=== PATIENT | female | born 1950 | race Caucasian/White ===

== ENCOUNTER 2024-03-31 12:01 | Outpatient (AMB) | payer MEDICARE, SELFPAY ==
--- NOTE | 2024-03-31 12:30 | A.OFFPC_ITS ---
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 Intake Note: New patient visit Allergies atorvastatin Allergy (Unknown, Verified 03/31/24 12:39) Unknown diclofenac Allergy (Unknown, Verified 03/31/24 12:42) Unknown hydromorphone Allergy (Unknown, Verified 03/31/24 12:42) Nausea and Vomiting NSAIDS (Non-Steroidal Anti-Inflamma Allergy (Unknown, Verified 03/31/24 12:42) Diarrhea Tobacco use date assessed: 03/31/24 Fall risk assessment: 1 Fall in past year Last assessed Fall Risk: 03/31/24 Dental Screening Dental Screen Date: 03/31/24 Did you have a dental visit in the last 12 months?: Yes Did you have a dental problem in the last 6 months where you did not have access to dental care?: No Was dental information given to patient?: Patient has dentist HPI HPI Comments History of Present Illness Details This is a 74 year old female with a pmhx of controlled type 2 DM, HLD, HTN, asthma, OAB presenting to [facility] care from [facility]. She used to see Dr. Fang for asthma. She had an inhaler to take as needed. This month she went to urgent care for asthma. Prescribed Wixela. Symptoms calmed down. She would like to remain on maintenance inhaler, but she wants to know if she can take something that is not as strong. No PFT in years. No recollection of CXR. Asthma symptoms include SOB, wheezing, cough. She has allergies. She is on Singu lair. Printed orders for mammogram and bone density to be done at [facility]. History of ataxia-evaluation with Dr. Hastings. Put on vitamin b supplements. She says symptoms improved. HTN treated with Lisinopril. HLD treated with Rosuvastatin. LDL 88 in August 2023 (see scanned report). 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 She is overdue and will schedule her annual. Type 2 DM-last a1c 6.8%. She fractured her foot a few months ago. She is out of the boot. Seeing Dr. Vega. ROS: Constitutional: No unexplained weight loss, fever, chills, fatigue or night sweats. Respiratory: see HPI Cardiovascular: No chest pain, chest pressure or chest discomfort. No palpitations or pedal edema. Gastrointestinal: No anorexia, nausea, vomiting or diarrhea. No abdominal pain or blood in stool. Physical exam: Constitutional: Alert, in no distress. Ear, Nose and Throat: Canals clear. TMs normal. Normal nasal mucosa. No nasal discharge. No oral lesions. Neck: Supple, Full range of motion. No lymphadenopathy. Respiratory: Clear to auscultation. Cardiovascular: S1 S2 regular. No murmurs. Extremities: Warm and well perfused. No clubbing, cyanosis or edema. Psychiatric: Normal mood and affect [facility] Medical History (Updated 03/31/24 @ 13:45 by IGOR Dorsey) Ataxia Perennial allergic rhinitis Fracture of fifth metatarsal bone of right foot Mixed hyperlipidemia Essential hypertension Mild persistent asthma without complication Controlled type 2 diabetes mellitus Osteoarthritis Allergic rhinitis Diabetes HTN (hypertension) Surgical History (Updated 03/31/24 @ 13:45 by IGOR Dorsey) Hx of tubal ligation History of appendectomy H/O shoulder replacement Family History (Updated 03/31/24 @ 12:49 by Rosio Stokes CMA) Mother Stroke Father CKD (chronic kidney disease) Diabetes Sister Arthritis Social History (Updated 03/31/24 @ 12:50 by Rosio Stokes CMA) Housing: House Patient Tobacco Use Status: Never used Tobacco e-Cigarette/Vaping Use: Never Used service: Yes Current occupational status: retired Cognitive needs: No Hearing needs: No Vision needs: No Questionnaire AUDIT C Alcohol Use Questionnaire (AUDIT-C) 1. How often do you have a drink containing alcohol?: Never 3. How often do you have six or more drinks on one occasion?: Never Total Score: 0 Physical exam (Primary Care) Vital Signs: Last Vital Signs Pulse 96 03/31/24 12:36 Resp 16 03/31/24 12:36 BP 138/80 03/31/24 12:36 Pulse Ox 97 03/31/24 12:36 Oxygen Delivery Method Room Air 03/31/24 12:36 BMI result Body Mass Index 34.6 Tobacco/Smoking Status: Tobacco use Status Tobacco use date assessed 03/31/24 03/31/24 12:47 Patient Tobacco Use Status Never used Tobacco 03/31/24 12:50 e-Cigarette/Vaping Use Never Used 03/31/24 12:50 Assessment and Plan Assessment & Plan (1) Controlled type 2 diabetes mellitus: Code(s): E11.9 - Type 2 diabetes mellitus without complications (2) Mild persistent asthma without complication: Code(s): J45.30 - Mild persistent asthma, uncomplicated (3) Essential hypertension: Code(s): I10 - Essential (primary) hypertension (4) Mixed hyperlipidemia: Code(s): E78.2 - Mixed hyperlipidemia (5) Perennial allergic rhinitis: Code(s): J30.89 - Other allergic rhinitis Plan Fasting labs ordered. She has orders for mammo and dexa and will call [facility] to schedule. Update PFT and obtain CXR for asthma. Start Pulmicort. SEs and administration reviewed. Albuterol 2 puffs q4h prn. Continue other medications. MWV in 3 months. Orders: Orders Lipid Panel Today E11.9 - Type 2 diabetes mellitus without complications, J45.30 - Mild persistent asthma, uncomplicated Hemoglobin A1c Today E11.9 - Type 2 diabetes mellitus without complications, J45.30 - Mild persistent asthma, uncomplicated Basic Metabolic Panel Today E11.9 - Type 2 diabetes mellitus without complications, J45.30 - Mild persistent asthma, uncomplicated MM screening mammo BI Today Z12.31 - Encounter for screening mammogram for malignant neoplasm of breast XR DEXA axial skeleton Today Z78.0 - Asymptomatic menopausal state XR chest 2V Today J45.30 - Mild persistent asthma, uncomplicated PFT pulmonary function test Today J45.30 - Mild persistent asthma, uncomplicated Medications: New budesonide 180 mcg/actuation (Pulmicort Flexhaler) Gargle and rinse mouth after each use. 1 inh inhalation Q12H 1 ea 5RF Coding Level of Care Code New Pt Level 4 (49544) Complex EM visit Add On G2211 Diagnoses Controlled type 2 diabetes mellitus E11.9 Mild persistent asthma without complication J45.30 Essential hypertension I10 Mixed hyperlipidemia E78.2 Perennial allergic rhinitis J30.89
[2024-03-31 12:36] VITALS: BP 138/80; PULSE 96; RESP 16; O2SAT 97; BMI 34.6
== END 2024-03-31 13:25 | disposition home or self-care (01) ==
PROVIDERS: PCP Physician Assistant Medical; Visit Provider Physician Assistant Medical
DX: E11.9 Type 2 diabetes mellitus without complications (principal); J45.30 Mild persistent asthma, uncomplicated; I10 Essential (primary) hypertension; E78.2 Mixed hyperlipidemia; J30.89 Other allergic rhinitis
CPT/HCPCS: 99204; G2211

== ENCOUNTER 2024-07-03 10:27 | Outpatient (AMB) | payer MEDICARE, SELFPAY ==
--- NOTE | 2024-07-03 10:34 | A.OFFPC_ITS ---
Vital Signs 07/03/24 10:39 Height 5 ft 5 in Weight 191 lb 8 oz BMI 31.9 BP 126/74 Blood Pressure Location Rt brachial Position Sitting Pulse 88 Pulse Source Pulse Oximeter Pulse Oximetry (%) 99 Oxygen Delivery Method Room Air Intake Visit Reasons: follow up Allergies atorvastatin Allergy (Unknown, Verified 03/31/24 12:39) Unknown diclofenac Allergy (Unknown, Verified 03/31/24 12:42) Unknown hydromorphone Allergy (Unknown, Verified 03/31/24 12:42) Nausea and Vomiting NSAIDS (Non-Steroidal Anti-Inflamma Allergy (Unknown, Verified 03/31/24 12:42) Diarrhea Tobacco use date assessed: 03/31/24 Dental Screening Dental Screen Date: 03/31/24 HPI HPI Comments History of Present Illness Details This is a 74 year old female with a pmhx of controlled type 2 DM, HLD, HTN, asthma, OAB presenting for annual follow up. Asthma-taking Arnuity 100 mcg 1 puff a day. She has not needed to use her rescue inhaler in the past 3 months. No respiratory infections since her last visit. No ER visits or hospitalizations. She would like to decrease Arnuity to 50 mcg. She used to see Dr. Fang for asthma. She had an inhaler to take as needed. She had 1 asthma exacerbation prior to seeing me in March at which time she was placed on Wixela. She did not require systemic steroids. She has a PFT scheduled 07/21/2024, and she will have the chest x-ray completed the same day. She is on Singulair. She received a COVID-19 booster and flu vaccine this season. She has received the RSV at [facility] as well. She will double check to make sure she is up to date pneumonia vaccine at her [facility]. She has an umbilical hernia for years. It doesn't hurt, but it bothers her that it sticks out. She saw a surgeon at [facility] years ago, and she did not like his bedside manner. She declines referral for a 2nd opinion today. Bone density and mammogram were done a [facility]. She received letters that they were normal The records have been requested. History of ataxia-evaluation with Dr. Hastings. Put on vitamin b supplements with symptom improvement. HTN treated with Lisinopril. HLD treated with Rosuvastatin. LDL 88 in August 2023 (see scanned report). 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 She is overdue and will schedule her annual. Type 2 DM-last a1c 6.8%. Overdue for labs. The patient is not sure when she last did a colonoscopy, but it was done at [facility]. Records requested. ROS: Constitutional: No unexplained weight loss, fever, chills, fatigue or night sweats. Eyes: No vision changes, blurry vision, double vision, eye pain, eye redness, eye discharge. ENT: No hearing loss, sneezing, congestion, runny nose or sore throat. Respiratory: No shortness of breath, cough or sputum production. Cardiovascular: No chest pain, chest pressure or chest discomfort. No palp itations or pedal edema. Gastrointestinal: No anorexia, nausea, vomiting or diarrhea. No abdominal pain or blood in stool. Genitourinary: No dysuria, hematuria, urinary frequency. Neurologic: No headache, dizziness, syncope, unilateral weakness, ataxia, numbness or tingling in the extremities. Musculoskeletal: No muscle pain Hematologic/Lymphatics: No bleeding or bruising. No painful lymph nodes. Skin: No rash Endocrine: No cold or heat intolerance. No polyuria or polydipsia. Psychiatric: No depression or anxiety. Physical exam: Constitutional: Alert, in no distress. Head: Normocephalic. Eyes: Pupils are equal, round and reactive to light. Extraocular muscles intact. Ear, Nose and Throat: Canals clear. TMs price and pearly. Clear air-fluid bubbles on the right. Normal nasal mucosa. No nasal discharge. No oral lesions. Neck: Supple, Full range of motion. No lymphadenopathy. No palpable thyroid masses. Respiratory: Clear to auscultation. Cardiovascular: S1 S2 regular. No murmurs. No carotid bruits. Gastrointestinal: Abdomen soft, non-tender, non-distended. Normal bowel sounds. No palpable masses. Moderate sized, reducible umbilical hernia.. Skin: No rashes Extremities: Warm and well perfused. No clubbing, cyanosis or edema. 3+ peripheral pulses bilaterally. Psychiatric: Normal mood and affect [facility] Medical History (Updated 03/31/24 @ 13:45 by IGOR Dorsey) Ataxia Perennial allergic rhinitis Fracture of fifth metatarsal bone of right foot Mixed hyperlipidemia Essential hypertension Mild persistent asthma without complication Controlled type 2 diabetes mellitus Osteoarthritis Allergic rhinitis Diabetes HTN (hypertension) Surgical History (Updated 03/31/24 @ 13:45 by IGOR Dorsey) Hx of tubal ligation History of appendectomy H/O shoulder replacement Family History (Updated 03/31/24 @ 12:49 by Rosio Stokes CMA) Mother Stroke Father CKD (chronic kidney disease) Diabetes Sister Arthritis Social History (Updated 03/31/24 @ 12:50 by Rosio Stokes CMA) Housing: House Patient Tobacco Use Status: Never used Tobacco e-Cigarette/Vaping Use: Never Used service: Yes Current occupational status: retired Cognitive needs: No Hearing needs: No Vision needs: No Questionnaire AUDIT C Alcohol Use Questionnaire (AUDIT-C) 2. How many drinks containing alcohol do you have on a typical day when you are drinking?: 1 or 2 3. How often do you have six or more drinks on one occasion?: Never Total Score: 0 Physical exam (Primary Care) Vital Signs: Last Vital Signs Pulse 88 07/03/24 10:39 BP 126/74 07/03/24 10:39 Pulse Ox 99 07/03/24 10:39 Oxygen Delivery Method Room Air 07/03/24 10:39 BMI result Body Mass Index 31.9 Tobacco/Smoking Status: Tobacco use Status Tobacco use date assessed 03/31/24 07/03/24 10:36 Patient Tobacco Use Status Never used Tobacco 07/03/24 10:36 e-Cigarette/Vaping Use Never Used 07/03/24 10:36 Coding Level of Care Code Est Pt Level 5 (24104) Complex EM visit Add On G2211 Diagnoses Controlled type 2 diabetes mellitus E11.9 Mild persistent asthma without complication J45.30 Essential hypertension I10 Mixed hyperlipidemia E78.2 Perennial allergic rhinitis J30.89 Time Spent (min) 46 Comment Chart review, direct patient care, completing documentation Assessment & Plan Assessment & Plan (1) Controlled type 2 diabetes mellitus: Code(s): E11.9 - Type 2 diabetes mellitus without complications Category: Medical Plan: Discussed pathophysiology of Type II Diabetes Mellitus with the patient in detail.? 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 Discussed lifestyle modification with the patient. Recommended 30 minutes of moderately vigorous exercise 5 days per week to promote weight loss. Eye exam up-to-date. Check hemoglobin A1c. Ordered urine testing for microalbumin. (2) Mild persistent asthma without complication: Code(s): J45.30 - Mild persistent asthma, uncomplicated Category: Medical Plan: She can try step-down in therapy to Arnuity 50 mcg 1 puff once daily. Continue albuterol 2 puffs every 4 hours as needed for coughing, wheezing and shortness of breath. If she requires her rescue inhaler more than once a week she will contact the office. Continue Singulair 10 mg daily. She will have PFT and chest x-ray completed-see HPI. (3) Essential hypertension: Code(s): I10 - Essential (primary) hypertension Category: Medical Plan: Controlled. Continue lisinopril. Recommended low-sodium diet and avoidance of caffeine. (4) Mixed hyperlipidemia: Code(s): E78.2 - Mixed hyperlipidemia Category: Medical Plan: Continue rosuvastatin. Recommended the Mediterranean diet and weight loss. (5) Perennial allergic rhinitis: Code(s): J30.89 - Other allergic rhinitis Category: Medical Plan: Continue Zyrtec and Singulair. Plan Follow up in 6 months or sooner as needed. Orders: Orders Comprehensive Met. Panel Today E11.9 - Type 2 diabetes mellitus without complications Complete Blood Count Auto Diff Today I10 - Essential (primary) hypertension, J30.89 - Other allergic rhinitis Microalbumin, Random (w Creat) Today E78.2 - Mixed hyperlipidemia, I10 - Essential (primary) hypertension TSH reflex Free T4 Today I10 - Essential (primary) hypertension Medications: New fluticasone furoate 50 mcg/actuation (Arnuity Ellipta) 1 inh inhalation DAILY 30 ea 3RF lisinopril 40 mg PO DAILY 90 tabs 3RF Discontinued fluticasone furoate 100 mcg/actuation (Arnuity Ellipta) Discontinued Reason: Doctor's Order 1 inh inhalation DAILY 30 ea 5RF
[2024-07-03 10:39] VITALS: BP 126/74; PULSE 88; O2SAT 99; BMI 31.9
== END 2024-07-03 11:28 | disposition home or self-care (01) ==
PROVIDERS: PCP Physician Assistant Medical; Visit Provider Physician Assistant Medical
DX: E11.9 Type 2 diabetes mellitus without complications (principal); J45.30 Mild persistent asthma, uncomplicated; I10 Essential (primary) hypertension; E78.2 Mixed hyperlipidemia; J30.89 Other allergic rhinitis

== ENCOUNTER → 2024-07-03 10:27 | Outpatient (BNVA) | payer MEDICARE, SELFPAY | PROVIDERS: PCP Physician Assistant Medical; Visit Provider Physician Assistant Medical | DX: E11.9 Type 2 diabetes mellitus without complications (principal); J45.30 Mild persistent asthma, uncomplicated; I10 Essential (primary) hypertension; E78.2 Mixed hyperlipidemia; J30.89 Other allergic rhinitis; Z79.899 Other long term (current) drug therapy | CPT/HCPCS: 99212 ==

== ENCOUNTER 2024-07-13 12:46 | Outpatient (REF) | payer MEDICARE, SELFPAY ==
[2024-07-13 14:25] LABS: MANUAL DIFF FLAG NO
[2024-07-13 14:27] LABS: Basophils Absolute Auto 0.1 X10*3/uL (0.0-0.2); Basophils Percent Auto 0.6 % (0-2); Eosinophils Percent Auto 12.4 % (0-4); Hematocrit 40.1 % (37.0-47.0); Hemoglobin 13.1 g/dl (12.0-16.0); Imm Gran Abs Auto 0.05 X10*3/uL (0.00-0.03); Imm Gran Pct Auto 0.6 % (0.0-0.4); Lymphocytes Absolute Auto 2.9 X10*3/uL (1.2-4.9); Lymphocytes Percent Auto 34.8 % (20-40); Mean Corpuscular HGB Conc 32.7 g/dl (31.0-35.0); Mean Corpuscular Hemoglobin 30.8 pg (27.0-33.0); Mean Corpuscular Volume 94.1 fL (80.0-98.0); Mean Platelet Volume 11.1 fL (9.4-12.3); Monocytes Absolute Auto 0.5 X10*3/uL (0.1-1.2); Monocytes Percent Auto 5.4 % (2-11); Neutrophils Absolute Auto 3.9 x10*3/uL (2.0-8.3); Neutrophils Percent Auto 46.2 % (45-73); Platelet Count 213 X10*3/uL (160-400); Red Blood Count 4.26 X10*6/uL (4.20-5.50); Red Cell Distribution Width 13.2 % (11.0-16.0); White Blood Count 8.3 X10*3/uL (4.8-10.8)
[2024-07-13 14:44] LABS: Alanine Aminotransferase 48 U/L (0-31); Albumin Level 4.1 g/dL (3.5-5.0); Alkaline Phosphatase 112 U/L (39-117); Anion Gap 13 (12-20); Aspartate Amino Transferase 61 U/L (5-31); Bilirubin Total 0.4 mg/dL (0.0-1.0); Blood Urea Nitrogen 17 mg/dL (9-16); Calcium 11.2 mg/dL (8.4-10.2); Carbon Dioxide 26 mmol/L (22-29); Chloride 102 mmol/L (96-108); Cholesterol 171 mg/dL (<200); Estimated Glomerular Filt Rate 52; Glucose Random 306 mg/dL (60-115); HDL Cholesterol 34 mg/dL (>40); LDL Cholesterol Calculated 85 mg/dL (<100); Potassium 4.1 mmol/L (3.3-5.1); Sodium 137 mmol/L (135-145); Total Protein 7.6 g/dL (6.5-8.0); Triglycerides 264 mg/dL (<150)
[2024-07-13 14:59] LABS: Creatinine Urine 216.91 mg/dL; Microalbum/Creatinine Ratio Ur 28.5 ug/mg cr (<30)
[2024-07-13 15:00] LABS: TSH reflex Free T4 1.03 uIU/mL (0.32-4.0)
[2024-07-13 15:16] LABS: Hemoglobin A1C 482.2248 umol/L; Total Hemoglobin (HGBA1C) 3376.9582 umol/L
[2024-07-13 15:22] LABS: Hemoglobin A1c % > 14.0 % (<6.0)
== END 2024-07-13 12:47 | disposition home or self-care (01) ==
LOC: HO.WFDLDS 12:46
PROVIDERS: Visit Provider Physician Assistant Medical
DX: I10 Essential (primary) hypertension (principal); J30.89 Other allergic rhinitis; E11.9 Type 2 diabetes mellitus without complications; E78.2 Mixed hyperlipidemia; J45.30 Mild persistent asthma, uncomplicated
CPT/HCPCS: 36415; 80053; 80061; 82043; 82570; 83036; 84443; 85025

== ENCOUNTER 2024-07-21 08:43 | Outpatient (AMB) | payer MEDICARE, SELFPAY ==
--- NOTE | 2024-07-21 07:41 | A.OFFVIS_ITS ---
Vital Signs 07/21/24 08:48 Height 5 ft 5 in Weight 189 lb 9.561 oz BMI 31.5 BP 118/72 Blood Pressure Location Rt brachial Position Sitting Pulse 72 Pulse Source Pulse Oximeter Intake Visit Reasons: type 2 dm/LVM Intake Note: NEW Patient presents today to establish treatment for Type 2 Diabetes Mellitus: Last Diabetic eye exam was on: DUE Last Podiatry exam was on: Does not see a Adobe Architect Most recent HbA1c: >14.0%, 07/13/2024 Random Glucose- 250 mg/dL, Today Engineering Program Manager Required: No Accompanied by: Self / Same As Patient Allergies atorvastatin Allergy (Unknown, Verified 07/21/24 08:52) Unknown diclofenac Allergy (Unknown, Verified 07/21/24 08:52) Unknown hydromorphone Allergy (Unknown, Verified 07/21/24 08:52) Nausea and Vomiting NSAIDS (Non-Steroidal Anti-Inflamma Allergy (Unknown, Verified 07/21/24 08:52) Diarrhea HPI Comments Details: 74 YO female who is seen in consultation for T2DM at the request of PCP. She had broken her foot in January and was moving less. Was seen in March for URI and started on inhaler which she believes caused diarrhea and increased nasal congestion. Because she has been she has been drinking a great deal juice which he has cut back on over the last few weeks. Diarrhea is improving. Initially diagnosed with T2DM diagnosed at age 70 pre diabetic for many years Was initially started on treatment with diet and exercise Current regimen: metformin ER 500 mg bid Was prescribed 07/03/24 but she did not due to having diarrhea and no way to check her sugars. Glucometer and supplies and YEOXIN VMall Cherri 3 were all sent to her pharmacy. Reports feeling low sugars: none Most recent A1C >14.0 up from 6.8% Family history of T2DM in father, brother Has eyes checked yearly, last eye exam June 2024, [denies] retinopathy. Denies neuropathy, last foot exam today in the office does not see podiatry. Has nephropathy, on ANGELA. 07/12/24 microalbumin 62.0 eGFR 52 Has HLD, on statin. Last LDL 85 as measured on 07/12/2024. [Denies] CAD. very rare CP when she lies on her right side due to previous surgery, this is reproducable when she pushed on chest and upper arm. Some mild nexk pain Diet: no particular diet no excess sweets Weight: weight down 25 pounds Ate less secondary to decrease appetite, mucous and had diarrhea which is improving No prior diabetes education. [facility] screen Fibrosis-4 (Fib-4) Index for liver fibrosis (calculated on lab work done:07/12/24 ) 3.06 points Advanced fibrosis Metavir stage F3 to F4 Approximate Fibrosis stage Elin 2-3 *Use with caution in patients <35 or >65 years old, as the score has been shown to be less reliable in these patients. Prior Imaging none Action Plan: Patient with elevated liver enzymes and fib 4 index shows liver fibrosis although this tool maybe less reliable in patients over 65 years old. PCP alerted to +Fib 4 screen for liver fibrosis [facility] Medical History (Updated 07/21/24 @ 14:39 by IGOR Dorsey) Elevated LFTs Uncontrolled type 2 diabetes mellitus with hyperglycemia Ataxia Perennial allergic rhinitis Fracture of fifth metatarsal bone of right foot Mixed hyperlipidemia Essential hypertension Mild persistent asthma without complication Osteoarthritis Allergic rhinitis Diabetes HTN (hypertension) Surgical History Hx of tubal ligation History of appendectomy H/O shoulder replacement Family History Mother Stroke Father CKD (chronic kidney disease) Diabetes Sister Arthritis Social History Housing: House Patient Tobacco Use Status: Never used Tobacco e-Cigarette/Vaping Use: Never Used service: Yes Current occupational status: retired Cognitive needs: No Hearing needs: No Vision needs: No Physical Exam Vital Signs: Last Vital Signs Pulse 72 07/21/24 08:48 BP 118/72 07/21/24 08:48 BMI result Body Mass Index 31.5 Absence of Cushingoid features. Absence of acromegalic features. Neck exam reveals nl size thyroid about 15 gms. No thyroid nodules palpable. No carotid bruits present. Lungs CTA. Heart S1 S2, Reg R/R. No M/R/ G. Skin exam reveals absence of vitiligo or acanthosis nigricans. Abdominal exam reveals Soft NT/ND with NA BS. No organomegaly present. Const Other: Absence of Cushingoid features. Absence of acromegalic features. Neck exam reveals nl size thyroid about 15 gms. No thyroid nodules palpable. No carotid bruits present. Lungs CTA. Heart S1 S2, Reg R/R. No M/R G. Skin exam reveals absence of vitiligo or acanthosis nigricans. No edema Visual exam of foot performed. No ulcerations or open lesions. No inter digit maceration or fissuring. + onychomycosis,nailbeds yellow, thickened but not elongated, no callouses. Sensation diminshed to monofilament exam. Vibratory sensation is diminshed with 128 Hz tuning fork. Neck Other: . Extrem Other: Visual exam of foot performed. No ulcerations or open lesions. No onchomycosis, no callouses.Pulses 2 + distally Sensation intact to monofilament exam. Vibratory sensation sensed is intact with 128 Hz tuning fork Results Reviewed Results Reviewed: Laboratory Last Values Glucose (Clinic) 250 mg/dL (60-115) H 07/21/24 08:51 Assessment & Plan Assessment & Plan (1) Uncontrolled type 2 diabetes mellitus with hyperglycemia: Code(s): E11.65 - Type 2 diabetes mellitus with hyperglycemia Category: Medical Plan: Type 2 diabetic with poor control and A1c greater than 14%07/13/24. She is afraid of needles in adamant about not wanting to go on insulin. She has elevated liver function tests with fib 4 screen positive for fibrosis and we will hold off on considering GLP 1 receptor agonist until she sees GI. She has been following a better diet and I have called her pharmacy to confirm they have the prescription for test strips, lancets and glucometer. I spoke directly with the pharmacist and they have all 3 of these but her waiting for colds on the prescription which I have sent. Awaiting response on Pintley 3 to see if her insurance will cover. Orders: Referrals Diabetes Education Referral E11.65 - Type 2 diabetes mellitus with hyperglycemia Medications: Changed From blood sugar diagnostic As directed to check glucose up to 3 times daily 100 ea 5RF To blood sugar diagnostic (FreeStyle Lite Strips) As directed to check glucose up to 3 times daily for uncontrolled diabetes type 2 11.9 100 ea 5RF From lancets Use to monitor blood glucose 3 times daily. 100 ea 5RF E11.65 - Type 2 diabetes mellitus with hyperglycemia To lancets (FreeStyle Lancets) Use to monitor blood glucose 3 times daily. uncontrolled diabetes type 2 11.9 100 ea 5RF E11.9 E11.65 - Type 2 diabetes mellitus with hyperglycemia From blood-glucose meter,continuous Use daily to monitor blood glucose levels continuously. 1 ea 0RF To blood-glucose meter,continuous (FreeStyle Cherri 3 [place]) Use daily to monitor blood glucose levels continuously. 1 ea 0RF 11.9 From blood-glucose meter 3 times a day to check blood glucose 1 ea 0RF E11.9 - Type 2 diabetes mellitus without complications To blood-glucose meter (FreeStyle Lite Meter kit) 3 times a day to check blood glucose for uncontolled diabetes type 2 11.9 1 ea 0RF E11.9 - Type 2 diabetes mellitus without complications From blood-glucose sensor apply new sensor every 14 days 2 ea 11RF E11.65 - Type 2 diabetes mellitus with hyperglycemia To blood-glucose sensor (FreeStyle Cherri 3 Sensor device) apply new sensor every 14 days 2 ea 11RF E11.9 E11.65 - Type 2 diabetes mellitus with hyperglycemia Discontinued fluticasone furoate 50 mcg/actuation Discontinued Reason: Doctor's Order 1 inh inhalation DAILY 30 ea 3RF Coding Level of Care Code New Pt Level 4 (36224) Complex EM visit Add On G2211 Diagnoses Uncontrolled type 2 diabetes mellitus with hyperglycemia E11.65 Time Spent (min) 40 Comment time spent hpi, pe, notes plan
[2024-07-21 08:48] VITALS: BP 118/72; PULSE 72; BMI 31.5
[2024-07-21 09:00] LABS: Glucose, Whole Blood 250 mg/dL (60-115)
== END 2024-07-21 09:36 | disposition home or self-care (01) ==
LOC: HO.ENCR 08:43
PROVIDERS: PCP Physician Assistant Medical; Visit Provider Nurse Practitioner Adult Health
DX: E11.65 Type 2 diabetes mellitus with hyperglycemia (principal)
CPT/HCPCS: 99204; G2211

== ENCOUNTER 2024-07-21 12:35 | Outpatient (REF) | payer MEDICARE, SELFPAY ==
--- NOTE | 2024-07-21 13:01 | PFT_ITS ---
Flows: FEV1: 108 % of predicted at 2.32 L FVC: 101 % of predicted at 2.82 L FEV1/FVC: 82 % Bronchodilator response: Present in small to medium airways only Volumes: Total lung capacity: 92 % of predicted at 4.67 L Residual volume: 82 % of predicted at 1.74 L Slow vital capacity: 101 % of predicted at 2.93 L Expiratory reserve volume: 30 % of predicted at 0.22 L Diffusion capacity: Borderline mildly decreased. Impression: No obstructive or restrictive ventilatory defects. Bronchodilator response present in small to medium airways only. Decreased expiratory reserve volume suggests extrathoracic restriction likely secondary to abdominal obesity. MTDD
== END 2024-07-21 12:36 | disposition home or self-care (01) ==
LOC: HO.RESP 12:35
PROVIDERS: PCP Physician Assistant Medical; Visit Provider Physician Assistant Medical
DX: J45.30 Mild persistent asthma, uncomplicated (principal); E11.65 Type 2 diabetes mellitus with hyperglycemia
CPT/HCPCS: 82947; 94010; 94640; 94727; 94729; 99202

== ENCOUNTER → 2024-07-21 13:01 | Outpatient (BNV) | payer MEDICARE, SELFPAY | PROVIDERS: PCP Physician Assistant Medical; Visit Provider Internal Medicine Pulmonary Disease | DX: J45.30 Mild persistent asthma, uncomplicated (principal) | CPT/HCPCS: 94060; 94727; 94729 ==

== ENCOUNTER 2024-07-31 13:26 | Outpatient (AMB) | payer MEDICARE, SELFPAY ==
--- NOTE | 2024-07-31 13:30 | MHC.AMDMED ---
Intake Intake Visit Reasons: [id number] Allergies atorvastatin Allergy (Unknown, Verified 07/21/24 08:52) Unknown diclofenac Allergy (Unknown, Verified 07/21/24 08:52) Unknown hydromorphone Allergy (Unknown, Verified 07/21/24 08:52) Nausea and Vomiting NSAIDS (Non-Steroidal Anti-Inflamma Allergy (Unknown, Verified 07/21/24 08:52) Diarrhea HPI Comprehensive Diabetes Asmnt Most Recent Diabetes Results: Microalb/Creat Ratio 28.5 ug/mg cr (<30) 07/13/24 Cholesterol 171 mg/dL (<200) 07/13/24 HDL Cholesterol 34 mg/dL (>40) L 07/13/24 Triglycerides 264 mg/dL (<150) H 07/13/24 Creatinine 1.03 mg/dL (0.5-1.4) 07/13/24 Blood Urea Nitrogen 17 mg/dL (9-16) H 07/13/24 Sodium 137 mmol/L (135-145) 07/13/24 Potassium 4.1 mmol/L (3.3-5.1) 07/13/24 Chloride 102 mmol/L (96-108) 07/13/24 Carbon Dioxide 26 mmol/L (22-29) 07/13/24 Calcium 11.2 mg/dL (8.4-10.2) H 07/13/24 AST 61 U/L (5-31) H 07/13/24 ALT 48 U/L (0-31) H 07/13/24 Total Protein 7.6 g/dL (6.5-8.0) 07/13/24 Albumin 4.1 g/dL (3.5-5.0) 07/13/24 [facility] Medical History (Updated 07/21/24 @ 14:39 by IGOR Dorsey) Elevated LFTs Uncontrolled type 2 diabetes mellitus with hyperglycemia Ataxia Perennial allergic rhinitis Fracture of fifth metatarsal bone of right foot Mixed hyperlipidemia Essential hypertension Mild persistent asthma without complication Osteoarthritis Allergic rhinitis Diabetes HTN (hypertension) Surgical History Hx of tubal ligation History of appendectomy H/O shoulder replacement Family History Mother Stroke Father CKD (chronic kidney disease) Diabetes Sister Arthritis Social History Housing: House Patient Tobacco Use Status: Never used Tobacco e-Cigarette/Vaping Use: Never Used service: Yes Current occupational status: retired Cognitive needs: No Hearing needs: No Vision needs: No Assessment & Plan Assessment & Plan (1) Uncontrolled type 2 diabetes mellitus with hyperglycemia: Code(s): E11.65 - Type 2 diabetes mellitus with hyperglycemia Plan: Diabetes self-management education and support participation record Assessment/scale: 1= needs instructed? 2= needs review? 3= comprehend keep point? 4= demonstrates understanding/ competent? NC= Not Covered Topics Learning Objective: Initial visit Initial or post srvc Initial or post srvc Initial or post srvc Initial or post srvc Initial or post srvc Post srvc Comments Pre Edu-assessment/plan Outcome or reassess Outcome or reassess Outcome or reassess Outcome or reassess Outcome or reassess Outcome or reassess Diabetes pathophysiology 1 Healthy eating 2 Being active 2 Taking medication 1 Monitoring glucose 1 Acute complication 1 Chronic complicated 2 Lifestyle and healthy coping 1 Diabetes distress in support 1 ?Diabetes pathophysiology: ?Defined diabetes med identify own type of diabetes; list 3 options for treating diabetes Healthy eating: ?Described effect of type, amount and ?timing of food on blood glucose; list 3 methods for planning meal Being active: ?State effect of exercise on blood glucose level Taking medication: ?State effect of diabetes medications on diabetes; name diabetes medications taking, action and side effects Monitoring glucose: ?Identify recommended blood glucose targets and personal target Acute complication: ?List symptoms and treatment of hyper and hypoglycemia, DKA, sick day guidelines and guidelines for severe weather or situations of crisis and diabetes supply manage Chronic complication: ?To find the relationship of blood glucose levels to long-term complications of diabetes in screening and preventative measures Lifestyle and healthy coping: ?Described lifestyle and healthy coping strategies to rule out diabetes self-management Diabetes to stress and support: ?Recognize Diabetes to stress and be able to identified support options Learning objectives: The patient was provided with verbal and written education on the following topics as outlined below. The patient met all learning objectives and was able to verbalize understanding and provide teach back of education topics discussed . The patient was provided with the opportunity to ask questions and all questions were answered. Patient Assessment Assess patient education level/literacy/barriers, patient can identify carbs that she is currently eating from carb list Patient questions/concerns, patient's last A1c on 07/13/2024 14%. Patient stated she believes because she was drinking large quantities of fruit juice that has driven her A1c up. Since end of June she is reduce the amount of fruit juice, and started on metformin ER 500 mg b.i.d. She is currently awaiting glucometer supplies from [facility] What is Diabetes? Pathophysiology How the body produces and uses insulin Identify type of DM Risk factors Signs of Diabetes Brief overview of Diabetes Management Monitoring blood sugar Following a meal plan Regular exercise Maintaining a healthy weight Taking medication as needed Members of the care team (PCP, RN, MA, RD, CDE, cash controller) Blood glucose monitoring When/how often to test Target blood sugar ranges Suggested to patient when she get glucometer she test glucose once a day at very times of the day. Either before meals, or 2 hours post meal Introduction to Nutrition Importance of healthy diet in managing DM Diet is personalized to individual preference Review patient?s regular diet/food preferences Who prepares meals/does food shopping/ Dining out?/ Barriers? How diet effects glucose Eating 3 balanced meals a day with small, healthy snacks between meals Review food groups Carbohydrates: What is a carbohydrate/Which food/food groups are considered carbohydrates Effect of carbohydrates on blood glucose Portion sizes Reading food labels Basic carb counting (if applicable per nursing assessment) Plate method Meal planning Recommendations: Follow plate method, consistent carbs and read nutritional labels. Smart Goal:Identify the current foods that she is eating that contain carbohydrate Educational Materials: The patient was provided with the following written educational materials: Planning Healthy Meals Handout Patient Response to instructions: Comprehension of Instructions: Fair Readiness to make changes: Contemplation How confident they feel about making changes: Positive Portions of this note were created using voice recognition software, please excuse any words or phrases that may have been misinterpreted. Patient Instructions: Include regular daily activity. ADA recommends 30 minutes of exercise 5 days a week. Weight loss talk to PCP or Wealth Management Manager before starting new plan. Test blood sugar as directed; Fasting and 2hpp largest meal. Watch trends in results. Utilize results and to assess how food, physical activity and medications affect blood sugar results. Bring glucometer or CGM to next visit. Be knowledgeable about diabetes medication, its action, side effects, efficacy, toxicity, prescribed dosage, appropriate timing and frequency of administration, effect of missed and delayed doses and instructions for storage, travel and safety. Problem solving techniques to monitor hypo/hyperglycemia episodes and treatments. Reduce risk reduction behaviors, smoking cessation, regular eye, foot and dental examinations. Coding Level of Care Code Est Pt Level 1 (70707) Diagnoses Uncontrolled type 2 diabetes mellitus with hyperglycemia E11.65
== END 2024-07-31 14:54 | disposition home or self-care (01) ==
PROVIDERS: PCP Physician Assistant Medical; Visit Provider Registered Nurse Diabetes Educator
DX: E11.65 Type 2 diabetes mellitus with hyperglycemia (principal)

== ENCOUNTER → 2024-07-31 13:26 | Outpatient (BNVA) | payer MEDICARE, SELFPAY | PROVIDERS: PCP Physician Assistant Medical; Visit Provider Registered Nurse Diabetes Educator | DX: E11.65 Type 2 diabetes mellitus with hyperglycemia (principal) | CPT/HCPCS: 99211 ==

== ENCOUNTER 2024-08-08 09:43 | Outpatient (REF) | payer MEDICARE, SELFPAY | END 2024-08-08 09:44 | disposition home or self-care (01) | LOC: HO.US 09:43 | PROVIDERS: PCP Physician Assistant Medical; Visit Provider Physician Assistant Medical | DX: R79.89 Other specified abnormal findings of blood chemistry (principal); E11.65 Type 2 diabetes mellitus with hyperglycemia | CPT/HCPCS: 76705; 76981 ==

== ENCOUNTER → 2024-08-08 09:45 | Outpatient (BNV) | payer MEDICARE, SELFPAY | PROVIDERS: PCP Physician Assistant Medical; Visit Provider Radiology Diagnostic Radiology | DX: K76.0 Fatty (change of) liver, not elsewhere classified (principal) | CPT/HCPCS: 76705 ==

== ENCOUNTER 2024-08-15 10:16 | Outpatient (AMB) | payer MEDICARE, SELFPAY ==
--- NOTE | 2024-08-15 08:21 | A.OFFVIS_ITS ---
Vital Signs 08/15/24 10:32 Height 5 ft 5 in Weight 191 lb 12.835 oz BMI 31.9 BP 120/74 Blood Pressure Location Rt brachial Position Sitting Pulse 85 Pulse Source Pulse Oximeter Intake Visit Reasons: DM/LVM Intake Note: Patient presents here today for a follow-up on Type 2 Diabetes Mellitus: Last Diabetic eye exam was on: DUE Last Podiatry exam was on: Does not see a Referral Rn Most recent HbA1c: >14.0%, 07/13/2024 Random Glucose- 205 mg/dL, Today Motor Electrician Required: No Accompanied by: Self / Same As Patient Allergies atorvastatin Allergy (Unknown, Verified 08/15/24 10:32) Unknown diclofenac Allergy (Unknown, Verified 08/15/24 10:32) Unknown hydromorphone Allergy (Unknown, Verified 08/15/24 10:32) Nausea and Vomiting NSAIDS (Non-Steroidal Anti-Inflamma Allergy (Unknown, Verified 08/15/24 10:32) Diarrhea HPI Comments Details: 74 YO female who is seen in f/u for T2DM. She was seen as a consult on 07/21/2024. She had broken her foot in January and was moving less which she believed triggered the rise in glucose. 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 She was seen at urgent care last week and her 2 hour postprandial blood sugar was 171. Today in the office she is 205 and reports she had just eaten breakfast prior to coming to the clinic. Her most recent A1c at the end of June was over 14% which was pre metformin. Initially diagnosed with T2DM diagnosed at age 70 pre diabetic for many years Was initially started on treatment with diet and exercise Current regimen: metformin ER 500 mg bid Reports feeling low sugars: none Most recent A1C >14.0 up from 6.8% Family history of T2DM in father, brother Has eyes checked yearly, last eye exam June 2024, [denies] retinopathy. Denies neuropathy, last foot exam today in the office does not see podiatry. Has nephropathy, on ANGELA. 07/12/24 microalbumin 62.0 eGFR 52 Has HLD, on statin. Last LDL 85 as measured on 07/12/2024. [Denies] CAD. very rare CP when she lies on her right side due to previous surgery, this is reproducable when she pushed on chest and upper arm. Some mild nexk pain Diet: no particular diet no excess sweets Weight: weight down 25 pounds Ate less secondary to decrease appetite, mucous and had diarrhea which is improving No prior diabetes education. [facility] screen Fibrosis-4 (Fib-4) Index for liver fibrosis (calculated on lab work done:07/12/24 ) 3.06 points Advanced fibrosis Metavir stage F3 to F4 Approximate Fibrosis stage Elin 2-3 *Use with caution in patients <35 or >65 years old, as the score has been shown to be less reliable in these patients. Prior Imaging none Action Plan: Patient with elevated liver enzymes and fib 4 index shows liver fibrosis although this tool maybe less reliable in patients over 65 years old. PCP alerted to +Fib 4 screen for liver fibrosis [facility] Medical History (Updated 07/21/24 @ 14:39 by IGOR Dorsey) Elevated LFTs Uncontrolled type 2 diabetes mellitus with hyperglycemia Ataxia Perennial allergic rhinitis Fracture of fifth metatarsal bone of right foot Mixed hyperlipidemia Essential hypertension Mild persistent asthma without complication Osteoarthritis Allergic rhinitis Diabetes HTN (hypertension) Surgical History Hx of tubal ligation History of appendectomy H/O shoulder replacement Family History Mother Stroke Father CKD (chronic kidney disease) Diabetes Sister Arthritis Social History Housing: House Patient Tobacco Use Status: Never used Tobacco e-Cigarette/Vaping Use: Never Used service: Yes Current occupational status: retired Cognitive needs: No Hearing needs: No Vision needs: No Physical Exam Vital Signs: Last Vital Signs Pulse 85 08/15/24 10:32 BP 120/74 08/15/24 10:32 BMI result Body Mass Index 31.9 Const General: cooperative, healthy appearing and comfortable Nutritional Appearance: overweight Orientation/consciousness: oriented to person, oriented to place and oriented to time Limitations: no limitations Resp Effort & Inspection: normal respiratory effort Cardio Jugular venous distension: no JVD Rate: regular rate Heart sounds: S1 normal heart sound present and S2 normal heart sound present Neuro General: oriented to person, oriented to place and oriented to time Extrem Other: no edema Assessment & Plan Assessment & Plan (1) Uncontrolled type 2 diabetes mellitus with hyperglycemia: Code(s): E11.65 - Type 2 diabetes mellitus with hyperglycemia Category: Medical Plan: 74-year-old with poorly controlled type 2 diabetes on metformin twice daily. Her most recent A1C was over 14% end of June. Insurance just approved glucometer with testing once daily and she was instructed on how to test by the medical intern. She will tests once daily with target glucose readings less than 130 in the morning and less than 180 2 hours postprandial. If she starts to run higher than this she will contact her office otherwise she will have an A1c done outpatient along with a repeat calcium/albumin as her level was 11.2. I recommended that she perhaps consider getting her blood work outside of the system as this may be a more accurate reflection of her calcium but she would like to repeat once at [facility] due to convenience. I will see her back at the end of September she will continue to follow up balanced diet and stay as active as she is able to Orders: Orders Calcium 5 Weeks E83.52 - Hypercalcemia Hemoglobin A1c 5 Weeks E83.52 - Hypercalcemia Albumin Level 5 Weeks E83.52 - Hypercalcemia Patient Instructions: The patient was counseled to achieve a target A1C of 7% (154 avg). Fasting blood sugars should be 90-130 in the morning and less than 180 two hours after meals. Reviewed the relationship between poor diabetic control and the development of complications. The patient was counseled to always carry a source of sugar and on the rule of 15's: Take 3 glucose tablets and repeat again in 15 minutes if blood sugar is not in normal range. Continue to repeat every 15 minutes until blood sugar is normal. Check your feet daily looking for any signs of infection, ulceration and seek medical attention if this occurs. Break in shoes gradually and do not wear open-toed shoes or walk barefooted. Coding Level of Care Code Est Pt Level 4 (45372) Complex EM visit Add On G2211 Diagnoses Uncontrolled type 2 diabetes mellitus with hyperglycemia E11.65 Time Spent (min) 30 Comment Time spent reviewing labs/provider notes, face to face, chart doc
[2024-08-15 10:32] VITALS: BP 120/74; PULSE 85; BMI 31.9
[2024-08-15 10:47] LABS: Glucose, Whole Blood 205 mg/dL (60-115)
== END 2024-08-15 11:01 | disposition home or self-care (01) ==
PROVIDERS: PCP Physician Assistant Medical; Visit Provider Nurse Practitioner Adult Health
DX: E11.65 Type 2 diabetes mellitus with hyperglycemia (principal)
CPT/HCPCS: 99214; G2211

== ENCOUNTER → 2024-08-15 10:16 | Outpatient (BNVA) | payer MEDICARE, SELFPAY | PROVIDERS: PCP Physician Assistant Medical; Visit Provider Nurse Practitioner Adult Health | DX: E11.65 Type 2 diabetes mellitus with hyperglycemia (principal); E83.52 Hypercalcemia | CPT/HCPCS: 82947; 99212 ==

== ENCOUNTER 2024-08-31 14:15 | Outpatient (AMB) | payer MEDICARE, SELFPAY ==
--- NOTE | 2024-08-31 14:17 | A.OFFPC_ITS ---
Vital Signs 08/31/24 14:22 Height 5 ft 5 in Weight 190 lb BMI 31.6 BP 148/78 H Blood Pressure Location Rt brachial Position Sitting Respiration 14 Pulse 86 Pulse Source Pulse Oximeter Pulse Oximetry (%) 98 Oxygen Delivery Method Room Air Intake Visit Reasons: 30 minutes for new diabetes/abnormal labs. Intake Note: follow up on diabetes and abnormal labs Cruise Agent Required: No Allergies atorvastatin Allergy (Unknown, Verified 08/31/24 14:18) Unknown diclofenac Allergy (Unknown, Verified 08/31/24 14:18) Unknown hydromorphone Allergy (Unknown, Verified 08/31/24 14:18) Nausea and Vomiting NSAIDS (Non-Steroidal Anti-Inflamma Allergy (Unknown, Verified 08/31/24 14:18) Diarrhea Tobacco use date assessed: 03/31/24 Fall risk assessment: 1 Fall in past year Last assessed Fall Risk: 08/31/24 Dental Screening Dental Screen Date: 03/31/24 HPI HPI Comments History of Present Illness Details This is a 74 year old female with a pmhx of controlled type 2 DM, HLD, HTN, asthma, OAB presenting for follow up. Type 2 diabetes-she was referred to endocrinology urgently after her A1c was over 14% on July 13. She had been having difficulty with saliva/postnasal drip secondary to using a maintenance inhaler for asthma that she since discontinued. It had caused significant nausea so she was drinking a lot of juice and having carbohydrates. She has since improved her diet, and she is taking metformin extended release 500 mg twice a day. Her liver enzymes were mildly elevated, and she is scheduled for abdominal ultrasound with elastography. Her calcium level was also elevated, and she is going to repeat this at the lab in September. She checks her blood sugar once a day. Sometimes she does this fasting and other x2 hours after eating. 100% of her glucose readings are within target range from 08/16/24 through 08/31/24. Reports eye exam is up-to-date. Asthma-she has not needed to use her rescue inhaler. She stopped her maintenance inhaler. She is taking Singulair 10 mg at bedtime. Patient says she is up-to-date with flu vaccine, COVID 19 booster, RSV and pneumonia vaccine. She received them at her pharmacy. History of ataxia-evaluation with Dr. Hastings. Put on vitamin b supplements with symptom improvement. HTN treated with Lisinopril. Her blood pressure is elevated today. She says usually it is very good. At a visit earlier this month it was 120/74. HLD treated with Rosuvastatin. ROS: Constitutional: No unexplained weight loss, fever, chills, fatigue or night sweats. Eyes: No vision changes, blurry vision, double vision Respiratory: No shortness of breath, cough or sputum production. Cardiovascular: No chest pain, chest pressure or chest discomfort. No palpitations or pedal edema. Gastrointestinal: No anorexia, nausea, vomiting or diarrhea. No abdominal pain o r blood in stool. Neurologic: No headache, dizziness, syncope, unilateral weakness, ataxia, numbness or tingling in the extremities. Endocrine: No cold or heat intolerance. No polyuria or polydipsia. Psychiatric: No depression or anxiety. Physical exam: Constitutional: Alert, in no distress Neck: Supple, Full range of motion. No lymphadenopathy. No palpable thyroid masses. Respiratory: Clear to auscultation. Cardiovascular: S1 S2 regular. No murmurs. Extremities: Warm and well perfused. No clubbing, cyanosis or edema. 3+ peripheral pulses bilaterally. Psychiatric: Normal mood and affect [facility] Medical History (Updated 07/21/24 @ 14:39 by IGOR Dorsey) Elevated LFTs Uncontrolled type 2 diabetes mellitus with hyperglycemia Ataxia Perennial allergic rhinitis Fracture of fifth metatarsal bone of right foot Mixed hyperlipidemia Essential hypertension Mild persistent asthma without complication Osteoarthritis Allergic rhinitis Diabetes HTN (hypertension) Surgical History Hx of tubal ligation History of appendectomy H/O shoulder replacement Family History Mother Stroke Father CKD (chronic kidney disease) Diabetes Sister Arthritis Social History Housing: House Patient Tobacco Use Status: Never used Tobacco e-Cigarette/Vaping Use: Never Used service: Yes Current occupational status: retired Cognitive needs: No Hearing needs: No Vision needs: No Questionnaire PHQ-9 Over the last 2 weeks, how often have you been bothered by any of the following problems? 1. Little interest or pleasure in doing things: not at all 2. Feeling down, depressed, or hopeless: not at all 3. Trouble falling or staying asleep, or sleeping too much: not at all 4. Feeling tired or having little energy: not at all 5. Poor appetite or overeating: not at all 6. Feeling bad about yourself - or that you are a failure or have let yourself or your family down: not at all 7. Trouble concentrating on things, such as reading the newspaper or watching television: not at all 8. Moving or speaking so slowly that other people could have noticed. Or the opposite - being so fidgety or restless that you have been moving around a lot more than usual: not at all 9. Thoughts that you would be better off or of hurting yourself in some way: not at all Total score: 0 33384 - PHQ-9 Billing: Yes Source: Developed by Drs. Jones Moy, Jessica Jasmine, Dustin Che and colleagues, with an educational vane from [employer]. Thrive Questionnaire Date Thrive assessed: 08/31/24 I am a: Patient What is your living situation today?: I have a steady place to live Within the past 12 months, did the food you bought not last and you didn't have the money to get more?: Never true Within the past 12 months, did you worry whether your food would run out before you got money to buy more?: Never true Do you have trouble paying for medicines?: No Do you have trouble getting transportation to medical appointments?: No Do you have trouble paying your heating and electricity bill?: No Do you have trouble taking care of your child, family member or friend?: No Do you have trouble with day-to-day activities such as bathing, preparing meals, shopping, managing finances, etc.?: No Are you currently unemployed and looking for a job?: No Are you interested in more education?: I choose not to answer this question Please select the resources that you would like help with: None Currently or been in a relationship where the following occur: No concerns reported THRIVE Score: 0 AUDIT C Alcohol Use Questionnaire (AUDIT-C) 1. How often do you have a drink containing alcohol?: Monthly or less Total Score: 1 ROEL-7 AMB Questionnaire ROEL-7 Date ROEL - 7 assessed: 08/31/24 Feeling nervous, anxious, or on edge: 0 = Not at all Not being able to stop or control worryin = Not at all Worrying too much about different things: 0 = Not at all Trouble relaxin = Not at all Being so restless that it is hard to sit still: 0 = Not at all Becoming easily annoyed or irritable: 0 = Not at all Feeling afraid as if something awful might happen: 0 = Not at all Total ROEL-7 score (0-4 normal; 5-9 mild; 10-14 moderate; 15-21 severe): 0 Source: Developed by Drs. Jones Moy, Jessica Jasmine, Dustin Che and colleagues, with an educational vane from [employer]. ROEL-7 Assessment Billing ROEL-7 Assessment Tool: ROEL-7 Assessment 85740 Physical exam (Primary Care) Tobacco/Smoking Status: Tobacco use Status Tobacco use date assessed 03/31/24 08/31/24 14:20 Patient Tobacco Use Status Never used Tobacco 08/31/24 14:20 e-Cigarette/Vaping Use Never Used 08/31/24 14:20 PHQ-9: PHQ-9 Score PHQ-9: Total score 0 08/31/24 14:20 Thrive Assessment: Date of Thrive Assessment Date Thrive assessed 08/31/24 08/31/24 14:20 Currently or been in a relationship where the following occur: No concerns reported Coding Level of Care Code Est Pt Level 4 (00948) Complex EM visit Add On G2211 Diagnoses Uncontrolled type 2 diabetes mellitus with hyperglycemia E11.65 Elevated LFTs R79.89 Mixed hyperlipidemia E78.2 Essential hypertension I10 Mild persistent asthma without complication J45.30 Additional Codes ROEL-7 Assessment Billing - ROEL-7 Assessment Tool: ROEL-7 Assessment 94201 ([id number]) PHQ-9 - 23592 - PHQ-9 Billing: Yes ([id number]) Assessment & Plan Assessment & Plan (1) Uncontrolled type 2 diabetes mellitus with hyperglycemia: Code(s): E11.65 - Type 2 diabetes mellitus with hyperglycemia Category: Medical Plan: Lifestyle modifications reviewed with the patient. She is followed by endocrinology. Continue metformin extended release 500 mg twice a day. She is having her A1c checked again in September. She is compliant with glucose monitoring. (2) Elevated LFTs: Code(s): R79.89 - Other specified abnormal findings of blood chemistry Category: Medical Plan: Patient will have LFTs rechecked in September. (3) Mixed hyperlipidemia: Code(s): E78.2 - Mixed hyperlipidemia Category: Medical Plan: Recommended Mediterranean diet. Avoid red meat and full fat dairy products. Continue rosuvastatin. (4) Essential hypertension: Code(s): I10 - Essential (primary) hypertension Category: Medical Plan: Suboptimal reading today. She will send blood pressure readings over the patient portal in a week or 2. Continue lisinopril. Recommended avoidance of sodium rich foods and caffeine. (5) Mild persistent asthma without complication: Code(s): J45.30 - Mild persistent asthma, uncomplicated Category: Medical Plan: Stable. Continue albuterol as needed and Singulair. Plan Follow up in December 2024 as planned. Orders: Orders Aspartate Amino Transferase Today R79.89 - Other specified abnormal findings of blood chemistry Alanine Aminotransferase Today R79.89 - Other specified abnormal findings of blood chemistry
[2024-08-31 14:22] VITALS: BP 148/78; PULSE 86; RESP 14; O2SAT 98; BMI 31.6
== END 2024-08-31 14:48 | disposition home or self-care (01) ==
PROVIDERS: PCP Physician Assistant Medical; Visit Provider Physician Assistant Medical
DX: E11.65 Type 2 diabetes mellitus with hyperglycemia (principal); R79.89 Other specified abnormal findings of blood chemistry; E78.2 Mixed hyperlipidemia; I10 Essential (primary) hypertension; J45.30 Mild persistent asthma, uncomplicated

== ENCOUNTER → 2024-08-31 14:15 | Outpatient (BNVA) | payer MEDICARE, SELFPAY | PROVIDERS: PCP Physician Assistant Medical; Visit Provider Physician Assistant Medical | DX: E11.65 Type 2 diabetes mellitus with hyperglycemia (principal); R79.89 Other specified abnormal findings of blood chemistry; J45.30 Mild persistent asthma, uncomplicated; I10 Essential (primary) hypertension; E78.5 Hyperlipidemia, unspecified; Z79.84 Long term (current) use of oral hypoglycemic drugs | CPT/HCPCS: 96127; 99212 ==

== ENCOUNTER 2024-09-19 10:58 | Outpatient (REF) | payer MEDICARE, SELFPAY ==
[2024-09-19 14:33] LABS: Estimated Average Glucose 186 mg/dL; Hemoglobin A1C 198.7455 umol/L; Hemoglobin A1c % 8.1 % (<6.0); Total Hemoglobin (HGBA1C) 3074.6145 umol/L
[2024-09-19 14:35] LABS: Alanine Aminotransferase 36 U/L (0-31); Albumin Level 4.5 g/dL (3.5-5.0); Aspartate Amino Transferase 49 U/L (5-31); Calcium 10.8 mg/dL (8.4-10.2)
== END 2024-09-19 10:59 | disposition home or self-care (01) ==
LOC: HO.WFDLDS 10:58
PROVIDERS: Referring Provider Nurse Practitioner Adult Health; Visit Provider Physician Assistant Medical
DX: R79.89 Other specified abnormal findings of blood chemistry (principal); E83.52 Hypercalcemia
CPT/HCPCS: 36415; 82040; 82310; 83036; 84450; 84460

== ENCOUNTER 2024-10-11 08:18 | Outpatient (AMB) | payer MEDICARE, SELFPAY ==
[2024-10-11 08:34] VITALS: BP 166/90; PULSE 94; BMI 31.4
--- NOTE | 2024-10-11 08:34 | MHC.OFFVIS ---
Vital Signs 10/11/24 08:34 Height 5 ft 5 in Weight 188 lb 11.451 oz BMI 31.4 BP 166/90 H Blood Pressure Location Rt brachial Position Sitting Pulse 94 Pulse Source Pulse Oximeter Intake Visit Reasons: DM Intake Note: Patient present today for Type 2 Diabetes Mellitus Last Diabetic eye exam: 06/2024 Last Podiatry Visit: Doens't have one Random Glucose: Patient refused mg/dl HgA1C: 8.1% 09/19/24 Patient Flow Coordinator Required: No Accompanied by: Self / Same As Patient Allergies atorvastatin Allergy (Unknown, Verified 10/11/24 08:43) Unknown diclofenac Allergy (Unknown, Verified 10/11/24 08:43) Unknown hydromorphone Allergy (Unknown, Verified 10/11/24 08:43) Nausea and Vomiting NSAIDS (Non-Steroidal Anti-Inflamma Allergy (Unknown, Verified 10/11/24 08:43) Diarrhea HPI Comments Details: 74 YO female who is seen in f/u for T2DM. She was seen as a consult on 07/21/2024 with f/u 08/15/24. She had broken her foot in January and was moving less which she believed triggered the rise in glucose. 205 and reports she had just eaten breakfast prior to coming to the clinic. Her most recent A1c 10/11/2024 8.1% which reflects approximately 7 weeks of increased metformin dosing. Previous A1c prior to metformin was over 14%. Initially diagnosed with T2DM diagnosed at age 70 pre diabetic for many years Was initially started on treatment with diet and exercise Current regimen: metformin ER 500 mg bid Reports feeling low sugars: none Glucometer readings checks once daily. Morning readings are either mid 80s to mid 120s. Every other day she tests later in the day and most readings are less than 114 with a 1 reading at 01:44 Family history of T2DM in father, brother Has eyes checked yearly, last eye exam June 2024, Denies retinopathy. Denies neuropathy, last foot exam today in the office does not see podiatry. No tingling, cramping, pain or cramping in the lower extremities. Has nephropathy, on ANGELA. 07/12/24 microalbumin 62.0 eGFR 52 Has HLD, on statin. Last LDL 85 as measured on 07/12/2024. [Denies] CAD.Prior h/o very rare CP when she lies on her right side due to previous surgery, this is reproducable when she pushed on chest and upper arm. Some mild neck pain Diet: Following a much more balanced diet. Breakfast: Muffin with no flower made with a oatmeal, apple sauce or banana. Lunch: salad with protein Supper: Balanced meal Weight: stable since visit in January No prior diabetes education. [facility] screen Fibrosis-4 (Fib-4) Index for liver fibrosis (calculated on lab work done:07/12/24 ) 3.06 points Advanced fibrosis Metavir stage F3 to F4 Approximate Fibrosis stage Elin 2-3 *Use with caution in patients <35 or >65 years old, as the score has been shown to be less reliable in these patients. Prior Imaging [place] [id number] Ultrasound Report Signed Patient: Eloisa Rivero MR#: [id number] : 1950 Acct:[id number] Age/Sex: 74 / F ADM Date: 08/08/24 Loc: HO.US Attending Dr: Reshma COSTA Ordering Physician: Reshma Vinson Date of Service: 08/08/24 Procedure(s): US abdomen vieira w elastography Accession Number(s): [id number] cc: Reshma Vinson~ EXAMINATION: US ABDOMEN LIMITED WITH LIVER ELASTOGRAPHY CLINICAL INFORMATION: Elevated LFTs. COMPARISON: None available. TECHNIQUE: Real-time imaging of the abdominal viscera. Noninvasive ultrasound liver fibrosis assessment is performed using Siemens shear wave elastography (pSWE) with a 5 MHz transducer. Multiple elastography samples are obtained. Exam submitted for review 10/05/2024 8:34 AM BUYER. FINDINGS: PANCREAS: The visualized pancreatic head and body are normal in appearance. The remainder of the pancreas is obscured from visualization by the overlying bowel gas. LIVER: The liver demonstrates normal size. There is diffusely increased and coarsened parenchymal echogenicity without suspicious focal lesion seen. There is mild lobulation of the surface contour. No intrahepatic biliary dilatation. The right lobe measures 11.5 cm in length. The left lobe measures 11.9 cm in length. There is normal hepatopedal portal flow. Shear wave elastography provides a median stiffness of 1.44 m/s (reference: normal median stiffness is 0.81 - 1.22 m/s). The IQR/median stiffness to assess sampling precision is 0.28 (reference: optimal IQR/median stiffness is under 0.3). GALLBLADDER: The gallbladder is physiologically distended without evidence of stones, sludge, polyps, wall thickening or pericholecystic fluid. COMMON BILE DUCT: Normal in caliber measuring 0.5 cm in diameter. RIGHT KIDNEY: No hydronephrosis. No renal calculi or focal parenchymal lesions. The kidney measures 11.8 cm in maximum dimension. FREE FLUID: None seen. US/US abdomen vieira w elastography IMPRESSION: 1. Diffusely increased hepatic echogenicity, likely combination of steatosis and underlying hepatocellular disease. Subtle microlobulation of the hepatic contour. No suspicious lesions seen. 2. Elastography: Liver elastography measurements are consistent with a minimal risk for clinically significant liver fibrosis (METAVIR Stage F0-F1). Action Plan: Patient with elevated liver enzymes and fib 4 index shows liver fibrosis although this tool maybe less reliable in patients over 65 years old. PCP alerted to +Fib 4 screen for liver fibrosis and liver elastography was ordered by pcp and referral placed to GI medicine. [facility] Medical History (Updated 10/06/24 @ 09:23 by IGOR Dorsey) Hepatic steatosis Serum calcium elevated Elevated LFTs Uncontrolled type 2 diabetes mellitus with hyperglycemia Ataxia Perennial allergic rhinitis Fracture of fifth metatarsal bone of right foot Mixed hyperlipidemia Essential hypertension Mild persistent asthma without complication Osteoarthritis Allergic rhinitis Diabetes HTN (hypertension) Surgical History Hx of tubal ligation History of appendectomy H/O shoulder replacement Family History Mother Stroke Father CKD (chronic kidney disease) Diabetes Sister Arthritis Social History Housing: House Patient Tobacco Use Status: Never used Tobacco e-Cigarette/Vaping Use: Never Used service: Yes Current occupational status: retired Cognitive needs: No Hearing needs: No Vision needs: No Physical Exam Const Other: Absence of Cushingoid features. Absence of acromegalic features. Neck exam reveals nl size thyroid about 15 gms. No thyroid nodules palpable. No carotid bruits present. Lungs CTA. Heart S1 S2, Reg R/R. No M/R G. Skin exam reveals absence of vitiligo or acanthosis nigricans. No edema Visual exam of foot performed. No ulcerations or open lesions. No inter digit maceration or fissuring. No onychomycosis, no callouses. Sensation intact to monofilament exam. Vibratory sensation is normal with 128 Hz tuning fork. Positive pulses. Good cap refill Assessment & Plan Assessment & Plan (1) Uncontrolled type 2 diabetes mellitus with hyperglycemia: Code(s): E11.65 - Type 2 diabetes mellitus with hyperglycemia Category: Medical Plan: 74-year-old type 2 diabetic with improving A1c of 8.1%. Her numbers over the past month reflect excellent control. She is interested in getting off medication and I advised her she could reduce metformin to 1 tablet daily but to closely follow her sugar. If she is not meeting her targets she should restart the 2nd tablet. She should continue to check her glucose readings alternating test times with a target of less than 130 in the morning less than [address]53 hours after meals. The patient was counseled to achieve a target A1C of 7% (154 avg). Fasting blood sugars should be 90-130 in the morning and less than 160-180 two hours after meals. Reviewed the relationship between poor diabetic control and the development of complications. The patient had an opportunity to ask questions regarding treatment plan. The patient expressed understanding and agreement with the above treatment plan. The patient is aware they should contact our office by phone for worsening glucose readings or for any low blood sugars which may warrant a change in diabetes medication. Compliance is encouraged with medications and any followup testing/consults which may have been ordered. She has referral for GI medicine. (2) Serum calcium elevated: Code(s): E83.52 - Hypercalcemia Category: Medical Plan: She has no prior history of elevated calcium. She has had 2 elevated readings at [facility]. She was given the lab orders by her PCP in instructed to take them to a [facility] as we have found that often times the calcium is elevated at [facility] and repeat when repeated is in normal range. She will have her blood work done sometime over the next month Coding Level of Care Code Est Pt Level 4 (28327) Complex EM visit Add On G2211 Diagnoses Uncontrolled type 2 diabetes mellitus with hyperglycemia E11.65 Serum calcium elevated E83.52 Time Spent (min) 30 Comment Time spent reviewing labs/provider notes, face to face, chart doc
== END 2024-10-11 09:10 | disposition home or self-care (01) ==
PROVIDERS: PCP Physician Assistant Medical; Visit Provider Nurse Practitioner Adult Health
DX: E11.65 Type 2 diabetes mellitus with hyperglycemia (principal); E83.52 Hypercalcemia
CPT/HCPCS: 99214; G2211

== ENCOUNTER → 2024-10-11 08:18 | Outpatient (BNVA) | payer MEDICARE, SELFPAY | PROVIDERS: PCP Physician Assistant Medical; Visit Provider Nurse Practitioner Adult Health | DX: E11.65 Type 2 diabetes mellitus with hyperglycemia (principal); E83.52 Hypercalcemia | CPT/HCPCS: 99212 ==

== ENCOUNTER 2024-11-10 10:28 | Outpatient (REF) | payer MEDICARE, SELFPAY ==
--- OUTSIDE RECORDS SUMMARY | 2024-11-10 11:58 | XMS_ITS | Data Portability ---
Author Organization [place] - [facility] Address [address] [place] [address] Assessment No assessment recorded. Plan of Treatment Reminders Order Date Submit Date Provider Last Modified By Organization Details Last Modified Time Details Appointments None recorded. Lab None recorded. Referral None recorded. Procedures None recorded. Surgeries None recorded. Imaging None recorded. Medication Orders Advair Diskus 250 mcg-50 mcg/dose powder for inhalation 2023 024 JAQUELINE [facility]armacy #[id number], [address] [place], [address], 4 13:28:23 prednisone 50 mg tablet 2023 024 [email or web address] [facility]armacy #[id number], [address] [place], [address], 4 17:02:25 Patient TargetsNo targets recorded. Patient InstructionsNo instructions recorded. Reason for Referral None Reported. Problems Name Problem SNOMED Code Status Onset Date Resolution Date Notes Provider Name and Address Organization Details Recorded Time Hypertensive disorder 61050648 Active Vidhyaanna kirkland, [place] - [facility] 4 13:07:32 Asthma 765939055 Active Vidhya Suresh null, [place] - [facility] 4 13:07:59 Cough 87379785 Active 2023 Rodriguez Matthews, [facility] [place], [address] , [place] - [facility] 4 13:27:38 Problem Notes None recorded. Procedures Surgical History Date Name Laterality Status Provider Name and Address Organization Details Recorded Time total shoulder replacement completed Vidhya Prince PA - [facility] 03/01/2024 13:09:35 appendectomy completed Vidhya Prince PA - [facility] 03/01/2024 13:09:53 Imaging Results None recorded. Procedure Notes None recorded. Medical Equipment None Reported. Allergies Allergen ID Allergen Name Allergen Category Reaction Reaction Severity Criticality Documentation Date Start Date Code Code System Note Provider Name and Address Organization Details Recorded Time 762673 diclofena c Not available dizziness Not available Not available 03/01/2024 3355 RxNorm Vidhya Prince isael PA - [facility] 4 13:05:44 Medications Name Sig Start Date Stop Date Status Note LastModified by Organization Details LastModified Time amoxicillin 500 mg capsule TAKE 1 CAPSULE BY MOUTH THREE TIMES A DAY 03/01 completed Not Available Not Available Not Available amoxicillin 500 mg tablet TAKE 1 TABLET BY MOUTH THREE TIMES A DAY FOR 7 DAYS 03/01 completed Not Available Not Available Not Available prednisone 50 mg tablet Take 1 tablet every day by oral route. 2023 active Not Available Not Available Not Avai lable montelukast 10 mg tablet TAKE 1 TABLET BY MOUTH EVERYDAY AT BEDTIME active Not Available Not Available No t Available albuterol sulfate HFA 90 mcg/actuati on aerosol inhaler INHALE 2 PUFFS INTO THE LUNGS EVERY 4 HOURS NEEDED FOR COUGH OR WHEEZING. active Not Available Not Available No t Available lisinopril 40 mg tablet TAKE 1 TABLET BY MOUTH EVERY DAY active Not Available Not Available No t Available rosuvastati n 5 mg tablet TAKE 1 TABLET BY MOUTH EVERY DAY active Not Available Not Available No t Available Fish Oil active Not Available Not Avai lable Not Available Vitamin D3 active Not Available Not Av ailable Not Available Zyrtec active Not Available Not Availa ble Not Available Multi Vitamin active Not Available Not Available Not Available Wixela Inhub 250 mcg-50 mcg/dose powder for inhalation INHALE 1 DOSE BY MOUTH TWICE DAILY. RINSE MOUTH AFTER USE active Not Available Not Available No t Available Vitals Date Recorded Body height Body mass index (BMI) Body weight Body temperature Oxygen saturation Oxygen saturation in Arterial blood by Pulse oximetry Respiratory rate Heart rate Pain severity - 0-10 verbal numeric rating [Score] - Reported Systolic blood pressure Diastolic blood pressure Provider Name and Address Organization Details Last Updated DateTime 4 165.1 cm 34.9 kg/m2 10880.4 g 97 [degF] 95 % 95 % 20 /min 81 /min 0 182 mm[Hg] 85 mm[Hg] Vidhya COSTA - [facility] 13:05:03 Social History Question Answer Notes LastModified by Organizat ion Details LastModified Time Tobacco Smoking Status Never Smoker Vidhya kirkland PA - [facility] 03/01/2024 13:08:57 What Is Your Level Of Alcohol Consumption? Occasional Information not available 03/01/2024 How Many Times Per Week Do You Consume Alcohol? Less Than 1 Time Per Week Information not available 03/01/2024 What Was The Date Of Your Most Recent Tobacco Screening? 03/01/2024 Information not available 03/01/2024 What Is Your Relationship Status? Information not available 03/01/2024 Do You Use Any Illicit Or Recreational Drugs? No Information not available 03/01/2024 Have You Recently Traveled Abroad? No Information not available 03/01/2024 Do You Or Have You Ever Used Any Other Forms Of Tobacco Or Nicotine? No Information not available 03/01/2024 Sex: Unknown Functional Status None recorded. Mental Status None recorded. Family History Relationship Description Onset Age of this Age Resolved Age Notes LastModified by Organization Details LastModified Time Father No current problems or disability Not available 03/01 13:07:41 Mother No current problems or disability Not available 03/01 13:07:41 Medical History No medical history recorded. Gynecological History Statement/Question Response Is there any chance of ? No Obstetrics History GPAL:G 0 P 0 0 0 0 Immunizations Vaccine Type Date Status Note Provider Nam e and Address Organization Details Recorded Time Influenza, adjuvanted, trivalent, PF 9 completed Vidhya kirkland PA - [facility] 03/01/2024 13:05:13 zoster recombinant 4 completed Vidhya kirkland PA - [facility] 03/01/2024 13:05:13 zoster recombinant 3 completed Vidhya Suresh null, PA - [facility] 03/01/2024 13:05:13 Influenza, high-dose, quadrivalent, PF 2 completed Vidhya Suresh null, PA - [facility] 03/01/2024 13:05:13 MMR 2 completed Vidhya Suresh null, PA - [facility] 03/01/2024 13:05:13 Influenza, adjuvanted, quadrivalent, PF 1 completed Vidhya Suresh null, PA - [facility] 03/01/2024 13:05:13 Influenza, adjuvanted, quadrivalent, PF 0 completed Vidhya Suresh null, PA - [facility] 03/01/2024 13:05:13 Influenza, adjuvanted, quadrivalent, PF 3 completed Vidhya Suresh null, PA - [facility] 03/01/2024 13:05:13 COVID-19, mRNA, LNP-S, PF, 100 mcg/0.5mL dose or 50 mcg/0.25mL dose 1 completed Vidhya Suresh null, PA - [facility] 03/01/2024 13:05:13 COVID-19, mRNA, LNP-S, PF, 100 mcg/0.5mL dose or 50 mcg/0.25mL dose 1 completed Vidhya Suresh null, PA - [facility] 03/01/2024 13:05:13 COVID-19, mRNA, LNP-S, PF, 100 mcg/0.5mL dose or 50 mcg/0.25mL dose 1 completed Vidhya Suresh null, PA - [facility] 03/01/2024 13:05:13 COVID-19, mRNA, LNP-S, PF, 30 mcg/0.3 mL dose 3 completed Vidhya Suresh null, PA - [facility] 03/01/2024 13:05:13 COVID-19, mRNA, LNP-S, bivalent, PF, 50 mcg/0.5 mL or 25mcg/0.25 mL dose 2 completed Vidhya Suresh null, PA - [facility] 03/01/2024 13:05:13 RSV, recombinant, protein subunit RSVpreF, adjuvant reconstituted, 0.5 mL, PF 3 completed Vidhya Suresh null, PA - [facility] 03/01/2024 13:05:13 COVID-19, mRNA, LNP-S, PF, zurdo-sucrose, 30 mcg/0.3 mL 4 completed Vidhya Suresh null, PA - [facility] 03/01/2024 13:05:14 COVID-19, mRNA, LNP-S, PF, zurdo-sucrose, 30 mcg/0.3 mL 3 completed Vidhya Suresh null, PA - [facility] 03/01/2024 13:05:14 pneumococcal polysaccharide PPV23 5 completed Vidhya Suresh null, PA - [facility] 03/01/2024 13:05:14 pneumococcal polysaccharide PPV23 6 completed Vidhya Suresh null, PA - [facility] 03/01/2024 13:05:14 Tdap 2 completed Vidhya Suresh null, PA - [facility] 03/01/2024 13:05:14 Pneumococcal conjugate PCV 13 6 completed Vidhya Suresh null, PA - [facility] 03/01/2024 13:05:14 Influenza, high-dose, trivalent, PF 8 completed Vidhya Suresh null, PA - [facility] 03/01/2024 13:05:14 Td (adult), 2 Lf tetanus toxoid, preservative free, adsorbed 2 completed Vidhya Suresh null, PA - [facility] 03/01/2024 13:05:14 Past Encounters Encounter ID Performer Location Encounter Start Date Encounter Closed Date Diagnosis/Indication Diagnosis SNOMED-CT Code Diagnosis ICD10 Code Diagnosis Note [id number] [address] [address] 08/12/2018 11:38:37 08/12/2018 12:24:36 [id number] Rodriguez Matthews [place] [address] [address] 03/01/2024 12:54:51 03/01/2024 13:30:24 Cough 41583017 R05.9 See pcp in 3-4 days. Go to ER if anything worsens. Otc tylenol as needed for pain. Symptomati c treatment. All of patients questions have been answered. Patient has understand ing and agreement of all of this. Health Concerns Section Related Observation LastModified by Organization Detai ls LastModified Time None Recorded Concern Status LastModified by Organization Details LastModified Time None Recorded Advance Directives Directive None Recorded Payers Encounter Date Sequence Insurance Name Policy Number Policy Segundo Covered Member ID Segundo Member ID Guarantor Name 08/12/2018 1 MEDICARE [place]: [facility] Eloisa Rivero [id number] 6 Eloisa Winchester 08/12/2018 2 [facility] [id number] Eloisa E [id number] Eloisa Ranulfo Rivero 03/01/2024 1 MEDICARE B-[place]: [facility] [employer] Eloisa Rivero [id number] 6 Eloisa Ranulfo Rivero 03/01/2024 2 [facility] [id number] Eloisanatacha Rivero [id number] Eloisa Rivero Notes Date Note Type Note Provider Name and Address Organization Details Recorded Time 03/01/2024 text/html Patient has had a cough for over a week+ hx of asthma. using albuterol puffer a few times a week. no sob. + wheeze. no vomitting or blood with cough. no fevers. no sick contact. + hx of seasonal allergies Rodriguez Matthews DO [address] [place], [address], [place] - [facility] 03/01/2024 17:02:40 OBGyn Episode No OBEpisode recorded.
[2024-11-10 16:23] LABS: Calcium 11.1 mg/dL (8.4-10.2)
[2024-11-13 08:47] LABS: HBS Num1 0.32 mIU/mL (0-7.99); HBc Num1 0.09 S/CO (0.00-0.79); HBsAGNum1 0.44 S/CO (0.00-0.99); Hepatitis B Core Antibody Nonreactive (Nonreactive); Hepatitis B Surface Antigen Negative (Negative); ~HepC Num1 0.12 S/CO (0.00-0.79); ~Hepatitis A Antibody IgM Nonreactive (Nonreactive); ~Hepatitis B Surface Antibody NONREACTIVE (Nonreactive); ~Hepatitis C Antibody Nonreactive (Nonreactive)
[2024-11-13 08:51] LABS: Hepatitis A Antibody IgM 0.15 Index (0-0.79); ~Hepatitis A Antibody IgM Nonreactive (Nonreactive)
== END 2024-11-10 10:29 | disposition home or self-care (01) ==
LOC: HO.WFDLDS 10:28
PROVIDERS: Visit Provider Physician Assistant Medical
DX: E34.9 Endocrine disorder, unspecified (principal); E83.52 Hypercalcemia; R79.89 Other specified abnormal findings of blood chemistry; K76.0 Fatty (change of) liver, not elsewhere classified
CPT/HCPCS: 36415; 82310; 83970; 86704; 86706; 86709; 86803; 87340

== ENCOUNTER 2024-12-18 10:50 | Outpatient (REF) | payer MEDICARE, SELFPAY ==
--- OUTSIDE RECORDS SUMMARY | 2024-12-18 12:55 | XMS_ITS | Data Portability ---
Author Organization [place] - [facility] Address [address] [place] [address] Assessment No assessment recorded. Plan of Treatment Reminders Order Date Submit Date Provider Last Modified By Organization Details Last Modified Time Details Appointments None recorded. Lab None recorded. Referral None recorded. Procedures None recorded. Surgeries None recorded. Imaging None recorded. Medication Orders Advair Diskus 250 mcg-50 mcg/dose powder for inhalation 2023 024 JAQUELINE [facility]armacy #[id number], [address] [place], [address], 4 13:28:23 prednisone 50 mg tablet 2023 024 [email or web address] [facility]arm[facility] #[id number], [address] [place], [address], 4 17:02:25 Patient TargetsNo targets recorded. Patient InstructionsNo instructions recorded. Reason for Referral None Reported. Problems Name Problem SNOMED Code Status Onset Date Resolution Date Notes Provider Name and Address Organization Details Recorded Time Hypertensive disorder 52075512 Active Vidhyaanna ikrkland, PA - [facility] 4 13:07:32 Asthma 139885471 Active Vidhya Suresh null, [place] - [facility] 4 13:07:59 Cough 67301752 Active 2023 Rodriguez Matthews, [facility] [place], [address] , [place] - [facility] 4 13:27:38 [...] Name and Address Organization Details Recorded Time 168545 diclofena c Not available dizziness Not available [...] Updated DateTime 4 165.1 cm 34.9 kg/m2 32554.4 g 97 [degF] 95 % 95 % [...] adjuvant reconstituted, 0.5 mL, PF 3 completed Vidhay Suresh null, PA - [facility] 03/01/2024 [...] SNOMED-CT Code Diagnosis ICD10 Code Diagnosis Note [id number] [address] [address] 08/12/2018 11:38:37 08/12/2018 12:24:36 [id number] Rodriguez Matthews [place] [address] [address] 03/01/2024 12:54:51 03/01/2024 13:30:24 Cough 24842795 R05.9 See pcp in 3-4 days. Go [...] Member ID Guarantor Name 08/12/2018 1 MEDICARE B-[place]: [facility] Eloisa Rivero [id number] Eloisa Winchester 08/12/2018 2 [facility] [id number] Eloisa E [id number] Eloisa Ranulfo Rivero 03/01/2024 1 MEDICARE B-[place]: [facility] [employer] SERVICES Eloisa Rivero [id number] 6 Eloisa Ranulfo Rivero 03/01/2024 2 [facility] [id number] Elosianatacha Rivero [id number] Eloisa Rivero Notes Date Note Type [...] Matthews DO [address] [place], [address], [place] - [facility] 03/01/2024 17:02:40 OBGyn Episode No OBEpisode recorded.
[2024-12-18 13:57] LABS: MANUAL DIFF FLAG NO
[2024-12-18 14:10] LABS: Basophils Percent Auto 0.6 % (0-2); Eosinophils Absolute Auto 0.5 X10*3/uL (0.0-0.4); Eosinophils Percent Auto 7.2 % (0-4); Hematocrit 36.8 % (37.0-47.0); Hemoglobin 12.2 g/dl (12.0-16.0); Imm Gran Abs Auto 0.02 X10*3/uL (0.00-0.03); Imm Gran Pct Auto 0.3 % (0.0-0.4); Lymphocytes Absolute Auto 2.5 X10*3/uL (1.2-4.9); Lymphocytes Percent Auto 38.6 % (20-40); Mean Corpuscular HGB Conc 33.2 g/dl (31.0-35.0); Mean Corpuscular Hemoglobin 31.1 pg (27.0-33.0); Mean Corpuscular Volume 93.9 fL (80.0-98.0); Mean Platelet Volume 10.1 fL (9.4-12.3); Monocytes Absolute Auto 0.5 X10*3/uL (0.1-1.2); Neutrophils Absolute Auto 2.9 x10*3/uL (2.0-8.3); Neutrophils Percent Auto 45.3 % (45-73); Platelet Count 270 X10*3/uL (160-400); Red Blood Count 3.92 X10*6/uL (4.20-5.50); Red Cell Distribution Width 13.2 % (11.0-16.0); White Blood Count 6.4 X10*3/uL (4.8-10.8)
[2024-12-18 14:18] LABS: Alanine Aminotransferase 31 U/L (0-31); Aspartate Amino Transferase 41 U/L (5-31)
[2024-12-18 14:20] LABS: Estimated Average Glucose 128 mg/dL; Hemoglobin A1C 140.9174 umol/L; Hemoglobin A1c % 6.1 % (<6.0); Total Hemoglobin (HGBA1C) 3231.8896 umol/L
[2024-12-22 19:19] LABS: VITAMIN D (1,25 OH) D3 46 pg/mL; Vit D (1,25-Dihydroxy) Total 46 pg/mL (18-72); Vitamin D (1,25 OH) D2 <8 pg/mL
== END 2024-12-18 10:51 | disposition home or self-care (01) ==
LOC: HO.WFDLDS 10:50
PROVIDERS: Visit Provider Physician Assistant Medical
DX: E34.9 Endocrine disorder, unspecified (principal); E83.52 Hypercalcemia; E11.9 Type 2 diabetes mellitus without complications; R79.89 Other specified abnormal findings of blood chemistry; K76.0 Fatty (change of) liver, not elsewhere classified
CPT/HCPCS: 36415; 82652; 83036; 84450; 84460; 85025

== ENCOUNTER 2025-01-08 10:23 | Outpatient (AMB) | payer MEDICARE, SELFPAY ==
--- NOTE | 2025-01-08 10:32 | A.OFFPC_ITS ---
Vital Signs 01/08/25 10:40 01/08/25 13:34 Height 5 ft 5 in Weight 184 lb 2 oz BMI 30.6 BP 130/88 128/82 Blood Pressure Location Lt brachial Position Sitting Respiration 14 Pulse 82 Pulse Source Pulse Oximeter Temp 98.4 F Temp Source Temporal Artery Scan Pulse Oximetry (%) 97 Oxygen Delivery Method Room Air Intake Visit Reasons: med review 30 minutes Intake Note: Eloisa presents in the office today for a medication review. Allergies diclofenac Allergy (Unknown, Verified 01/08/25 10:36) Unknown hydromorphone Allergy (Unknown, Verified 01/08/25 10:36) Nausea and Vomiting NSAIDS (Non-Steroidal Anti-Inflamma Allergy (Unknown, Verified 01/08/25 10:36) Diarrhea Tobacco use date assessed: 01/08/25 Fall risk assessment: No Falls in past year Last assessed Fall Risk: 01/08/25 Dental Screening Dental Screen Date: 01/08/25 Did you have a dental visit in the last 12 months?: No Did you have a dental problem in the last 6 months where you did not have access to dental care?: No Was dental information given to patient?: Patient declined HPI HPI Comments History of Present Illness Details This is a 74 year old female with a pmhx of controlled type 2 DM, HLD, HTN, asthma, OAB presenting for follow up. Type 2 diabetes-followed by endocrinology. Hemoglobin A1c 6.1%. She is checking blood sugars. She reports eye exam is up-to-date. She has hypercalcemia with mid range PTH, and she will see endocrinology on January 11 for this. Vitamin-D is normal. She would like a referral to general surgery for her umbilical hernia. No redness, pain, vomiting. Asthma-she has not needed to use her rescue inhaler. She is taking Singulair 10 mg at bedtime. Patient says she is up-to-date with flu vaccine, COVID 19 booster, RSV and pneumonia vaccine. She received them at her pharmacy. Elevated LFTs-negative hepatitis a, B and C. She had an ultrasound on 08/08/2024 which demonstrated hepatic steatosis and possible underlying hepatocellular disease with subtle micro lobulation of the hepatic contour. She has a an appointment with Gastroenterology on 01/17/2025. She denies abdominal pain, na usea, vomiting, diarrhea, unexplained weight loss or jaundice. History of ataxia-evaluation with Dr. Hastings. Put on vitamin b supplements. HTN treated with Lisinopril. HLD treated with Rosuvastatin. ROS: Constitutional: No unexplained weight loss, fever, chills, fatigue or night sweats. Eyes: No vision changes, blurry vision, double vision Respiratory: No shortness of breath, cough or sputum production. Cardiovascular: No chest pain, chest pressure or chest discomfort. No palpitations or pedal edema. Gastrointestinal: No anorexia, nausea, vomiting or diarrhea. No abdominal pain or blood in stool. Neurologic: No headache, dizziness, syncope, unilateral weakness, ataxia, numbness or tingling in the extremities. Endocrine: No cold or heat intolerance. No polyuria or polydipsia. Psychiatric: No depression or anxiety. Physical exam: Constitutional: Alert, in no distress Neck: Supple, Full range of motion. No lymphadenopathy. No palpable thyroid masses. Respiratory: Clear to auscultation. Cardiovascular: S1 S2 regular. No murmurs. Extremities: Warm and well perfused. No clubbing, cyanosis or edema. Abdomen: Moderately sized nontender umbilical hernia. No erythema. Psychiatric: Normal mood and affect [facility] Medical History (Updated 01/08/25 @ 13:32 by IGOR Dorsey) Controlled type 2 diabetes mellitus Umbilical hernia Hepatic steatosis Serum calcium elevated Elevated LFTs Uncontrolled type 2 diabetes mellitus with hyperglycemia Ataxia Perennial allergic rhinitis Fracture of fifth metatarsal bone of right foot Mixed hyperlipidemia Essential hypertension Mild persistent asthma without complication Osteoarthritis Allergic rhinitis Diabetes HTN (hypertension) Surgical History Hx of tubal ligation History of appendectomy H/O shoulder replacement Family History Mother Stroke Father CKD (chronic kidney disease) Diabetes Sister Arthritis Social History (Updated 01/08/25 @ 10:38 by Shanice Jones MA) Housing: House Alcohol intake: never Patient Tobacco Use Status: Never used Tobacco e-Cigarette/Vaping Use: Never Used service: Yes Current occupational status: retired Cognitive needs: No Hearing needs: No Vision needs: No Questionnaire PHQ-9 Over the last 2 weeks, how often have you been bothered by any of the following problems? 1. Little interest or pleasure in doing things: not at all 2. Feeling down, depressed, or hopeless: not at all 3. Trouble falling or staying asleep, or sleeping too much: not at all 4. Feeling tired or having little energy: not at all 5. Poor appetite or overeating: not at all 6. Feeling bad about yourself - or that you are a failure or have let yourself or your family down: not at all 7. Trouble concentrating on things, such as reading the newspaper or watching television: not at all 8. Moving or speaking so slowly that other people could have noticed. Or the opposite - being so fidgety or restless that you have been moving around a lot more than usual: not at all 9. Thoughts that you would be better off or of hurting yourself in some way: not at all Total score: 0 Depression Screening Interpretation: Negative Depression Screening Done: Yes 66599 - PHQ-9 Billing: Patient declined-do not bill Source: Developed by Drs. Jones Moy, Jessica Jasmine, Dustin Che and colleagues, with an educational vane from [employer]. Thrive Questionnaire Date Thrive assessed: 01/08/25 I am a: Patient What is your living situation today?: I have a steady place to live Within the past 12 months, did the food you bought not last and you didn't have the money to get more?: Never true Within the past 12 months, did you worry whether your food would run out before you got money to buy more?: Never true Do you have trouble paying for medicines?: No Do you have trouble getting transportation to medical appointments?: No Do you have trouble paying your heating and electricity bill?: No Do you have trouble taking care of your child, family member or friend?: No Do you have trouble with day-to-day activities such as bathing, preparing meals, shopping, managing finances, etc.?: No Are you currently unemployed and looking for a job?: No Are you interested in more education?: No Please select the resources that you would like help with: None Currently or been in a relationship where the following occur: No concerns reported THRIVE Score: 0 AUDIT C Alcohol Use Questionnaire (AUDIT-C) 1. How often do you have a drink containing alcohol?: Monthly or less 2. How many drinks containing alcohol do you have on a typical day when you are drinking?: 1 or 2 3. How often do you have six or more drinks on one occasion?: Never Total Score: 1 ROEL-7 AMB Questionnaire ROEL-7 Date ROEL - 7 assessed: 01/08/25 Feeling nervous, anxious, or on edge: 0 = Not at all Not being able to stop or control worryin = Not at all Worrying too much about different things: 0 = Not at all Trouble relaxin = Not at all Being so restless that it is hard to sit still: 0 = Not at all Becoming easily annoyed or irritable: 0 = Not at all Feeling afraid as if something awful might happen: 0 = Not at all Total ROEL-7 score (0-4 normal; 5-9 mild; 10-14 moderate; 15-21 severe): 0 Source: Developed by Drs. Jones Moy, Jessica Jasmine, Dustin Che and colleagues, with an educational vane from [employer]. ROEL-7 Assessment Billing ROEL-7 Assessment Tool: ROEL-7 Assessment 82236 ACT Questionnaire In the past 4 weeks, how much of the time did your asthma keep you from getting as much done at work, school or at home?: None of the time During the past 4 weeks, how often have you had shortness of breath?: Not at all During the past 4 weeks, how often did your asthma symptoms wake you up at night or earlier than usual in the morning?: Not at all During the past 4 weeks, how often have you had to use your rescue inhaler or nebulizer medication?: Not at all How would you rate your asthma control during the past 4 weeks?: Completely controlled ACT Interpretation: Negative Score: 25 Physical exam (Primary Care) Vital Signs: Last Vital Signs Temp 98.4 F 01/08/25 10:40 Pulse 82 01/08/25 10:40 Resp 14 01/08/25 10:40 BP 130/88 01/08/25 10:40 Pulse Ox 97 01/08/25 10:40 Oxygen Delivery Method Room Air 01/08/25 10:40 BMI result Body Mass Index 30.6 Tobacco/Smoking Status: Tobacco use Status Tobacco use date assessed 01/08/25 01/08/25 10:39 Patient Tobacco Use Status Never used Tobacco 01/08/25 10:38 e-Cigarette/Vaping Use Never Used 01/08/25 10:38 PHQ-9: PHQ-9 Score PHQ-9: Total score 0 01/08/25 11:14 Depression Screening Interpretation: Negative Thrive Assessment: Date of Thrive Assessment Date Thrive assessed 01/08/25 01/08/25 10:43 Currently or been in a relationship where the following occur: No concerns reported Coding Level of Care Code Est Pt Level 4 (90755) Complex EM visit Add On G2211 Diagnoses Mixed hyperlipidemia E78.2 Essential hypertension I10 Mild persistent asthma without complication J45.30 Hepatic steatosis K76.0 Serum calcium elevated E83.52 Controlled type 2 diabetes mellitus E11.9 Umbilical hernia K42.9 Additional Codes Asthma Control Questionnaire - ACT Interpretation: Negative ([id number]) ROEL-7 Assessment Billing - ROEL-7 Assessment Tool: ROEL-7 Assessment 21401 ([id number]) Assessment & Plan Assessment & Plan (1) Mixed hyperlipidemia: Code(s): E78.2 - Mixed hyperlipidemia Category: Medical Plan: Recommended Mediterranean diet. Avoid red meat and full fat dairy products. Continue rosuvastatin. (2) Essential hypertension: Code(s): I10 - Essential (primary) hypertension Category: Medical Plan: Continue lisinopril. Recommended avoidance of sodium rich foods and caffeine. (3) Mild persistent asthma without complication: Code(s): J45.30 - Mild persistent asthma, uncomplicated Category: Medical Plan: Stable. Continue albuterol as needed and Singulair. (4) Hepatic steatosis: Code(s): K76.0 - Fatty (change of) liver, not elsewhere classified Category: Medical Plan: Patient is going to review ultrasound results with Gastroenterology at the upcoming appointment. LFTs trended down. Recommended avoidance of alcohol. (5) Serum calcium elevated: Code(s): E83.52 - Hypercalcemia Category: Medical Plan: She has an upcoming appointment with endocrinology. Remain off calcium and vitamin-D supplement. (6) Controlled type 2 diabetes mellitus: Code(s): E11.9 - Type 2 diabetes mellitus without complications Category: Medical Plan: Continue current regimen. She has follow up with endocrinology in March. Lifestyle modifications reviewed. (7) Umbilical hernia: Code(s): K42.9 - Umbilical hernia without obstruction or gangrene Category: Medical Plan: She wishes to discuss elective repair. Refer to general surgery. Plan Follow up in 6 months. Orders: Orders Hemoglobin A1c 03/19/25 E11.9 - Type 2 diabetes mellitus without complications Vitamin B12 03/19/25 Z91.89 - Other specified personal risk factors, not else where classified Referrals General Surgery Referral K42.9 - Umbilical hernia without obstruction or gangrene
[2025-01-08 10:40] VITALS: BP 130/88; PULSE 82; RESP 14; TEMP 36.9; O2SAT 97; BMI 30.6
--- OUTSIDE RECORDS SUMMARY | 2025-01-08 12:10 | XMS_ITS | Data Portability ---
Author Organization [place] - [facility] Address [address] [place] [address] Assessment No assessment recorded. Plan of Treatment Reminders Order Date Submit Date Provider Last Modified By Organization Details Last Modified Time Details Appointments None recorded. Lab None recorded. Referral None recorded. Procedures None recorded. Surgeries None recorded. Imaging None recorded. Medication Orders Advair Diskus 250 mcg-50 mcg/dose powder for inhalation [address] [facility][id number], [address] [place], [address], 4 13:28:23 prednisone 50 mg tablet [email or web address] [facility][id number], [address] [place], [address], 4 17:02:25 Patient TargetsNo targets recorded. Patient InstructionsNo instructions recorded. Reason for Referral None Reported. Problems Name Problem SNOMED Code Status Onset Date Resolution Date Notes Provider Name and Address Organization Details Recorded Time Hypertensive disorder 68836686 Active Vidhyaanna kirkland, [place] - [facility] 4 13:07:32 Asthma 775061012 Active Vidhya Suresh null, [place] - [facility] 4 13:07:59 Cough 66692553 Active 2023 Rodriguez Matthews, [facility] [place], [address] , [place] - [facility] 4 13:27:38 [...] Name and Address Organization Details Recorded Time 214104 diclofena c Not available dizziness Not available [...] Updated DateTime 4 165.1 cm 34.9 kg/m2 30458.4 g 97 [degF] 95 % 95 % [...] SNOMED-CT Code Diagnosis ICD10 Code Diagnosis Note [id number] [address] [address] 08/12/2018 11:38:37 08/12/2018 12:24:36 [id number] Rodriguez Matthews DO [address] [address] 03/01/2024 12:54:51 03/01/2024 13:30:24 Cough [id number] R05.9 See pcp in 3-4 days. Go [...] Member ID Guarantor Name 08/12/2018 1 MEDICARE B-PR: [facility] Eloisa Rivero [id number] Eloisa [place] 08/12/2018 2 [facility] (MEDICARE SUPPLEMENT) [id number] Eloisa E [id number] Eloisa Ranulfo Rivero 03/01/2024 1 MEDICARE B-PR: [facility] Eloisa Rivero [id number] 6 Eloisa Ranulfo Rivero 03/01/2024 2 [facility] (MEDICARE SUPPLEMENT) [id number] Eloisanatacha Rivero [id number] 13 Eloisa Rivero Notes Date Note Type [...] Matthews DO [address] [place], [address], [place] - [facility] 03/01/2024 17:02:40 OBGyn Episode No OBEpisode recorded.
[2025-01-08 13:34] VITALS: BP 128/82
== END 2025-01-08 11:19 | disposition home or self-care (01) ==
LOC: HO.HMCFM 10:24
PROVIDERS: PCP Physician Assistant Medical; Visit Provider Physician Assistant Medical
DX: E11.9 Type 2 diabetes mellitus without complications (principal); E78.2 Mixed hyperlipidemia; I10 Essential (primary) hypertension; J45.30 Mild persistent asthma, uncomplicated; K76.0 Fatty (change of) liver, not elsewhere classified; E83.52 Hypercalcemia; K42.9 Umbilical hernia without obstruction or gangrene

== ENCOUNTER → 2025-01-08 10:23 | Outpatient (BNVA) | payer MEDICARE, SELFPAY | PROVIDERS: PCP Physician Assistant Medical; Visit Provider Physician Assistant Medical | DX: E11.9 Type 2 diabetes mellitus without complications (principal); E78.5 Hyperlipidemia, unspecified; E78.2 Mixed hyperlipidemia; E83.52 Hypercalcemia; I10 Essential (primary) hypertension; J45.30 Mild persistent asthma, uncomplicated; K76.0 Fatty (change of) liver, not elsewhere classified; K42.9 Umbilical hernia without obstruction or gangrene; Z91.89 Other specified personal risk factors, not elsewhere classified | CPT/HCPCS: 96127; 96160; 99212 ==

== ENCOUNTER 2025-01-11 07:49 | Outpatient (AMB) | payer MEDICARE, SELFPAY ==
[2025-01-11 07:50] VITALS: BP 150/68; PULSE 73; O2SAT 97; BMI 31.4
--- NOTE | 2025-01-11 07:50 | A.OFFVIS_ITS ---
Vital Signs 3 01/11/25 07:50 Height 5 ft 5 in Weight 188 lb 14.978 oz BMI 31.4 BP 150/68 H Blood Pressure Location Lt brachial Position Sitting Pulse 73 Pulse Source Pulse Oximeter Pulse Oximetry (%) 97 Oxygen Delivery Method Room Air Intake Visit Reasons: Hypercalcemia Intake Note: New patient present today for Hypercalcemia office visit. 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 cetirizine (Zyrtec) 10 mg PO DAILY PRN lancets (FreeStyle Lancets) Use to monitor blood glucose one time daily lisinopril 40 mg PO DAILY metformin ER 500 mg PO BID montelukast (Singulair) 10 mg PO BEDTIME multivitamin 1 tab PO DAILY omega-3 fatty acids 1,250 mg PO DAILY rosuvastatin 5 mg PO DAILY vitamin B complex-folic acid 50 mcg tabs PO Is last menstrual period known: Yes HPI Comments Details: 74-year-old female here today for initial evaluation of hypercalcemia. Otherwise medical history HTN, DM type 2, HLD . Chart reviewed on and shows calcium level has been ranging between 10.8-11.2, with most recent levels from October 2024 with a calcium of 11.1, albumin of 4.5, corrected calcium would be 10.6. PTH from 11/10/2024 non suppressed at 57. No vitamin-D level. Kidney function from June 2024 with EGFR of 52, creatinine 1.03. CKD stage 3 likley from HTN. 1,25 dihydroxy vitamin-D level from December 2024 normal. Bone density 05/26/2024: Normal bone density with T-score 2.2 at the spine, 0.4 at the total hip, 0.5 at the femoral neck and-0 point with a 1/3 forearm. No constipation, no abd pain, no muscle pains, has joint pain due to arthritis, denies memory issues or brain fog, no polyuria Fracture: 5th metatarsal, February 03, tripped on two steps, no other fractures. Kidney stones : in her 50s, passed a kidney stone, none recently. Milk: a mug daily, cheese most days, yogurt 4-5 times a day No family history of kidney problems or kidney stones supplements: b12, fish oil, multivitamin with calcium for over a year now switched multivitamin to something without calcium, was taking D3 with calcium for about 1-2 years, doesnt remember the dose now stopped Aug 2024. 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 Physical exam General: sitting comfortably in no acute distress HEENT: normocephalic/atraumatic, Neck: supple Cardiac: normal heart sounds Pulm: normal breath sounds B/L, no added breath sounds Abd: not distended, no tenderness Extremities: no edema, no signs of myxedema Neuro: AAO x3, Speech: normal, no facial droop, moving all 4 extremities Laboratory Tests 07/13/24 09/19/24 11/10/24 12:48 10:59 10:33 Creatinine 1.03 Estimated GFR 52 Calcium 11.2 H 10.8 H 11.1 H Albumin 4.1 4.5 1,25 Dihydroxy Vit D 1,25 Dihydroxy Vit D2 1,25 Dihydroxy Vit D3 PTH Intact 57.0 12/18/24 10:52 Creatinine Estimated GFR Calcium Albumin 1,25 Dihydroxy Vit D 46 1,25 Dihydroxy Vit D2 <8 1,25 Dihydroxy Vit D3 46 PTH Intact [facility] Medical History (Updated 01/08/25 @ 13:32 by IGOR Dorsey) Controlled type 2 diabetes mellitus Umbilical hernia Hepatic steatosis Serum calcium elevated Elevated LFTs Uncontrolled type 2 diabetes mellitus with hyperglycemia Ataxia Perennial allergic rhinitis Fracture of fifth metatarsal bone of right foot Mixed hyperlipidemia Essential hypertension Mild persistent asthma without complication Osteoarthritis Allergic rhinitis Diabetes HTN (hypertension) Surgical History Hx of tubal ligation History of appendectomy H/O shoulder replacement Family History Mother Stroke Father CKD (chronic kidney disease) Diabetes Sister Arthritis Social History Housing: House Alcohol intake: never Patient Tobacco Use Status: Never used Tobacco e-Cigarette/Vaping Use: Never Used service: Yes Current occupational status: retired Cognitive needs: No Hearing needs: No Vision needs: No Physical Exam Vital Signs: Last Vital Signs Pulse 73 01/11/25 07:50 BP 150/68 H 01/11/25 07:50 Pulse Ox 97 01/11/25 07:50 Oxygen Delivery Method Room Air 01/11/25 07:50 BMI result Body Mass Index 31.4 Assessment & Plan Assessment & Plan (1) Serum calcium elevated: Code(s): E83.52 - Hypercalcemia Category: Medical Plan: 74-year-old female coming in today for initial evaluation of hypercalcemia. Chart reviewed on and shows calcium level has been ranging between 10.8-11.2, with most recent levels from October 2024 with a calcium of 11.1, albumin of 4.5, corrected calcium would be 10.6. PTH from 11/10/2024 non suppressed at 57. No vitamin-D level. Kidney function from June 2024 with EGFR of 52, creatinine 1.03. CKD stage 3 likley from HTN. 1,25 dihydroxy vitamin-D level from December 2024 normal. Given PTH is inappropriately normal, most likely differential is primary hyperparathyroidism, or fHH. Though given age of presentation, unlikely FHH. We will be checking a 24 hour urine calcium level for further clarification. Given PTH is not suppressed, unlikely to be non PTH mediated hypercalcemia, usually in patients with hypercalcemia of malignancy, PTH is suppressed and calcium levels are much higher. She is also relatively healthy, has lost 35 lb with diet measures to control her diabetes but otherwise doing well. We will check serum immunofixation and electrophoresis studies to rule out MGUS/multiple myeloma. Again though in those cases PTH is usually suppressed. Granulomatous diseases which involve elevated 125 dihydroxy vitamin-D level, given her 125 dihydroxy vitamin-D level is normal, this is also not a differential. No long periods of immobilization. Does not seem like she was taking a lot of vitamin-D in excess or calcium supplementation. She was on some amount of supplementation which she stopped in August 2024. We will check vitamin-D levels. TSH is normal from June 2024. Normal alkaline phosphatase. Given that this is most likely due to primary hyperparathyroidism, we will also plan to evaluate for surgical criteria. She has greater than 50 years old. She has a history of kidney stones in the past when she was in her 50s, no recent episodes. No recent kidney imaging in the system. We will obtain kidney ultrasound. Bone density was normal from May 2024. The kidney function is likely low in the setting of long-term hypertension. We will check 24 hour urine calcium levels. Her calcium levels have been on the higher side at 11.1-11.2, which could make her surgical candidate. However I have asked her to maintain good hydration as well to keep those down. Plan: -ordered blood work and 24 hour urine levels -ordered ultrasound of the kidneys -follow up in 5 weeks to discuss results Plan I spent 45 minutes in reviewing the record, seeing the patient and documenting in the medical record. Orders: Orders 2 Phosphorus Today E83.52 - Hypercalcemia Protein Electrophoresis, Serum Today E83.52 - Hypercalcemia Creatinine, 24 Hr Group Today E83.52 - Hypercalcemia Immunofixation Pnl, Serum Today E83.52 - Hypercalcemia Sodium, 24Hr Urine Group Today E83.52 - Hypercalcemia Albumin Level Today E83.52 - Hypercalcemia Calcium Today E83.52 - Hypercalcemia Calcium, Ionized Today E83.52 - Hypercalcemia Vitamin D 25-OH Total Today E83.52 - Hypercalcemia Parathyroid Hormone Intact Today E83.52 - Hypercalcemia Calcium, 24 Hr Ur Today E83.52 - Hypercalcemia Magnesium Today E83.52 - Hypercalcemia Creatinine Today E83.52 - Hypercalcemia US renal BI Today E83.52 - Hypercalcemia Patient Instructions: Do 24 hr urine collection and same day as you had in the urine, give blood 24 hr urine collection instructions You have been asked to collect your urine for 24 hours to assess for calcium excretion. You must choose a 24 hour period of time when you will be home. The morning of the first day, DISCARD the FIRST morning void and then note the time. You will collect every single void from then on for 24 hours. For example, if you wake up at 6am and urinate, flush down that void. You will then collect every drop of urine all day and all night through 6am the following day. You will urinate one last time at 6am for the collection. The jug of urine must be kept in the refrigerator until you bring it to the lab. Do ultrasound of her kidneys, someone we will call you to schedule this -follow up in 5 weeks to discuss results Coding Level of Care Code New Pt Level 4 (90682) Diagnoses Serum calcium elevated E83.52 Time Spent (min) 45
--- OUTSIDE RECORDS SUMMARY | 2025-01-11 07:53 | XMS_ITS | Clinical Summary ---
Author Organization [facility] Address [address] [place] [address] Care Team Providers Care Tube Carrier Name Role Phone Community, Pcp Primary Care Provider Unavailabl e Allergies Active Allergy Reactions Severity Noted Date Comments Atorvastatin 07/06/2019 Diclofenac Sodium 07/06/2019 Hydromorphone Nausea and Vomiting 07/27/2019 dizzy Hydromorphone Hcl 09/23/2022 Nsaids Diarrhea,Gastritis 04/25/2019 Other (No Interaction Warnings) Runny Nose/Rhinitis 04/25/2019 Animal dander house dust Seasonal Allergies SOB, Wheezing,Runny Nose/Rhinitis 04/25/2019 Medications Medication Sig Dispensed Refills Start Date End Date Status B Complex Vitamins (B COMPLEX 50 OR) Take by mouth daily. 0 Active cetirizine (ZYRTEC) 10 MG tablet Take 10 mg by mouth daily. 0 Active Cholecalciferol (D-3-5 OR) Take by mouth. 0 Active Multiple Vitamins-Minerals (Multivitamin Adult, Minerals,) Tab Take 1 tablet by mouth daily. 0 Active [place]-3 Fatty Acids (Fish Oil) 1200 MG Cap Take 1 capsule by mouth daily. 0 Active Turmeric 500 MG Cap Take by mouth. 0 A ctive montelukast (SINGULAIR) 10 MG tablet TAKE 1 TABLET BY MOUTH EVERYDAY AT BEDTIME 90 Tablet 1 10/28/2023 Active ALBUTEROL SULFATE 108 (90 Base) MCG/ACT Aero Soln Inhale 2 Puffs into the lungs every 4 hours as needed for Cough or Wheezing. 18 g 1 01/07/2024 Active lisinopril (PRINIVIL,ZESTRIL) 40 MG tablet Take 1 Tablet by mouth daily. 90 Tablet 1 03/17/2024 Active rosuvastatin (CRESTOR) 5 MG tablet TAKE 1 TABLET BY MOUTH EVERY DAY 90 Tablet 0 06/07/2024 Active Active Problems Problem Noted Date H/O shoulder replacement 07/06/2019 Overview: 05/2018 Right Cerebellar ataxia 07/06/2019 Overview: Dr Hastings- yearly, EMG 2006 Nrml, MRI 2006 Non specific findings Asthma 04/25/2019 Hypertension 04/25/2019 Hypertriglyceridemia 04/25/2019 Diabetes mellitus type 2, uncomplicated 04/25/2019 Allergic rhinitis 04/25/2019 Osteoarthritis 04/25/2019 Overview: Cervical Spine, Hands/thumbs/right shoulder/knees Hypercalcemia 04/25/2019 Overview: She notes she was told this a long time ago, unclear details Severe obesity with body mas s index (BMI) of 36.0 to 36.9 with serious comorbidity 04/25/2019 Encounters Date Type Specialty Care Team Description 11/13/2024 Refill Urgent Care Nakia Byrne PA-C E-prescribe Rx Request from Last 3 Months Immunizations Name Administration Dates Next Due COVID-19 (Moderna) 08/22/2021,12/07/2020, 021 COVID-19 (Moderna) PT Reported 08/22/2021,2020,11/09/2020 COVID-19 (Pfizer) 08/02/2023,08/02/2023,08/02/20 23 Covid-19 Bivalent (Moderna) 06/29/2022 Flu Vaccine 3 Yrs> Im 08/21/2023 Influenza (> 6 Months) 06/25/2019 Influenza Flu (PT Reported) 08/21/2023 Influenza vaccine high dose age 65 and over 06/26/2022,06/13/2021,06/26/2020,06/25 MMR (Bwsmrio-Vfndx-Iszttts) 08/17/2022 Pneumoccoccal(Adult) Polysac charide PPSV23 06/15/2016,12/31/2014 Pneumococcal Conjugate PCV-13 06/15/2016 RSV 08/02/2023 Shingrix (Patient reported) 08/21/2023, TD (STATE SUPPLIED FOR ADULT S AND CHILDREN) 08/17/2022 Td, Adsorbed, Preservative F ree, Adult Use, Lf Unspecified 08/17/2022 Tdap 08/17/2022 Zostavax 08/21/2023 Family History Medical History Relation Name Comments snow mobile accident 2000, paralyzed Brother food allergies Daughter 1 CKD on HD Father diabetes, hear t issues , [place]? Stroke Mother Arthritis Sister Relation Name Status Comments Brother Daughter 1 Alive Daughter 2 Alive Daughter 3 Alive Father Mother Sister Son Alive Social History Tobacco Use Types Packs/Day Years Used Date Smoking Tobacco: Never Smokeless Tobacco: Never Tobacco Cessation:Counseling Given: Not Answered Alcohol Use Standard Drinks/Week Comments Yes 0 (1 standard drink = 0.6 oz pur e alcohol) rare Sex Assigned at Date Recorded Female 02/20/2021 7:31 AM E DT Job Start Date Occupation Industry Not on file Not on file Not on file Last Filed Vital Signs Vital Sign Reading Time Taken Comments Blood Pressure 162/89 01/03/2024 9:07 AM EDT Pulse 88 01/03/2024 9:07 AM EDT Temperature 36.9 ??C (98.5 ??F) 03/05/2023 11:20 AM E DT Respiratory Rate 14 01/03/2024 9:07 AM EDT Oxygen Saturation - - Inhaled Oxygen Concentration - - Weight 98.4 kg (217 lb) 01/03/2024 9:07 AM EDT Height 165.1 cm (5' 5 ) 09/08/2023 10:50 AM EST Body Mass Index 36.11 09/08/2023 10:50 AM EST Plan of Treatment Health Maintenance Due Date Last Done Comments DIABETES: ANNUAL FOOT EXAM 01/27/1968 COLON CANCER SCREENING 01/27/2000 BONE DENSITY SCREENING 2015 MAMMOGRAM 05/30/2020 05/30/2019 (Exte rnal Completion) DEPRESSION SCREEN 09/23/2023 09/23/2022, 05/26/2021 FALL RISK ASSESSMENT 09/23/2023 09/23/2022, 09/04/2022, 08/01/2020, Additional history exists SHINGLES VACCINE (3 of 3) 10/16/20232022, 08/21/2023, 08/21/2023 DIABETES: BLOOD SUGAR CONTROL TEST (HGBA1C) 12/02/2023 09/02/2023, 03/02/2023, 08/31/2022, Additional history exists DIABETES: ANNUAL URINE PROTEIN TEST (MICROALBUMIN) 03/02/2024 03/02/2023, 10/09/2021, 01/20/2021, Additional history exists DIABETES: ANNUAL EYE EXAM 04/13/20242022, 10/09/2020, 10/07/2020 (External Completion), Additional history exists Covid-19 Vaccine ( season) 2024 08/02/2023, 08/02/2023, 08/02/2023, Additional history exists DIABETES/HEART DISEASE: ANNUAL CHOLESTEROL (LDL) 09/02/2024 09/02/2023, 03/02/2023, 02/26/2022, Additional history exists BMI CHECK/ADVISE 09/13/2024 03/05/2023 (Com pleted), 11/01/2020, 08/01/2020, Additional history exists INFLUENZA (Season Ended) 2025 023, 08/21/2023, 06/26/2022, Additional history exists DTAP/TDAP/TD (2 - Td or Tdap) 08/17/2032 08/17/2022, 08/17/2022, 08/17/2022 PNEUMOCOCCAL VACCINE Completed 06/15/2016, 06/15/2016, 12/31/2014 HEPATITIS C SCREENING Addressed 09/08/2023 (Past Eligible Age) Overridden with the intention of not completing the topic Care Teams Tube Carrier Relationship Specialty Start Date End Date Community, Pcp PCP - General Internal Medicine 06/07/24
--- OUTSIDE RECORDS SUMMARY | 2025-01-11 07:53 | XMS_ITS | Encounter Summary ---
Author Organization [employer] [facility] Address [address] [place] [address] Care Team Providers Care Marble Polisher Name Role Phone Connie Barros MD Primary Care Provider [phone] [facility], Pcp Primary Care Provider Unavailabl e Reason for Visit * Reason Onset Date Comments immunizations 08/17/2022 mmr Encounter Details Date Type Department Care Team Description 08/17/2022 Telephone Adult Medicine - [place] [address] [place] [address] Connie Barros MD [address], [place] [id number] immunizations (mmr) Social History Tobacco Use Types Packs/Day Years Used Date Smoking Tobacco: Never Smokeless Tobacco: Never Alcohol Use Standard Drinks/Week Comments Yes 0 (1 standard drink = 0.6 oz pur e alcohol) rare Sex Assigned at Date Recorded Female 02/20/2021 7:31 AM E DT Job Start Date Occupation Industry Not on file Not on file Not on file COVID-19 Exposure Response Date Recorded In the last 10 days, have yo u been in contact with someone who was confirmed or suspected to have Coronavirus/COVID-19? No / Unsure 08/17/2022 2:13 PM EST documented as of this encounter Miscellaneous Notes * Telephone Encounter - Danielle Slaughter L.P.N. - 08/17/2022 11:52 AM EST Pt scheduled today for MMR and TD * Telephone Encounter - Connie Barros MD - 08/17/2022 11:20 AM EST will have her come in and get the Td and an MMR booster as I do not have any information. however to get full immunization it takes 2 weeks so she should definitely be cautious when she goes to visit. Orders placed for Td and MMR booster * Telephone Encounter - Danielle Slaughter L.P.N. - 08/17/2022 10:54 AM EST Symptoms patient is presenting: pt is calling and states she is leaving to see her family in [place] 08/18/2022. States she had received a call this morning stating her granddaughter may possible havemumps/strep/ or mono. Pt would like information as in : if she is caught up on her MMR shots? If a booster could benefit her ?,if booster can help , could pt have this ordered and administered prior to her leaving 08/18 noon time PLEASE comment on this question? Assuming pt has immunity already or maybe not? * Telephone Encounter - Rochelle Servin - 08/17/2022 10:19 AM EST Symptoms patient is presenting: pt is calling and states she is leaving to see her family in [place] 08/18/2022. States she had received a call this morning stating her granddaughter may possible havemumps/strep/ or mono. Pt would like information as in : if she is caught up on her MMR shots? If a booster could benefit her ?,if booster can help , could pt have this ordered and administered prior to her leaving 08/18 noon time For ALL patients calling to schedule any appointment (routine, sick visit, follow up, consult, etc.) in the outpatient setting please ask the following questions: ?? Do you have fever of higher than 101, sore throat with difficulty swallowing or severe shortnessof breath? NO If YES to any of these above symptoms, send a message to triage and do not book. Red dot. If no, an audio or video visit should be booked. ?? Have you had close contact with someone with Coronavirus in the last 14 days? NO ?? Have you traveled abroad? NO ?? Have you traveled recently to another state outside of [place], [place], [place], [place], [place], [place], [place]? NO o If yes, did you quarantine for 14 days or have a negative covid test? NO If yes to any of the above, patient is not to be scheduled in office until after 14 day quarantine or negative covid test. If pain or injury related was it due to an accident at work or from a motor vehicle accident? NO If yes, gather 3rd libertarian insurance information Date of accident/Injury: How long has patient had these symptoms?: PCP: Demetra Barros [place] / [place] / Product Type: [place]ARE [id number] documented in this encounter Plan of Treatment Not on file documented as of this encounter Visit Diagnoses Diagnosis Need for prophylactic vaccination with tetanus-diphtheria (Td) Need for prophylactic vaccination with hmwsrxv-pqxxk-asedtaq (MMR) vaccine documented in this encounter Care Teams Marble Polisher Relationship Specialty Start Date End Date Connie Barros MD [address] [place] [address] PCP - General Internal Medicine 11/28/20 06/06/24 [facility], [facility] [address] [place] [address] PCP - General Internal Medicine 06/07/24 documented as of this encounter
--- OUTSIDE RECORDS SUMMARY | 2025-01-11 07:53 | XMS_ITS | Data Portability ---
Author Organization [place] - [id number] Address [address] [place] [address] Assessment No assessment recorded. Plan of Treatment Reminders Order Date Submit Date Provider Last Modified By Organization Details Last Modified Time Details Appointments None recorded. Lab None recorded. Referral None recorded. Procedures None recorded. Surgeries None recorded. Imaging None recorded. Medication Orders Advair Diskus 250 mcg-50 mcg/dose powder for inhalation 2023 024 JAQUELINE [id number], [address] [place], [address], 4 13:28:23 prednisone 50 mg tablet 2023 024 [email or web address] [id number], [address] [place], [address], 4 17:02:25 Patient TargetsNo targets recorded. Patient InstructionsNo instructions recorded. Reason for Referral None Reported. Problems Name Problem SNOMED Code Status Onset Date Resolution Date Notes Provider Name and Address Organization Details Recorded Time Hypertensive disorder 29818360 Active Vidhyaanna [place]irkland, [place] - [facility] 4 13:07:32 Asthma 154780367 Active Vidhya Suresh null, [place] - [facility] 4 13:07:59 Cough 44161332 Active 2023 Rodriguez Matthews, [facility] [place], [address] , [place] - [facility] 4 13:27:38 [...] Name and Address Organization Details Recorded Time 731398 diclofena c Not available dizziness Not available [...] Updated DateTime 4 165.1 cm 34.9 kg/m2 24145.4 g 97 [degF] 95 % 95 % [...] SNOMED-CT Code Diagnosis ICD10 Code Diagnosis Note [id number] [address] [address] 08/12/2018 11:38:37 08/12/2018 12:24:36 [id number] [place] [id number] [address] 03/01/2024 12:54:51 03/01/2024 13:30:24 Cough 64832047 R05.9 See pcp in 3-4 days. Go [...] Member ID Guarantor Name 08/12/2018 1 MEDICARE B-MD: [facility] [employer] Eloisa Rivero [id number] Eloisa Ranulfo 08/12/2018 2 [facility]ARE [place]PPLEMENT) [id number] Eloisanatacha Rivero [id number] Eloisa Riveor 03/01/2024 1 MEDICARE B-MD: [employer] Eloisa Rivero [id number] Eloisa Winchester Bard 03/01/2024 2 [facility]PPLEMENT) [id number] Eloisanatacha Rivero [id number] Eloisa Rivero Notes Date Note Type [...] Matthews DO [address] [place], [address], [place] - [facility] 03/01/2024 17:02:40 OBGyn Episode No OBEpisode recorded.
--- OUTSIDE RECORDS SUMMARY | 2025-01-11 07:53 | XMS_ITS | Clinical Summary ---
Author Organization [facility] Address [address] [place] [address] Phone Care Team Providers Care Paper Maker Name Role Phone Reshma Vinson Primary Care Provider [phone] Allergies Active Allergy Reactions Criticality Noted Date Comments Atorvastatin 07/06/2019 Diclofenac Sodium 07/06/2019 Hydromorphone Nausea And Vomiting 07/27/2019 dizzy Hydromorphone Hcl 09/23/2022 Nsaids (Non-Steroidal Anti-Inflammatory Drug) Diarrhea,GI intolerance 04/25/2019 Other Wheezing,Runny nose 04/25/2019 Seasonal Allergies Animal dander ??house dust Medications rosuvastatin (CRESTOR) 5 mg tablet TAKE 1 TABLET BY MOUTH EVERY DAY 06/07/20 24 Active lisinopril (PRINIVIL,ZESTRIL) 40 mg tablet Take 1 Tablet by mouth daily. 03/17/20 24 Active albuterol HFA (PROAIR HFA ; PROVENTIL HFA ; VENTOLIN HFA) 90 mcg/actuation inhaler Inhale 2 Puffs into the lungs every 4 hours as needed for Cough or Wheezing. 01/07/20 24 Active montelukast (SINGULAIR) 10 mg tablet TAKE 1 TABLET BY MOUTH EVERYDAY AT BEDTIME 10/28/19 24 Active turmeric root extract 500 mg capsule Take by mouth. Activ e multivit-min/iron/ folic acid/K (ADULTS MULTIVITAMIN ORAL) Multiple Vitamins-Minerals (Multivitamin Adult, Minerals,) Tab Take 1 tablet by mouth daily. Active omega-3 (FISH OIL) 360-1,200 mg capsule Take 1 capsule by mouth daily. Active cholecalciferol, vitamin D3, (D3-50 CHOLECALCIFEROL ORAL) Cholecalciferol (D-3-5 OR) Take by mouth. Active vitamin B complex (B COMPLEX ORAL) Take by mouth daily. Active cetirizine (ZyrTEC) 10 mg tablet Take 10 mg by mouth daily. Active Active Problems Problem Noted Date Diagnosed Date Cerebellar ataxia ([facility] V24, [facility] V28) Overview (09/22/2024): Dr Hastings- yearly, EMG 2006 Nrml, MRI 2006 Non specific findings Allergic rhinitis 04/25/2019 Asthma 04/25/2019 Diabetes mellitus type 2, un complicated ([facility] V24, [facility] V28) 04/25/2019 Hypercalcemia 04/25/2019 Overview (09/22/2024): She notes she was told this a long time ago, unclear details Hypertension 04/25/2019 Hypertriglyceridemia 04/25/2019 Osteoarthritis 04/25/2019 Overview (09/22/2024): Cervical Spine, Hands/thumbs/right shoulder/knees Immunizations Name Administration Dates Next Due Influenza trivalent, 0.5mL ( Fluad) 65yo and older 06/26/2022,06/13/2021,06/26/2020,06/25 Influenza trivalent, with pr eservative (Fluzone; Afluria) 6mo and older 08/21/2023 Influenza, Unspecified 08/21/2023 MMR, measles mumps and rubel la Live (Priorix; M-M-R II) 12mo and older 08/17/2022 Moderna Covid-19 Bivalent, O riginal + Ba.1 (Non-US Tradename Spikevax Bivalent) 06/29/2022 Pneumococcal conjugate 13 va lent (Prevnar 13, PCV13) 2mo and older 06/15/2016 Pneumococcal polysaccharide 23 valent (Pneumovax 23) 2yo and older 06/15/2016,12/31/2014 Respiratory syncytial virus (RSV), unspecified 08/02/2023 Td Tetanus diptheria (Tdvax) 7yo and older 08/17/2022 Tdap Tetanus diptheria acell ular pertussis (Boostrix; Adacel) 7yo and older 08/17/2022 Zoster recombinant (Shingrix ) 19yo and older 08/21/2023 Surgical History Surgery Date Site/Laterality Comments BUNIONECTOMY Left PROCEDURE: BUNION SURGERY, SIMPLE REMOVAL TUBAL LIGATION PROCEDURE: HISTORICAL TUBAL LIGATION OTHER SURGICAL HISTORY PROCEDURE: CA TX ECTOPIC ABDOMINAL/VAGINAL APPR; COMMENT: removal of tube/ovary APPENDECTOMY PROCEDURE: HISTORICAL APPENDECTOMY OTHER SURGICAL HISTORY 06/08/2018 Right PROCEDURE: CA ARTHROPLASTY GLENOHUMERAL JOINT TOTAL SHOULDER; COMMENT: Dr Armen HART Medical History Medical History Date Comments H/O shoulder replacement 07/06/2019 DX:H/O shoulder replacement; COMMENT: 05/2018 Right Diabetes mellitus type 2, uncomplicated ([facility] V24, [facility] V28) 04/25/2019 DX:Diabetes mellitus type 2, uncomplicated (HCC) Allergic rhinitis 04/25/2019 DX:Allergic rh initis Cerebellar ataxia ([facility] V 24, [facility] V28) 07/06/2019 DX:Cerebellar ataxia ([facility]); COMMENT: Dr Hastings- yearly, EMG 2006 Nrml, MRI 2006 Non specific findings Osteoarthritis 04/25/2019 DX:Osteoarthriti s; COMMENT: Cervical Spine, Hands/thumbs/right shoulder/knees Asthma 04/25/2019 DX:Asthma Hypercalcemia 04/25/2019 DX:Hypercalcemia ; COMMENT: She notes she was told this a long time ago, unclear details Hyperlipidemia 04/25/2019 DX:Hyperlipidemi a Hypertension 04/25/2019 DX:Hypertension Obesity due to excess calori es with serious comorbidity 04/25/2019 DX:Obesity due to excess ancelmo ories with serious comorbidity Family History Medical History Relation Name Comments Other: snow mobile accident 2000, paralyzed Brother Other: food allergies Daughter 1 Other: CKD on HD Father diabetes, heart issues , [place]? Stroke Mother Arthritis Sister Relation Name Status Comments Brother Daughter 1 Alive Daughter 2 Alive Daughter 3 Alive Father Mother Sister Son Alive Social History Tobacco Use Types Packs/Day Years Used Date Smoking Tobacco: Never Smokeless Tobacco: Never Alcohol Use Standard Drinks/Week Comments Yes 0 (1 standard drink = 0.6 oz pur e alcohol) Comments Unknown Sex and Gender Information Value Date Recorded Sex Assigned at Not on file Legal Sex Female 10:39 AM EST Gender Identity Not on file Sexual Orientation Not on file Obstetrics History Last Filed Vital Signs Vital Sign Reading Time Taken Comments Blood Pressure 162/89 01/03/2024 9:07 AM EDT Pulse 88 01/03/2024 9:07 AM EDT Temperature - - Respiratory Rate - - Oxygen Saturation - - Inhaled Oxygen Concentration - - Weight 98.4 kg (217 lb) 01/03/2024 9:07 AM EDT Height 165.1 cm (5' 5 ) 09/08/2023 10:50 AM EST Body Mass Index 36.11 09/08/2023 10:50 AM EST Plan of Treatment Upcoming Encounters Date Type Department Care Team (Late st Contact Info) Description 01/23/2025 3:15 PM EDT Consult General Surgery - [place] [address] [facility] [address] [place] [address] Rosa Ricardo MD [address] [facility] [address] [place] [address] Health Maintenance Due Date Last Done Comments Breast Cancer Screening 1950 Diabetes: Annual Foot Exam 01/27/1960 Diabetes: Annual Retina Eye Exam 01/27/1960 Hepatitis A Vaccines (1 of 2 - Risk 2-dose series) 1969 Hepatitis B Vaccines (1 of 3 - Risk 3-dose series) 2010 RSV Immunization Adult Patients (1 - Risk 60-74 years 1-dose series) 2010 08/02/2023 Colorectal Cancer Screening: Colonoscopy 08/22/2022 Depression Screening 08/22/2022 Falls Risk Assessment 08/22/2022 Medicare Annual Wellness Visit 08/22/2022 Osteoporosis Screening (Bone Density Screening) 08/22/2022 Social Influencers of Health Screening 08/22/2022 Zoster Vaccines (2 of 2) 10/16/2023 08/21/2023 Diabetes: Annual Urine Albumin-Creatinine Ratio (uACR) 03/02/2024 03/02/2023 Diabetes: Blood Sugar Control Test (HGBA1C) 03/03/2024 09/02/2023 COVID-19 Vaccine ( season) 2024 08/02/2023, 06/29/2022, 08/22/2021, Additional history exists Diabetes: Annual GFR (Glomerular Filtration Rate) 09/02/2024 09/02/2023 Hypertension/CHF/CAD Annual BMP Blood Test 09/02/2024 09/02/2023 Cholesterol Screening (Lipid Panel) 09/02/2028 09/02/2023 DTaP,Tdap,and Td Vaccines (3 - Td or Tdap) 08/17/2032 08/17/2022, 08/17/2022 Pneumococcal Vaccine: 50+ Years Completed 06/15/2016, 06/15/2016, 12/31/2014 MMR Vaccines Aged Out 08/17/2022 No longer eligi ble based on patient's age to complete this topic RSV Immunization Patients Under 20 months Aged Out 08/02/2023 No longer eligible based on patient's age to complete this topic Hepatitis C Screening Completed 09/08/2023 Influenza Vaccine Completed 06/06/2024, , 08/21/2023, Additional history exists HIB Vaccines Aged Out No longer eligi ble based on patient's age to complete this topic HPV Vaccines Aged Out No longer eligi ble based on patient's age to complete this topic IPV Vaccines Aged Out No longer eligi ble based on patient's age to complete this topic Meningococcal ACWY Vaccine Aged Out N o longer eligible based on patient's age to complete this topic Meningococcal B Vaccine Aged Out No l onger eligible based on patient's age to complete this topic Varicella Vaccines Aged Out No longer eligible based on patient's age to complete this topic Procedures Procedure Name Priority Date/Time Associated Diagnosis Comments HEPATITIS C SCREENING Routine 09/08/2023 ANNUAL BMP BLOOD TEST Routine 09/02/2023 HEMOGLOBIN A1C Routine 09/02/2023 LIPID PANEL Routine 09/02/2023 URINE ALBUMIN CREATININE RATIO Routine 03/02/2023 from Last 3 Months or Most Recently Relevant to Health Maintenance Results * Hepatitis C Screening (09/08/2023) Hepatitis C Screening abstracted Result [facility] Provider HEALTH MAINTENANCE Final Result * Annual BMP Blood Test (09/02/2023) Pathologist [facility] Annual BMP Blood Test abstracted Result [facility] Provider HEALTH MAINTENANCE Final Result * (ABNORMAL) Hemoglobin A1c (09/02/2023) [facility] Hemoglobin A1C 6.8(A) <=6.5 % Blood Venous blood specimen / Unknown Result [facility] Provider LAB BLOOD ORDERABLES Eneida l Result * (ABNORMAL) Lipid panel (09/02/2023) [facility] LDL/HDL Ratio 5(A) 0 - 4 Triglycerides 375(A) 0 - 150 mg/dL Cholesterol 206(A) 0 - 200 mg/dL HDL 43 >=40 mg/dL LDL Cholesterol 88 0 - 100 mg/dL Blood Venous blood specimen / Unknown Result [facility] Provider LAB BLOOD ORDERABLES Eneida l Result * Urine Albumin Creatinine Ratio (03/02/2023) [facility] Urine Albumin Creatinine Ratio abstracted Result [facility] Provider HEALTH MAINTENANCE Final Result from Last 3 Months or Most Recently Relevant to Health Maintenance Insurance MEDICARE [facility] Care Teams Paper Maker Relationship Specialty Start Date End Date Reshma Vinson PA [address] [place] [id number] PCP - General Physician Early Childhood 01/09/25
--- OUTSIDE RECORDS SUMMARY | 2025-01-11 07:53 | XMS_ITS | Encounter Summary ---
Author Organization [facility] Address [address] [place] [address] Care Team Providers Care Dietitian Teaching Name Role Phone Connie Barros MD Primary Care Provider [phone] Community, Pcp Primary Care Provider Unavailabl e Encounter Details Date Type Department Care Team Description 02/25/2024 Pt. Non Urgent Medic al Question Adult Medicine - [place] [address] [place] [address] Connie Barros MD [address] [place] [address] Social History Tobacco Use Types Packs/Day Years Used Date Smoking Tobacco: Never Smokeless Tobacco: Never Alcohol Use Standard Drinks/Week Comments Yes 0 (1 standard drink = 0.6 oz pur e alcohol) rare Sex Assigned at Date Recorded Female 02/20/2021 7:31 AM E DT Job Start Date Occupation Industry Not on file Not on file Not on file documented as of this encounter Miscellaneous Notes * Telephone Encounter - Demetra Menon M.A. - 02/28/2024 9:27 AM EDTFrom: Eloisa Rivero To: Bhakti Barros Sent: 02/25/2024 9:50 PM EDT Subject: March appointment Do or do I not have an appointment on March 09 as per the appoint card I received at my last visit? documented in this encounter Plan of Treatment Not on file documented as of this encounter Visit Diagnoses Not on filedocumented in this encounter Care Teams Dietitian Teaching Relationship Specialty Start Date End Date Connie Barros MD [address] [place] [address] PCP - General Internal Medicine 11/28/20 06/06/24 [facility], Steven [address] [place] [address] PCP - General Internal Medicine 06/07/24 documented as of this encounter
--- OUTSIDE RECORDS SUMMARY | 2025-01-11 07:53 | XMS_ITS | Encounter Summary ---
Author Organization [facility] Address [address] [place] [address] Care Team Providers Care Automobile Salesman Name Role Phone Connie Barros MD Primary Care Provider [phone] [facility], Pcp Primary Care Provider Unavailabl e Encounter Details Date Type Department Care Team Description 11/01/2023 Pt. Non Urgent Medic al Question Adult Medicine - [place] [address] [place] [address] Connie Barros MD [address] [place] [address] Social History Tobacco Use Types Packs/Day Years [...] Telephone Encounter - Demetra Menon M.A. - 11/02/2023 9:54 AM ESTFrom: Eloisa Rivero To: Bhakti Barros Sent: 11/01/2023 10:37 PM EST Subject: prescription renewal Why is my refill for MON being approved by Dr. Nina Ceballos and not Dr. Raine Travis? There is noteven a listing of a Dr. Nina Ceballos! Just who IS this person and why was the prescription authorized by this and not the one who has written the prescription for me? documented in this encounter Plan of Treatment Not on file documented as of this encounter Visit Diagnoses Not on filedocumented in this encounter Care Teams Automobile Salesman Relationship Specialty Start Date End Date Connie Barros MD [address] [place] [address] PCP - General Internal Medicine 11/28/20 06/06/24 [facility], Pcp [address] [place] [address] PCP - General Internal Medicine 06/07/24 documented as of this encounter
--- OUTSIDE RECORDS SUMMARY | 2025-01-11 07:53 | XMS_ITS | Encounter Summary ---
Author Organization [facility] Address [address] [place] [address] Care Team Providers Care Log Deck Tender Name Role Phone Connie Barros MD Primary Care Provider [phone] [facility], Pcp Primary Care Provider Unavailabl e Encounter Details Date Type Department Care Team Description 12/08/2020 Orders Only Medicine/Pediatrics - [address] [address] Benito Diaz MD Type 2 diabetes mellitus without complication, without long-term current use of insulin (HCC) (Primary Dx) Social History Tobacco Use Types Packs/Day Years Used Date Smoking Tobacco: Never Smokeless Tobacco: Never Alcohol Use Standard Drinks/Week Comments Yes 0 (1 standard drink = 0.6 oz pur e alcohol) rare Sex Assigned at Date Recorded Female 02/20/2021 7:31 AM E DT Job Start Date Occupation Industry Not on file Not on file Not on file documented as of this encounter Plan of Treatment Not on file documented as of this encounter Results * (ABNORMAL) COMPREHENSIVE METABOLIC PANEL (01/20/2021 10:21 AM EDT) GLUCOSE 127(H) 70 - 100 mg/dL 01/20/2021 1:39 PM EDT [facility] Comment:Reference range appl icable to fasting specimens only Blood Urea Nitrogen 18 5 - 25 mg/dL 01/20/2021 1:39 PM EDT [facility] CREAT 0.77 0.5 - 1.1 mg/dL 01/20/2021 1:39 PM EDT [facility] GLOMERULAR FILTRATION RATE > 60 01/20/2021 1:39 PM EDT [facility] Comment: If patient is -[place], multiply result by 1.21 Chronic Kidney Disease: < 60 ml/min/1.73 square meters Kidney Failure: < 15 ml/min/1.73 square meters NA 137 135 - 145 mEq/L 01/20/2021 1:39 PM EDT [facility] K 4.4 3.5 - 5.5 mmol/L 01/20/2021 1:39 PM EDT [facility] CL 107 96 - 110 mmol/L 01/20/2021 1:39 PM EDT [facility] CARBON DIOXIDE (CO2) 24 21 - 32 mmol/L 01/20/2021 1:39 PM EDT [facility] ANION GAP 6 3 - 11 01/20/2021 1:39 PM EDT [facility] CALCIUM 9.6 8.5 - 10.5 mg/dL 01/20/2021 1:39 PM EDT [facility] Albumin 4.1 3.2 - 5.0 G/dL 01/20/2021 1:39 PM EDT [facility] BILIRUBIN TOTAL 0.3 0.0 - 1.4 mg/dL 01/20/2021 1:39 PM EDT [facility] SGOT 28 10 - 42 U/L 01/20/2021 1:39 PM EDT [facility] SGPT 39 10 - 60 U/L 01/20/2021 1:39 PM EDT [facility] TOTAL PROTEIN (TP) 7.6 6.0 - 8.0 G/dL 01/20/2021 1:44 PM EDT [facility] ALK PHOS 111 42 - 121 U/L 01/20/2021 1:44 PM EDT [facility] 01/20/2021 10:2 1 AM EDT 01/20/2021 10:22 AM EDT Benito Diaz MD LAB [facility] * (ABNORMAL) MICROALBUMIN/CREATININE, URINE (01/20/2021 10:21 AM EDT) CREATININE, RANDOM URINE 57 mg/dL 01/20/2021 1:55 PM EDT [facility] MICROALBUMIN, RANDOM 35.6(H) 0.0 - 29.0 mg/L 01/20/2021 2:09 PM EDT [facility] MICROALB/CRE RATIO RANDOM 62.4(H) 0.0 - 30.0 mg/G 01/20/2021 2:09 PM EDT [facility] 01/20/2021 10:2 1 AM EDT 01/20/2021 10:22 AM EDT Benito Diaz MD LAB [facility] * (ABNORMAL) HEMOGLOBIN A1C (01/20/2021 10:21 AM EDT) GLYCATED HEMOGLOBIN A1C 7.0(H) <6.5 % 01/20/2021 1:36 PM EDT [facility] ESTIMATED AVERAGE GLUCOSE 154 mg/dL 01/20/2021 1:36 PM EDT [facility] 01/20/2021 10:2 1 AM EDT 01/20/2021 10:22 AM EDT Benito Diaz MD LAB [facility] documented in this encounter Visit Diagnoses Diagnosis Type 2 diabetes mellitus without complication, without long-term current use of insulin (HCC)- Primary documented in this encounter Care Teams Log Deck Tender Relationship Specialty Start Date End Date Connie Barros MD [address] [place] [address] PCP - General Internal Medicine 11/28/20 06/06/24 [facility] [address] [place] [address] PCP - General Internal Medicine 06/07/24 documented as of this encounter
--- OUTSIDE RECORDS SUMMARY | 2025-01-11 07:53 | XMS_ITS | Encounter Summary ---
Author Organization [facility] Address [address] [place] [address] Care Team Providers Care Animal Science Professor Name Role Phone Connie Barros MD Primary Care Provider [phone] [facility], [facility], Pcp Primary Care Provider Unavailabl e Reason for Visit * Reason Comments E-prescribe Rx Request Encounter Details Date Type Department Care Team Description 04/30/2024 Refill Adult Medicine - [address] [address] Eligio Ceballos PA-C [address] [place] [address] E-prescribe Rx Request Social History Tobacco Use Types Packs/Day Years [...] encounter Miscellaneous Notes * Telephone Encounter - Stephanie Cotton - 06/07/2024 3:32 PM EDT Outside PCP. Please refuse * Telephone Encounter - Demetra Menon M.A. - 06/07/2024 2:37 PM EDT Pt canceled appt 07/04/24 appt * Telephone Encounter - Irina Singh - 05/16/2024 11:21 AM EDT Lvm to schedule * Telephone Encounter - Demetra Menon M.A. - 05/02/2024 12:33 PM EDT Next appointment needs to be scheduled to further process refill request for review * Telephone Encounter - Irina Singh - 05/01/2024 4:58 PM EDT Refills Last office visit: 09/08/23 Last pcp: same Next office visit: lvm appt due 03/09/23 documented in this encounter Plan of Treatment Not on file documented as of this encounter Visit Diagnoses Not on filedocumented in this encounter Care Teams Animal Science Professor Relationship Specialty Start Date End Date Connie Barros MD [address] [place] [address] PCP - General Internal Medicine 11/28/20 06/06/24 [facility], [facility], [facility] [address] [place] [address] PCP - General Internal Medicine 06/07/24 documented as of this encounter
--- OUTSIDE RECORDS SUMMARY | 2025-01-11 07:53 | XMS_ITS | Encounter Summary ---
Author Organization [facility] Address [address] [place] [address] Care Team Providers Care Ward Attendant Name Role Phone Connie Barros MD Primary Care Provider [phone] [facility], Pcp Primary Care Provider Unavailabl e Reason for Visit * Reason Comments E-prescribe Rx Request Encounter Details Date Type Department Care Team Description 12/03/2020 Refill Adult Medicine - [address] [address] Rhiannon Bolivar MD E-prescribe Rx Request Social History Tobacco Use [...] encounter Miscellaneous Notes * Telephone Encounter - Irina Singh - 12/03/2020 10:35 AM EDT Patient would like script to be: E-PRESCRIBED/FAXED TO PHARMACY WHEN WAS THE PATIENT'S LAST APPOINTMENT IN ADULT MEDICINE? 11/01/2020 WHEN WAS THE LAST TIME THE PATIENT SAW THEIR PCP? 08/01/20 Does patient have an upcoming appointment? Yes 02/06/2021 (THE MEDICATION REQUESTED IS ON THE MED LIST ABOVE) All of the medications requested were on the CURRENT MEDS list Did you check the Pharmacy information above?: YES Patient wants: 30 -day supply Is this a mail order prescription request ? NO If the refill is from a FAXED refill request what is the RX # listed on the fax? N/A Patients current insurance carrier is: [place] / [place] / Product Type: MEDICARE [id number] documented in this encounter Plan of Treatment Not on file documented as of this encounter Visit Diagnoses Not on filedocumented in this encounter Care Teams Ward Attendant Relationship Specialty Start Date End Date Connie Barros, [address] [place] [address] PCP - General Internal Medicine 11/28/20 06/06/24 [facility], Pcp [address] [place] [address] PCP - General Internal Medicine 06/07/24 documented as of this encounter
== END 2025-01-11 08:38 | disposition home or self-care (01) ==
LOC: HO.ENCR 07:50
PROVIDERS: PCP Physician Assistant Medical; Visit Provider Student in an Organized Health Care Education/Training Program
DX: E83.52 Hypercalcemia (principal)
CPT/HCPCS: 99204

== ENCOUNTER → 2025-01-11 07:49 | Outpatient (BNVA) | payer MEDICARE, SELFPAY | PROVIDERS: PCP Physician Assistant Medical; Visit Provider Student in an Organized Health Care Education/Training Program | DX: E83.52 Hypercalcemia (principal); E11.9 Type 2 diabetes mellitus without complications; E78.5 Hyperlipidemia, unspecified | CPT/HCPCS: 99202 ==

== ENCOUNTER 2025-01-17 11:42 | Outpatient (REF) | payer MEDICARE, SELFPAY ==
[2025-01-17 12:49] LABS: Creatinine, mg/dL 54.37
[2025-01-17 12:52] LABS: Albumin Level 4.6 g/dL (3.5-5.0); Calcium 10.9 mg/dL (8.4-10.2); Estimated Glomerular Filt Rate > 60; Magnesium 1.9 mg/dL (1.6-2.6); Phosphorus 2.5 mg/dL (2.7-4.5)
[2025-01-17 12:53] LABS: Parathyroid Hormone Intact 62.5 pg/mL (8.7-77.1)
[2025-01-17 13:07] LABS: Vitamin D 25-OH Total 63.1 ng/mL (>30)
--- OUTSIDE RECORDS SUMMARY | 2025-01-17 13:07 | XMS_ITS | Clinical Summary ---
Author Organization [address] [facility] Address [address] [place] [address] Phone Care Team Providers Care Broadcast Program Director Name Role Phone Reshma Vinson Primary Care Provider [phone] Allergies Active Allergy Reactions Criticality Noted Date [...] Problem Noted Date Diagnosed Date Cerebellar ataxia ([facility] V24, [facility] V28) Overview (09/22/2024): Dr Hastings- yearly, EMG 2006 Nrml, MRI 2006 Non specific findings Allergic rhinitis 04/25/2019 Asthma 04/25/2019 Diabetes mellitus type 2, un complicated ([facility] V24, [facility] V28) 04/25/2019 Hypercalcemia 04/25/2019 Overview (09/22/2024): She [...] HISTORICAL TUBAL LIGATION OTHER SURGICAL HISTORY PROCEDURE: PA TX ECTOPIC ABDOMINAL/VAGINAL APPR; COMMENT: removal of tube/ovary APPENDECTOMY PROCEDURE: HISTORICAL APPENDECTOMY OTHER SURGICAL HISTORY 06/08/2018 Right PROCEDURE: PA ARTHROPLASTY GLENOHUMERAL JOINT TOTAL SHOULDER; COMMENT: Dr Armen HART Medical History Medical History Date Comments H/O shoulder replacement 07/06/2019 DX:H/O shoulder replacement; COMMENT: 05/2018 Right Diabetes mellitus type 2, uncomplicated ([facility] V24, [facility] V28) 04/25/2019 DX:Diabetes mellitus type 2, uncomplicated (HCC) Allergic rhinitis 04/25/2019 DX:Allergic rh initis Cerebellar ataxia ([facility] V 24, [facility] V28) 07/06/2019 DX:Cerebellar ataxia ([facility]); COMMENT: Dr Hastings- yearly, EMG 2006 Nrml, [...] on HD Father diabetes, heart issues , [place]? Stroke Mother Arthritis Sister Relation Name Status [...] 3:15 PM EDT Consult General Surgery - [place] [address] [facility] [address] [place] [address] Rosa Ricardo MD [address] [facility] [address] [place] [address] Health Maintenance Due Date Last Done Comments [...] Screening (09/08/2023) Hepatitis C Screening abstracted Result [facility] Provider HEALTH MAINTENANCE Final Result * Annual BMP Blood Test (09/02/2023) Pathologist [facility] Annual BMP Blood Test abstracted Result [facility] Provider HEALTH MAINTENANCE Final Result * (ABNORMAL) Hemoglobin A1c (09/02/2023) [facility] Hemoglobin A1C 6.8(A) <=6.5 % Blood Venous blood specimen / Unknown Result [facility] Provider LAB BLOOD ORDERABLES Ene[place] l Result * (ABNORMAL) Lipid panel (09/02/2023) [facility] LDL/HDL Ratio 5(A) 0 - 4 Triglycerides 375(A) 0 - 150 mg/dL Cholesterol 206(A) 0 - 200 mg/dL HDL 43 >=40 mg/dL LDL Cholesterol 88 0 - 100 mg/dL Blood Venous blood specimen / Unknown Result [facility] Provider LAB BLOOD ORDERABLES [place] l Result * Urine Albumin Creatinine Ratio (03/02/2023) [facility] Urine Albumin Creatinine Ratio abstracted Result [facility] Provider HEALTH MAINTENANCE Final Result from Last 3 Months or Most Recently Relevant to Health Maintenance Insurance MEDICARE [facility] Care Teams Broadcast Program Director Relationship Specialty Start Date End Date Reshma Vinson PA [address] [place] [address] PCP - General Physician Supervisor [employer] 01/09/25
--- OUTSIDE RECORDS SUMMARY | 2025-01-17 13:07 | XMS_ITS | Encounter Summary ---
Author Organization [facility] Address [address] [place] [address] Care Team Providers Care Neuroscience Specialist Name Role Phone Connie Barros MD Primary Care Provider [phone] Community, Pcp Primary Care Provider Unavailabl e Encounter Details Date Type Department Care Team Description 02/25/2024 Pt. Non Urgent Medic al Question Adult Medicine - [facility] [address] [place] [address] Connie Barros MD [address] [place] [address] Social History Tobacco Use Types Packs/Day Years [...] on filedocumented in this encounter Care Teams Neuroscience Specialist Relationship Specialty Start Date End Date Connie Barros MD [address] [place] [address] PCP - General Internal Medicine 11/28/20 06/06/24 [facility], Steven [address] [place] [address] PCP - General Internal Medicine 06/07/24 documented as of this encounter
--- OUTSIDE RECORDS SUMMARY | 2025-01-17 13:07 | XMS_ITS | Data Portability ---
Author Organization [place] - [facility] Address [address] [place] [address] Assessment No assessment recorded. Plan of Treatment Reminders Order Date Submit Date Provider Last Modified By Organization Details Last Modified Time Details Appointments None recorded. Lab None recorded. Referral None recorded. Procedures None recorded. Surgeries None recorded. Imaging None recorded. Medication Orders Advair Diskus 250 mcg-50 mcg/dose powder for inhalation 2023 024 JAQUELINE [id number], [address] [place], [address], 4 13:28:23 prednisone 50 mg tablet 2023 024 [email or web address] [id number], [address] [place], [address], 4 17:02:25 Patient TargetsNo targets recorded. Patient InstructionsNo instructions recorded. Reason for Referral None Reported. Problems Name Problem SNOMED Code Status Onset Date Resolution Date Notes Provider Name and Address Organization Details Recorded Time Hypertensive disorder 30259237 Active Vidhyaanna kirkalnd, [place] - [facility] 4 13:07:32 Asthma 234452055 Active Vidhya Suresh null, [place] - [facility] 4 13:07:59 Cough 25435394 Active 2023 Rodriguez Matthews, [facility], [address] , [place] - [facility] 4 13:27:38 [...] Name and Address Organization Details Recorded Time 103243 diclofena c Not available dizziness Not available [...] Updated DateTime 4 165.1 cm 34.9 kg/m2 01708.4 g 97 [degF] 95 % 95 % [...] SNOMED-CT Code Diagnosis ICD10 Code Diagnosis Note [id number] [address] [address] 08/12/2018 11:38:37 08/12/2018 12:24:36 [id number] [place] [address] [address] 03/01/2024 12:54:51 03/01/2024 13:30:24 Cough 81278820 R05.9 See pcp in 3-4 days. Go [...] Recorded Advance Directives Directive None Recorded Payers Insurance Date Sequence Insurance Name Policy Number Policy Segundo Covered Member ID Segundo Member ID Guarantor Name 03/01/2024 1 [place] [employer] Eloisa Rivero [id number] Eloisa Rivero 03/01/2024 2 [place] [id number] Eloisa Rivero [id number] Eloisa Rivero Notes Date Note Type [...] Matthews DO [address] [place], [address], [place] - [facility] 03/01/2024 17:02:40 OBGyn Episode No OBEpisode recorded.
--- OUTSIDE RECORDS SUMMARY | 2025-01-17 13:07 | XMS_ITS | Encounter Summary ---
Author Organization [facility] Address [address] [place] [address] Care Team Providers Care Humane Officer Name Role Phone Connie Barros MD Primary Care Provider [phone] [phone] [facility], Pcp Primary Care Provider Unavailabl e Encounter Details Date Type Department Care Team Description 02/23/2024 Pt. Non Urgent Medic al Question Adult Medicine - [place] [address] [place] [address] Connie Barros MD [address] [place] [address] Social History Tobacco Use Types Packs/Day Years [...] encounter Miscellaneous Notes * Telephone Encounter - Eloisa Salgado L.P.N. - 02/23/2024 4:14 PM EDTFrom: Eloisa Rivero To: Bhakti Barros Sent: 02/23/2024 4:03 PM EDT Subject: Upcoming appointment On the appointment card I was handed at my last visit, the date for the upcoming appointment is listed as: 03-09-24, NOT on the . I cannot make an appointment on the . Please contact me about this mixup. I am planning to be there on March 09, 2024 at 8:30am Eloisa Rivero documented in this encounter Plan of Treatment Not on file documented as of this encounter Visit Diagnoses Not on filedocumented in this encounter Care Teams Humane Officer Relationship Specialty Start Date End Date Connie Barros MD [address] [place] [address] PCP - General Internal Medicine 11/28/20 06/06/24 [facility], Pcp [address] [place] [address] PCP - General Internal Medicine 06/07/24 documented as of this encounter
--- OUTSIDE RECORDS SUMMARY | 2025-01-17 13:07 | XMS_ITS | Encounter Summary ---
Author Organization [email or web address] [facility] Address [address] [place] [address] Care Team Providers Care Grounds Person Name Role Phone Connie Barros MD Primary Care Provider [phone] [phone] [facility], Pcp Primary Care Provider Unavailabl e Reason for Visit * Reason Onset Date Comments immunizations 08/17/2022 mmr Encounter Details Date Type Department Care Team Description 08/17/2022 Telephone Adult Medicine - [place] [address] [place] [address] Connie Barros MD [address], [place] [phone] immunizations (mmr) Social History Tobacco Use Types [...] is leaving to see her family in [place] 08/18/2022. States she had received a call [...] is leaving to see her family in [place] 08/18/2022. States she had received a call [...] traveled recently to another state outside of [place], [place], [place], [place], [place], [place], [place]? NO o If yes, did you [...] vehicle accident? NO If yes, gather 3rd democrat insurance information Date of accident/Injury: How long has patient had these symptoms?: PCP: Demetra Barros [place] / [place] / Product Type: MEDICARE [id number] documented in this encounter Plan of Treatment Not on file documented as of this encounter Visit Diagnoses Diagnosis Need for prophylactic vaccination with tetanus-diphtheria (Td) Need for prophylactic vaccination with poatywz-ktqyu-qaaabft (MMR) vaccine documented in this encounter Care Teams Grounds Person Relationship Specialty Start Date End Date Connie Barros MD [address] [place] [address] PCP - General Internal Medicine 11/28/20 06/06/24 [facility], [facility] [address] [place] [address] PCP - General Internal Medicine 06/07/24 documented as of this encounter
--- OUTSIDE RECORDS SUMMARY | 2025-01-17 13:07 | XMS_ITS | Clinical Summary ---
Author Organization [facility] Address [address] [place] [address] Care Team Providers Care Flight Engineer Performance Qualified Name Role Phone [facility], Pcp Primary Care [...] 1 tablet by mouth daily. 0 Active [place]-3 Fatty Acids (Fish Oil) 1200 MG Cap [...] dose age 65 and over 06/26/2022,06/13/2021,06/26/2020,06/25 MMR (Cmxjapl-Yicth-Pewfeyj) 08/17/2022 Pneumoccoccal(Adult) Polysac charide [id number] 06/15/2016,12/31/2014 Pneumococcal [...] HD Father diabetes, hear t issues , [place]? Stroke Mother Arthritis Sister Relation Name Status [...] of not completing the topic Care Teams Flight Engineer Performance Qualified Relationship Specialty Start Date End Date [facility], Pcp PCP - General Internal Medicine 06/07/24
--- OUTSIDE RECORDS SUMMARY | 2025-01-17 13:07 | XMS_ITS | Encounter Summary ---
Author Organization [employer] [facility] Address [address] [place] [address] Care Team Providers Care Department Of Mathematics Chair Name Role Phone Benito Diaz MD Primary Care Provider Monica Barros Ch MD Primary Care Provider [phone] [phone] [facility], Pcp Primary Care Provider Unavailabl e Encounter Details Date Type Department Care Team Description 08/07/2019 Orders Only Medicine/Pediatrics - [address] [address] Benito Diaz MD Decreased GFR (Primary Dx) Social History Tobacco Use Types [...] as of this encounter Results * (ABNORMAL) BASIC METABOLIC PANEL (11/16/2019 11:26 AM EST) GLUCOSE 102(H) 70 - 100 mg/dL 11/16/2019 3:02 PM EST [facility] Comment:Reference range appl icable to fasting specimens only Blood Urea Nitrogen 21 5 - 25 mg/dL 11/16/2019 3:02 PM EST [facility] CREAT 0.88 0.5 - 1.1 mg/dL 11/16/2019 3:02 PM EST [facility] GLOMERULAR FILTRATION RATE > 60 11/16/2019 3:02 PM EST [facility] Comment: If patient is -Indian, multiply result by 1.21 Chronic Kidney Disease: < 60 ml/min/1.73 square meters Kidney Failure: < 15 ml/min/1.73 square meters CALCIUM 10.4 8.5 - 10.5 mg/dL 11/16/2019 3:02 PM EST [facility] NA 140 135 - 145 mEq/L 11/16/2019 3:27 PM EST [facility] K 4.5 3.5 - 5.5 mmol/L 11/16/2019 3:27 PM EST [facility] CL 108 96 - 110 mmol/L 11/16/2019 3:27 PM EST [facility] CARBON DIOXIDE (CO2) 28 21 - 32 mmol/L 11/16/2019 3:27 PM EST [facility] ANION GAP 4 3 - 11 11/16/2019 3:27 PM EST [facility] 11/16/2019 11:2 6 AM EST 11/16/2019 11:26 AM EST Benito Diaz MD LAB [facility] documented in this encounter Visit Diagnoses Diagnosis Decreased GFR- Primary Nonspecific abnormal results of kidney function study documented in this encounter Care Teams Department Of Mathematics Chair Relationship Specialty Start Date End Date Benito Diaz MD PCP - General Internal Medicine 11/16/18 11/27/20 Connie Barros MD [address] [place], [place] [phone] PCP - General Internal Medicine 11/28/20 06/06/24 [facility], [facility] [address] [place] [address] PCP - General Internal Medicine 06/07/24 documented as of this encounter
--- OUTSIDE RECORDS SUMMARY | 2025-01-17 13:07 | XMS_ITS | Encounter Summary ---
Author Organization [facility] Address [address] [place] [address] Care Team Providers Care Balance Bridge Assembler Name Role Phone Connie Barros MD Primary Care Provider [phone] [phone] [facility], Pcp Primary Care Provider Unavailabl e Reason for Visit * Reason Comments E-prescribe Rx Request Encounter Details Date Type Department Care Team Description 12/03/2020 Refill Adult Medicine - [address] [address] Rhiannon Bolivar MD E-prescribe Rx Request Social [...] / [place] / Product Type: MEDICARE [id number] documented in this encounter Plan of Treatment Not on file documented as of this encounter Visit Diagnoses Not on filedocumented in this encounter Care Teams Balance Bridge Assembler Relationship Specialty Start Date End Date Connie Barros, [address] [place] [address] PCP - General Internal Medicine 11/28/20 06/06/24 [facility], Pcp [address] [place] [address] PCP - General Internal Medicine 06/07/24 documented as of this encounter
[2025-01-17 13:11] LABS: Creatinine, 24Hr Urine 0.9 G/Day (1.0-2.0); Sodium 24 Hr Urine 130.7 mmol/Day (40-220); Total Volume 24 Hour Urine 1675 mL
[2025-01-18 14:33] LABS: Calcium, Ionized 5.8 mg/dL (4.7-5.5)
[2025-01-18 14:47] LABS: Prot Elec - Albumin 4.4 g/dL (3.8-4.8); Prot Elec - Alpha1 0.2 g/dL (0.2-0.3); Prot Elec - Alpha2 0.9 g/dL (0.5-0.9); Prot Elec - Beta 1 0.6 g/dL (0.4-0.6); Prot Elec - Beta 2 0.6 g/dL (0.2-0.5); Prot Elec - Gamma 0.9 g/dL (0.8-1.7); Prot Elec - Total Protein 7.5 g/dL (6.1-8.1)
[2025-01-19 11:33] LABS: IgA 428 mg/dL (70-320); IgG 1083 mg/dL (600-1540); IgM 59 mg/dL (50-300)
[2025-02-01 09:16] LABS: Calcium/Creatinine Ratio 163
== END 2025-01-17 11:43 | disposition home or self-care (01) ==
LOC: HO.LAB 11:42
PROVIDERS: PCP Physician Assistant Medical; Visit Provider Student in an Organized Health Care Education/Training Program
DX: E83.52 Hypercalcemia (principal); K76.0 Fatty (change of) liver, not elsewhere classified; R79.89 Other specified abnormal findings of blood chemistry; E11.65 Type 2 diabetes mellitus with hyperglycemia; E78.2 Mixed hyperlipidemia; E66.811 Obesity, class 1; Z68.30 Body mass index [BMI] 30.0-30.9, adult
CPT/HCPCS: 36415; 82040; 82306; 82310; 82330; 82340; 82565; 82784; 83735; 83970; 84100; 84165; 84300; 86334; 99202

== ENCOUNTER 2025-01-17 12:07 | Outpatient (AMB) | payer MEDICARE, SELFPAY ==
--- NOTE | 2025-01-17 12:13 | MHC.OFFVIS ---
Vital Signs 01/17/25 12:14 Height 5 ft 5 in Weight 182 lb 15.739 oz BMI 30.4 BP 149/71 H Blood Pressure Location Lt brachial Position Sitting Pulse 85 Intake Visit Reasons: Fatty liver Intake Note: Eloisa presents in the office as a new patient for fatty liver. CC: She states that she is feeling good! [employer] Required: No Allergies diclofenac Allergy (Unknown, Verified 01/17/25 12:25) Unknown hydromorphone Allergy (Unknown, Verified 01/17/25 12:25) Nausea and Vomiting NSAIDS (Non-Steroidal Anti-Inflamma Allergy (Unknown, Verified 01/17/25 12:25) Diarrhea HPI Comments Details: 74 y.o F with PMH of HTN, HLD, T2DM who is here to establish care for elevated LFTs. Reports had this done as part of physical last year and at that time the transaminases were elevated. These have now improved. Hep serologies are engative. She also had US abd with elastography done as part of work up that showed steatosis without any fibrosis. Pt does not drink on a regular basis. Last drink > 1 year ago. Does have known DM and HLD. In Jun 2024 she was drinking a lot of sugar drinks to help keep her mouth moist and help break up sputum and mucus that she was spitting up due to asthma. A1c at that time was > 14 and LFTs had also spiked. Now with improvement of A1c her LFTs have also trended down. She herself does not have any abd pain, N,V, change in bowel habits. [facility] Medical History (Updated 01/30/25 @ 10:50 by Aubree Tolbert MD) Controlled type 2 diabetes mellitus Umbilical hernia Hepatic steatosis Serum calcium elevated Elevated LFTs Uncontrolled type 2 diabetes mellitus with hyperglycemia Ataxia Perennial allergic rhinitis Fracture of fifth metatarsal bone of right foot Mixed hyperlipidemia Essential hypertension Mild persistent asthma without complication Osteoarthritis Allergic rhinitis Diabetes HTN (hypertension) Surgical History Hx of tubal ligation History of appendectomy H/O shoulder replacement Family History Mother Stroke Father CKD (chronic kidney disease) Diabetes Sister Arthritis Social History Housing: House Alcohol intake: never Patient Tobacco Use Status: Never used Tobacco e-Cigarette/Vaping Use: Never Used service: Yes Current occupational status: retired Cognitive needs: No Hearing needs: No Vision needs: No Physical Exam Vital Signs: Last Vital Signs Pulse 85 01/17/25 12:14 BP 149/71 H 01/17/25 12:14 BMI result Body Mass Index 30.4 No apparent distress Nonicteric Abdomen soft, nondistended Alert and oriented x3, normal gait Assessment & Plan Assessment & Plan (1) Elevated LFTs: Code(s): R79.89 - Other specified abnormal findings of blood chemistry Category: Medical (2) Hepatic steatosis: Code(s): K76.0 - Fatty (change of) liver, not elsewhere classified Category: Medical (3) Uncontrolled type 2 diabetes mellitus with hyperglycemia: Code(s): E11.65 - Type 2 diabetes mellitus with hyperglycemia Category: Medical (4) Mixed hyperlipidemia: Code(s): E78.2 - Mixed hyperlipidemia Category: Medical (5) Obesity (BMI 30.0-34.9): Code(s): E66.811 - Obesity, class 1 Category: Medical Plan Reviewed with the patient that most likely had elevated LFT secondary to MAFLD/MASH based on clinical risk factors. Will order labs to complete chronic liver disease workup. She was congratulated on improve glycemic control and encouraged to continue the same. Will get an updated A1c. Plan: - Labs as below - 10% TBW loss in 6 months advised - At least 150 mins of moderate intensity exercise per week - Limited role of Vit E in non-biopsy proven MASH - Consider GLP-1 agonist for i) DM, ii) obesity and iii) MASH - pt encouraged to review this with PCP/security clerk at next visit - Fib 4 is 2.05 but elastography without advanced fibrosis. Can consider repeat elastography depending on results of updated labs Follow up 6-8 weeks Orders: Orders Comprehensive Met. Panel 4 Weeks - Other specified abnormal findings of blood chemistry Alpha 1 Anti-trypsin 4 Weeks - Other specified abnormal findings of blood chemistry Ceruloplasmin 4 Weeks - Other specified abnormal findings of blood chemistry Hepatitis A IgG 4 Weeks - Other specified abnormal findings of blood chemistry HIV Ab/Ag 4 Weeks - Other specified abnormal findings of blood chemistry IRON PROFILE 4 Weeks R7. - Other specified abnormal findings of blood chemistry Liver Kidney Microsomal Ab 4 Weeks R7. - Other specified abnormal findings of blood chemistry Prothrombin Time INR 4 Weeks R7. - Other specified abnormal findings of blood chemistry Smooth Muscle Antibody 4 Weeks R7. - Other specified abnormal findings of blood chemistry Complete Blood Count no Diff 4 Weeks . - Other specified abnormal findings of blood chemistry JOSELYN Reflex Titer and Pattern 4 Weeks . - Other specified abnormal findings of blood chemistry Ferritin 4 Weeks . - Other specified abnormal findings of blood chemistry Hemoglobin A1c 4 Weeks . - Other specified abnormal findings of blood chemistry Immunoglobulin A 4 Weeks . - Other specified abnormal findings of blood chemistry Immunoglobulin G 4 Weeks . - Other specified abnormal findings of blood chemistry Lipid Panel 4 Weeks . - Other specified abnormal findings of blood chemistry Mitochondrial Antibody 4 Weeks . - Other specified abnormal findings of blood chemistry Phosphatidylethanol, Blood 4 Weeks . - Other specified abnormal findings of blood chemistry Transglutaminase IgA 4 Weeks - Other specified abnormal findings of blood chemistry TSH reflex Free T4 4 Weeks . - Other specified abnormal findings of blood chemistry Coding Level of Care Code New Pt Level 4 (53761) Complex EM visit Add On G2211 Diagnoses Elevated LFTs R7. Hepatic steatosis K76.0 Uncontrolled type 2 diabetes mellitus with hyperglycemia E11.65 Mixed hyperlipidemia E78.2 Obesity (BMI 30.0-34.9) E66.811
[2025-01-17 12:14] VITALS: BP 149/71; PULSE 85; BMI 30.4
--- OUTSIDE RECORDS SUMMARY | 2025-01-17 13:23 | XMS_ITS | Encounter Summary ---
Author Organization [facility] Address [address] [place] [address] Care Team Providers Care Solutions Specialist Name Role Phone Connie Barros MD Primary Care Provider [phone] [facility], Pcp Primary Care Provider Unavailabl e Encounter Details Date Type Department Care Team Description 12/08/2020 Orders Only Medicine/Pediatrics - [address] [address] Benito Diaz MD Type 2 diabetes mellitus [...] > 60 01/20/2021 1:39 PM EDT [facility] Comment: If patient is -Mongolian, multiply result by 1.21 Chronic Kidney Disease: < 60 ml/min/1.73 square meters Kidney Failure: < 15 ml/min/1.73 square meters NA 137 135 - 145 mEq/L 01/20/2021 1:39 PM EDT [facility] K 4.4 3.5 - 5.5 mmol/L 01/20/2021 1:39 PM EDT [facility] CL 107 96 - 110 mmol/L 01/20/2021 1:39 PM EDT [facility] CARBON DIOXIDE (CO2) 24 21 - 32 mmol/L 01/20/2021 1:39 PM EDT [facility] ANION GAP 6 3 - 11 01/20/2021 1:39 PM EDT [facility] CALCIUM 9.6 8.5 - 10.5 mg/dL 01/20/2021 1:39 PM EDT [facility] Albumin 4.1 3.2 - 5.0 G/dL 01/20/2021 1:39 PM EDT [facility] BILIRUBIN TOTAL 0.3 0.0 - 1.4 mg/dL 01/20/2021 1:39 PM EDT [facility] SGOT 28 10 - 42 U/L 01/20/2021 1:39 PM EDT [facility] SGPT 39 10 - 60 U/L 01/20/2021 1:39 PM EDT [facility] TOTAL PROTEIN (TP) 7.6 6.0 - 8.0 G/dL 01/20/2021 1:44 PM EDT [facility] ALK PHOS 111 42 - 121 U/L 01/20/2021 1:44 PM EDT [facility] 01/20/2021 10:2 1 AM EDT 01/20/2021 10:22 AM EDT Benito Diaz MD LAB [facility] * (ABNORMAL) MICROALBUMIN/CREATININE, URINE (01/20/2021 10:21 AM EDT) CREATININE, RANDOM URINE 57 mg/dL 01/20/2021 1:55 PM EDT [facility] MICROALBUMIN, RANDOM 35.6(H) 0.0 - 29.0 mg/L 01/20/2021 2:09 PM EDT [facility] MICROALB/CRE RATIO RANDOM 62.4(H) 0.0 - 30.0 mg/G 01/20/2021 2:09 PM EDT [facility] 01/20/2021 10:2 1 AM EDT 01/20/2021 10:22 AM EDT Benito Diaz MD [facility] * (ABNORMAL) HEMOGLOBIN A1C (01/20/2021 10:21 AM EDT) GLYCATED HEMOGLOBIN A1C 7.0(H) <6.5 % 01/20/2021 1:36 PM EDT [facility] ESTIMATED AVERAGE GLUCOSE 154 mg/dL 01/20/2021 1:36 PM EDT [facility] 01/20/2021 10:2 1 AM EDT 01/20/2021 10:22 AM EDT Benito Diaz MD LAB [facility] documented in this encounter Visit Diagnoses Diagnosis Type 2 diabetes mellitus without complication, without long-term current use of insulin (HCC)- Primary documented in this encounter Care Teams Solutions Specialist Relationship Specialty Start Date End Date Connie Barros MD [address] [place] [address] PCP - General Internal Medicine 11/28/20 06/06/24 [facility], [facility] [address] [place] [address] PCP - General Internal Medicine 06/07/24 documented as of this encounter
--- OUTSIDE RECORDS SUMMARY | 2025-01-17 13:23 | XMS_ITS | Encounter Summary ---
Author Organization [facility] Address [address] [place] [address] Care Team Providers Care Utility System Repairer Name Role Phone Benito Diaz MD Primary Care Provider Monica Barros Ch MD Primary Care Provider [phone] [phone] [facility], Pcp Primary Care Provider Unavailabl e Encounter Details Date Type Department Care Team Description 05/01/2020 Orders Only Adult Medicine - [place] [address] [place] [address] Rhiannon Bolivar MD Social History Tobacco Use Types Packs/Day Years [...] on filedocumented in this encounter Care Teams Utility System Repairer Relationship Specialty Start Date End Date Benito Diaz MD PCP - General Internal Medicine 11/16/18 11/27/20 Connie Barros MD [address] [place] [address] PCP - General Internal Medicine 11/28/20 06/06/24 [facility], Pcp [address] [place] [address] PCP - General Internal Medicine 06/07/24 documented as of this encounter
--- OUTSIDE RECORDS SUMMARY | 2025-01-17 13:23 | XMS_ITS | Encounter Summary ---
Author Organization [facility] Address [address] [place] [address] Care Team Providers Care Conveyor Tender Concrete Mixing Plant Name Role Phone Connie Barros MD Primary Care Provider [phone] [facility], Pcp Primary Care Provider Unavailabl e Reason for Visit * Reason Comments E-prescribe Rx Request Encounter Details Date Type Department Care Team Description 04/30/2024 Refill Adult Medicine - [address] [address] Eligio Ceballos PA-C [address] [place] [id number] E-prescribe Rx Request Social History Tobacco Use [...] on filedocumented in this encounter Care Teams Conveyor Tender Concrete Mixing Plant Relationship Specialty Start Date End Date Connie Barros MD [address] [place] [address] PCP - General Internal Medicine 11/28/20 06/06/24 [facility], [facility] [address] [place] [address] PCP - General Internal Medicine 06/07/24 documented as of this encounter
--- OUTSIDE RECORDS SUMMARY | 2025-01-17 13:23 | XMS_ITS | Encounter Summary ---
Author Organization [employer] [facility] Address [address] [place] [address] Care Team Providers Care Investment Trader Name Role Phone Benito Diaz MD Primary Care Provider Monica Barros Ch MD Primary Care Provider [phone] -[phone] [facility], Pcp Primary Care Provider Unavailabl e Encounter Details Date Type Department Care Team Description 06/16/2019 Old Medical Records Medical Records [address] [place] [id number] Abstract, Provider Social History Tobacco Use Types Packs/Day Years [...] on filedocumented in this encounter Care Teams Investment Trader Relationship Specialty Start Date End Date Benito Diaz MD PCP - General Internal Medicine 11/16/18 11/27/20 Connie Barros MD [address] [place] [address] PCP - General Internal Medicine 11/28/20 06/06/24 [facility], Pcp [address] [place] [address] PCP - General Internal Medicine 06/07/24 documented as of this encounter
--- OUTSIDE RECORDS SUMMARY | 2025-01-17 13:23 | XMS_ITS | Encounter Summary ---
Author Organization [facility] Address [address] [place] [address] Care Team Providers Care Tag Stringer Name Role Phone Connie Barros MD Primary Care Provider [phone] [phone] [facility], Pcp Primary Care Provider Unavailabl e Encounter Details Date Type Department Care Team Description 11/01/2023 Pt. Non Urgent Medic al Question Adult Medicine - [place] [address] [place] [address] Connie Barros MD [address] [place] [address] Social History Tobacco Use Types Packs/Day Years [...] on filedocumented in this encounter Care Teams Tag Stringer Relationship Specialty Start Date End Date Connie Barros MD [address] [place] [address] PCP - General Internal Medicine 11/28/20 06/06/24 [facility], Pcp [address] [place] [address] PCP - General Internal Medicine 06/07/24 documented as of this encounter
== END 2025-01-17 13:35 | disposition home or self-care (01) ==
LOC: HO.HGI 12:08
PROVIDERS: PCP Physician Assistant Medical; Visit Provider Internal Medicine
DX: R79.89 Other specified abnormal findings of blood chemistry (principal); K76.0 Fatty (change of) liver, not elsewhere classified; E11.65 Type 2 diabetes mellitus with hyperglycemia; E78.2 Mixed hyperlipidemia; E66.811 Obesity, class 1
CPT/HCPCS: 99204; G2211

== ENCOUNTER 2025-02-08 14:54 | Outpatient (REF) | payer MEDICARE, SELFPAY ==
--- NOTE | ~2025-02-08 | US_ITS ---
EXAMINATION: US KIDNEY BILATERAL HISTORY: E83.52 - Hypercalcemia TECHNIQUE: Real-time grayscale ultrasound imaging of the kidneys was performed and images were reviewed. COMPARISON: Correlation is made with the right upper quadrant ultrasound dated 08/08/2024. FINDINGS: Right kidney: The right kidney measures 11.4 x 3.9 x 5.3 cm. Renal parenchymal echotexture and thickness are normal. There are no masses. There is an extrarenal pelvis. There is no hydronephrosis or renal calculi. Left Kidney: The left kidney measures 10.9 x 4.9 x 4.7 cm. Renal parenchymal echotexture and thickness are normal. There are multiple cysts, the largest of which is at the upper pole measuring 1.6 x 1.1 x 1.5 cm. There is a 6 x 4 x 10 mm calculus at the lower pole. There is no hydronephrosis. US/US renal BI IMPRESSION: 6 x 4 x 10 mm left lower pole renal calculus. No hydronephrosis. Left renal cysts as described. Electronically signed by: Jones Antonio MD 02/08/2025 03:24 PM EDT
--- OUTSIDE RECORDS SUMMARY | 2025-02-08 14:59 | XMS_ITS | Encounter Summary ---
Author Organization [email or web address] [facility] Address [address] [place] [address] Care Team Providers Care Aircraft Structural Repair Mechanic Name Role Phone Benito Diaz MD Primary Care Provider Monica Barros Ch MD Primary Care Provider [phone] [phone] [facility], Pcp Primary Care Provider Unavailabl e Encounter Details Date Type Department Care Team Description 06/16/2019 Old Medical Records Medical Records [address] [place] [id number] Abstract, Provider Social History Tobacco Use Types [...] on filedocumented in this encounter Care Teams Aircraft Structural Repair Mechanic Relationship Specialty Start Date End Date Benito Diaz MD PCP - General Internal Medicine 11/16/18 11/27/20 Connie Barros MD [address] [place] [address] PCP - General Internal Medicine 11/28/20 06/06/24 [facility], Pcp [address] [place] [address] PCP - General Internal Medicine 06/07/24 documented as of this encounter
== END 2025-02-08 14:55 | disposition home or self-care (01) ==
LOC: HO.US 14:54
PROVIDERS: PCP Physician Assistant Medical; Visit Provider Student in an Organized Health Care Education/Training Program
DX: E83.52 Hypercalcemia (principal)
CPT/HCPCS: 76775

== ENCOUNTER → 2025-02-08 14:55 | Outpatient (BNV) | payer MEDICARE, SELFPAY | PROVIDERS: PCP Physician Assistant Medical; Visit Provider Radiology Diagnostic Radiology | DX: N20.0 Calculus of kidney (principal); N28.1 Cyst of kidney, acquired | CPT/HCPCS: 76775 ==

== ENCOUNTER 2025-02-23 08:14 | Outpatient (AMB) | payer MEDICARE, SELFPAY ==
[2025-02-23 08:16] VITALS: BP 140/62; PULSE 68; O2SAT 98; BMI 32.1
--- NOTE | 2025-02-23 08:16 | A.OFFVIS_ITS ---
Vital Signs 3 02/23/25 08:16 Height 5 ft 5 in Weight 192 lb 10.944 oz BMI 32.1 BP 140/62 H Blood Pressure Location Rt brachial Position Sitting Pulse 68 Pulse Source Pulse Oximeter Pulse Oximetry (%) 98 Oxygen Delivery Method Room Air Intake Visit Reasons: Hypercalcemia Intake Note: Patient present today for Hypercalcemia office visit. Accompanied by: Self / Same As Patient Allergies diclofenac Allergy (Unknown, Verified 02/23/25 08:16) Unknown hydromorphone Allergy (Unknown, Verified 02/23/25 08:16) Nausea and Vomiting NSAIDS (Non-Steroidal Anti-Inflamma Allergy (Unknown, Verified 02/23/25 08:16) Diarrhea Medication List - Last Reconciled 02/23/25 by Emma Ahumada MD albuterol sulfate 90 mcg/actuation 2 puffs inhalation Q6H PRN Blood Glucose Test (blood sugar diagnostic) As directed to check blood glucose once daily. NS blood sugar diagnostic (FreeStyle Lite Strips) As directed to check glucose 1 time daily blood-glucose meter (FreeStyle Lite Meter kit) 1 times a day to check blood glucose for uncontolled diabetes type 2 11.9 blood-glucose sensor (FreeStyle Cherri 3 Sensor device) apply new sensor every 14 days blood-glucose,licensed embalmer,cont (FreeStyle Cherri 3 [place]) Use daily to monitor blood glucose levels continuously. cetirizine (Zyrtec) 10 mg PO DAILY PRN lancets (FreeStyle Lancets) Use to monitor blood glucose one time daily lisinopril 40 mg PO DAILY metformin ER 500 mg PO BID montelukast (Singulair) 10 mg PO BEDTIME multivitamin 1 tab PO DAILY omega-3 fatty acids 1,250 mg PO DAILY rosuvastatin 5 mg PO DAILY vitamin B complex-folic acid 50 mcg tabs PO HPI Comments Details: 74-year-old female here today for fup of hypercalcemia. Otherwise medical history HTN, DM type 2, HLD . HPI from initial visit Chart reviewed on and shows calcium level has been ranging between 10.8-11.2, with most recent levels from October 2024 with a calcium of 11.1, albumin of 4.5, corrected calcium would be 10.6. PTH from 11/10/2024 non suppressed at 57. No vitamin-D level. Kidney function from June 2024 with EGFR of 52, creatinine 1.03. CKD stage 3 forest[place] from HTN. 1,25 dihydroxy vitamin-D level from December 2024 normal. Bone density 05/26/2024: Normal bone density with T-score 2.2 at the spine, 0.4 at the total hip, 0.5 at the femoral neck and-0 point with a 1/3 forearm. No constipation, no abd pain, no muscle pains, has joint pain due to arthritis, denies memory issues or brain fog, no polyuria Fracture: 5th metatarsal, February 03, tripped on two steps, no other fractures. Kidney stones : in her 50s, passed a kidney stone, none recently. Milk: a mug daily, cheese most days, yogurt 4-5 times a day No family history of kidney problems or kidney stones supplements: b12, fish oil, multivitamin with calcium for over a year now switched multivitamin to something without calcium, was taking D3 with calcium for about 1-2 years, doesnt remember the dose now stopped Aug 2024. 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 Ultrasound of the kidneys done 02/08/2025 showed a 1 cm left lower pole renal calculus. No hydronephrosis. There are multiple cysts in the left kidney the largest at the upper pole measuring 1.6 cm. Physical exam General: sitting comfortably in no acute distress HEENT: normocephalic/atraumatic, Neck: supple Cardiac: normal heart sounds Pulm: normal breath sounds B/L, no added breath sounds Abd: not distended, no tenderness Extremities: no edema, no signs of myxedema Neuro: AAO x3, Speech: normal, no facial droop, moving all 4 extremities Laboratory Tests 07/13/24 09/19/24 11/10/24 12:48 10:59 10:33 Creatinine 1.03 Estimated GFR 52 Calcium 11.2 H 10.8 H 11.1 H Albumin 4.1 4.5 1,25 Dihydroxy Vit D 1,25 Dihydroxy Vit D2 1,25 Dihydroxy Vit D3 PTH Intact 57.0 12/18/24 10:52 Creatinine Estimated GFR Calcium Albumin 1,25 Dihydroxy Vit D 46 1,25 Dihydroxy Vit D2 <8 1,25 Dihydroxy Vit D3 46 PTH Intact Laboratory Tests 01/17/25 01/17/25 06:55 12:02 Creatinine 0.80 Estimated GFR > 60 Calcium 10.9 H Ionized Calcium 5.8 H Phosphorus 2.5 L Magnesium 1.9 Total Protein (PEP) 7.5 Albumin 4.6 Albumin (PEP) 4.4 Gqaoi-9-Lmqinuura 0.2 Cwsko-4-Rfnnrlekx 0.9 Omcu-7-Jaqwdhhm 0.6 Hpwf-2-Wmnfsscq 0.6 H Gamma Globulins 0.9 25-OH Vitamin D Total 63.1 PTH Intact 62.5 Ur 24 Hour Volume 1675 Ur Creatinine mg/dL 54.37 Ur Creatinine 24 Hour 0.9 L Ur Sodium 24 Hour 130.7 Calcium/Creat 24 Hr 163 IgG Total 1083 IgA Total 428 H IgM 59 EXAMINATION: US KIDNEY BILATERAL 02/08/25 HISTORY: E83.52 - Hypercalcemia TECHNIQUE: Real-time grayscale ultrasound imaging of the kidneys was performed and images were reviewed. COMPARISON: Correlation is made with the right upper quadrant ultrasound dated 08/08/2024. FINDINGS: Right kidney: The right kidney measures 11.4 x 3.9 x 5.3 cm. Renal parenchymal echotexture and thickness are normal. There are no masses. There is an extrarenal pelvis. There is no hydronephrosis or renal calculi. Left Kidney: The left kidney measures 10.9 x 4.9 x 4.7 cm. Renal parenchymal echotexture and thickness are normal. There are multiple cysts, the largest of which is at the upper pole measuring 1.6 x 1.1 x 1.5 cm. There is a 6 x 4 x 10 mm calculus at the lower pole. There is no hydronephrosis. US/US renal BI IMPRESSION: 6 x 4 x 10 mm left lower pole renal calculus. No hydronephrosis. Left renal cysts as described. Electronically signed by: Jones Antonio MD 02/08/2025 03:24 PM EDT [facility] Medical History Controlled type 2 diabetes mellitus Umbilical hernia Hepatic steatosis Serum calcium elevated Elevated LFTs Uncontrolled type 2 diabetes mellitus with hyperglycemia Ataxia Perennial allergic rhinitis Fracture of fifth metatarsal bone of right foot Mixed hyperlipidemia Essential hypertension Mild persistent asthma without complication Osteoarthritis Allergic rhinitis Diabetes HTN (hypertension) Surgical History Hx of tubal ligation History of appendectomy H/O shoulder replacement Family History Mother Stroke Father CKD (chronic kidney disease) Diabetes Sister Arthritis Social History Housing: House Alcohol intake: never Patient Tobacco Use Status: Never used Tobacco e-Cigarette/Vaping Use: Never Used service: Yes Current occupational status: retired Cognitive needs: No Hearing needs: No Vision needs: No Physical Exam Vital Signs: Last Vital Signs Pulse 68 02/23/25 08:16 BP 140/62 H 02/23/25 08:16 Pulse Ox 98 02/23/25 08:16 Oxygen Delivery Method Room Air 02/23/25 08:16 BMI result Body Mass Index 32.1 Assessment & Plan Assessment & Plan (1) Serum calcium elevated: Code(s): E83.52 - Hypercalcemia Category: Medical Plan: 74-year-old female coming in today for follow up of hypercalcemia. Chart reviewed on and shows calcium level has been ranging between 10.8-11.2, with most recent levels from October 2024 with a calcium of 11.1, albumin of 4.5, corrected calcium would be 10.6. PTH from 11/10/2024 non suppressed at 57. No vitamin-D level. Kidney function from June 2024 with EGFR of 52, creatinine 1.03. CKD stage 3 likley from HTN. 1,25 dihydroxy vitamin-D level from December 2024 normal. Given PTH is inappropriately normal, most likely differential is primary hyperparathyroidism, or fHH. Though given age of presentation, unlikely FHH. Labs done 01/17/2025 showed normal kidney function, calcium of 10.9, albumin of 4.6, corrected calcium would be 10.3, ionized calcium elevated at 5.8, phosphorus low at 2.5, magnesium of 1.9, normal serum protein electrophoresis and immunofixation, vitamin-D level of 63.1, PTH inappropriately normal at 62.5, 24 hour urine calcium could not be calculated appropriately because she reported 21 hours of collection but calcium creatinine ratio was normal at 163. I went back and forth with the lab regarding giving me the numbers for the calcium in the urine, however was unable to obtain, so could not calculate fractional excretion of calcium but that calcium creatinine ratio at least shows that she does not have hypercalciuria. Ultrasound of the kidneys done 02/08/2025 showed a 1 cm left lower pole renal calculus. No hydronephrosis. There are multiple cysts in the left kidney the largest at the upper pole measuring 1.6 cm. Given PTH is not suppressed, unlikely to be non PTH mediated hypercalcemia, usually in patients with hypercalcemia of malignancy, PTH is suppressed and calcium levels are much higher. She is also relatively healthy, has lost 35 lb with diet measures to control her diabetes but otherwise doing well. Normal serum immunofixation and electrophoresis ruled out MGUS/multiple myeloma. Again though in those cases PTH is usually suppressed. Granulomatous diseases which involve elevated 125 dihydroxy vitamin-D level, given her 125 dihydroxy vitamin- D level is normal, this is also not a differential. No long periods of immobilization. Does not seem like she was taking a lot of vitamin-D in excess or calcium supplementation. Normal vitamin-D level. She was on some amount of supplementation which she stopped in August 2024. TSH is normal from June 2024. Normal alkaline phosphatase. At this point I discussed with the patient that most recently her calcium levels are not that elevated as before, to keep up with good hydration. She does have this 1 tiny kidney stone, however not symptomatic and she has not had any bothersome kidney stones in many years so at this time we mutually agreed to continue to monitor this and hold off on surgical evaluation for now. I will see her back in 6 months with repeat 24 hour urine and blood work. She has greater than 50 years old. Bone density was normal from May 2024. The kidney function was previously likely low in the setting of long-term hypertension. Recently normal on most recent labs. Plan: -ordered blood work and 24 hour urine levels to be repeated prior to appointment in June 2025 -sent a message to PCP regarding renal cysts and informed the patient. -follow up in June 2025 -advised to maintain calcium intake in diet however no calcium supplements Plan see above Orders: Orders 2 Calcium, Ionized 06/13/25 E83.52 - Hypercalcemia Calcium, 24 Hr Ur 06/13/25 E83.52 - Hypercalcemia Creatinine 06/13/25 E83.52 - Hypercalcemia Albumin Level 06/13/25 E83.52 - Hypercalcemia Calcium 06/13/25 E83.52 - Hypercalcemia Phosphorus 06/13/25 E83.52 - Hypercalcemia Creatinine, 24 Hr Group 06/13/25 E83.52 - Hypercalcemia Vitamin D 25-OH Total 06/13/25 E83.52 - Hypercalcemia Parathyroid Hormone Intact 06/13/25 E83.52 - Hypercalcemia Patient Instructions: Do blood work the same morning as you hand in the urine 24 hr urine collection instructions You have been asked to collect your urine for 24 hours to assess for calcium excretion. You must choose a 24 hour period of time when you will be home. The morning of the first day, DISCARD the FIRST morning void and then note the time. You will collect every single void from then on for 24 hours. For example, if you wake up at 6am and urinate, flush down that void. You will then collect every drop of urine all day and all night through 6am the following day. You will urinate one last time at 6am for the collection. The jug of urine must be kept in the refrigerator until you bring it to the lab. do the above beginning of June 2025, follow in mid /end June 2025 Coding Level of Care Code Est Pt Level 3 (50926) Diagnoses Serum calcium elevated E83.52
--- OUTSIDE RECORDS SUMMARY | 2025-02-23 08:19 | XMS_ITS | Data Portability ---
Author Organization [place] - [facility] Address [address] [place] [address] Assessment No assessment recorded. Plan of Treatment Reminders Order Date Submit Date Provider Last Modified By Organization Details Last Modified Time Details Appointments None recorded. Lab None recorded. Referral None recorded. Procedures None recorded. Surgeries None recorded. Imaging None recorded. Medication Orders Advair Diskus 250 mcg-50 mcg/dose powder for inhalation 2023 024 JAQUELINE [id number], [address] [place], [address], 4 13:28:23 prednisone 50 mg tablet 2023 024 [email or web address] [id number], [address] [place], [address], 4 17:02:25 Patient TargetsNo targets recorded. Patient InstructionsNo instructions recorded. Reason for Referral None Reported. Problems Name Problem SNOMED Code Status Onset Date Resolution Date Notes Provider Name and Address Organization Details Recorded Time Hypertensive disorder 58724234 Active Vidhyaanna [place]irkland, [place] - [facility] 4 13:07:32 Asthma 246439150 Active Vidhya Suresh null, [place] - [facility] 4 13:07:59 Cough 59807508 Active 2023 Rodriguez Matthews, [facility] [place], [address] , [place] - [facility] 4 13:27:38 [...] Name and Address Organization Details Recorded Time 890810 diclofena c Not available dizziness Not available Not available 03/01/2024 3355 RxNorm Vidhya Prince isael [place] - [facility] 13:05:44 Medications Name Sig Start Date Stop [...] by Pulse oximetry Respiratory rate Heart rate Systolic blood pressure Diastolic blood pressure Provider Name and Address Organization Details Last Updated DateTime 4 165.1 cm 34.9 kg/m2 55506.4 g 97 [degF] 95 % 95 % 20 /min 81 /min 182 mm[Hg] 85 mm[Hg] Vidhya Prince [place] - [facility] 13:05:03 Social History Question Answer Notes LastModified by Organizat ion Details LastModified Time Tobacco Smoking Status Never Smoker Vidhya kirkland, [place] - [facility] 03/01/2024 13:08:57 What Was The Date Of Your Most Recent Tobacco Screening? 03/01/2024 Information not available 03/01/2024 What Is Your Relationship Status? Information not available 03/01/2024 Have You Recently Traveled Abroad? No Information not available 03/01/2024 Sex: Unknown Functional Status Question Answer Note LastModified by Organizat ion Details LastModified Time How many times per week do you consume alcohol? Less than 1 time per week Information not available 03/01/2024 Do you use any illicit or recreational drugs? No Information not available 03/01/2024 Do you or have you ever used any other forms of tobacco or nicotine? No Information not available 03/01/2024 What is your level of alcohol consumption? Occasional Information not available 03/01/2024 Mental Status None recorded. Family History Relationship [...] Influenza, adjuvanted, trivalent, PF 9 completed Vidhya kirkland, [place] - [facility] 03/01/2024 13:05:13 zoster recombinant 4 completed Vidhya kirkland, [place] - [facility] 03/01/2024 13:05:13 zoster [...] SNOMED-CT Code Diagnosis ICD10 Code Diagnosis Note [id number] [address] [address] [address] 08/12/2018 11:38:37 08/12/2018 12:24:36 [id number] [place] [address] [address] 03/01/2024 12:54:51 03/01/2024 13:30:24 Cough [id number] R05.9 See pcp in 3-4 days. Go [...] ID Guarantor Name 03/01/2024 1 [place] [employer] Eloisa Rivero [id number] Eloisa Rivero 03/01/2024 2 [place] [id number] Eloisa Rivero [id number] Eloisa Rivero Notes Date Note Type [...] Matthews DO [address] [place], [address], [place] - [facility] 03/01/2024 17:02:40 OBGyn Episode No OBEpisode recorded.
== END 2025-02-23 08:53 | disposition home or self-care (01) ==
LOC: HO.ENCR 08:14
PROVIDERS: PCP Physician Assistant Medical; Visit Provider Student in an Organized Health Care Education/Training Program
DX: E83.52 Hypercalcemia (principal)
CPT/HCPCS: 99213

== ENCOUNTER → 2025-02-23 08:14 | Outpatient (BNVA) | payer MEDICARE, SELFPAY | PROVIDERS: PCP Physician Assistant Medical; Visit Provider Student in an Organized Health Care Education/Training Program | DX: E83.52 Hypercalcemia (principal) | CPT/HCPCS: 99212 ==

== ENCOUNTER 2025-03-19 09:40 | Outpatient (AMB) | payer MEDICARE, SELFPAY ==
--- NOTE | 2025-03-19 09:55 | A.OFFVIS_ITS ---
Intake Visit Reasons: kidney stones and cysts Intake Note: New Patient presents for initial visit for kidney stones and cysts Urology Medications: none Blood Thinner: none Instruction Dean Required: No Accompanied by: Self / Same As Patient Allergies diclofenac Allergy (Unknown, Verified 03/19/25 09:56) Unknown hydromorphone Allergy (Unknown, Verified 03/19/25 09:56) Nausea and Vomiting NSAIDS (Non-Steroidal Anti-Inflamma Allergy (Unknown, Verified 03/19/25 09:56) Diarrhea HPI Comments Details: Eloisa is a 75-year-old female patient of Dr. Vinson. She has a past medical history of renal cysts, nephrolithiasis, type 2 diabetes, umbilical hernia, hepatic steatosis, elevated calcium levels, elevated LFTs, ataxia, allergic rhinitis, hyperlipidemia, hypertension, mild persistent asthma, and osteoarthritis. She presents to the office today as a new patient for renal cysts and nephrolithiasis. In discussion with the patient today she reports h atiliong followed up with endocrinology for her ongoing type 2 diabetes as well as hypercalcemia at which time a renal ultrasound was ordered and the patient was noted to have renal cysts and nephrolithiasis and she requested urology referral. These results were reviewed and communicated with the patient today. 02/04 bilateral kidneys are normal in echotexture and thickness. There are no right renal masses. There is an extrarenal pelvis. There is no hydronephrosis noted bilaterally. Left kidney with multiple cysts largest measuring 1.6 cm. There is a 6 x 4 x 10 mm calculus at the lower pole. When asked she reports a longstanding history of nephrolithiasis however never requiring surgical intervention. She reports previously following up with a urologist in the past however is unsure as to where she went. We did discussed at length potential causes of renal cysts as well as nephrolithiasis. We discussed further workup to include Litholink and labs however she discusses having had a recent 24 hour urine collection through endocrinology that she needs to repeat in June. She discusses her frustration regarding her collection and miscommunication. We discussed the importance of adequate hydration relation to nephrolithiasis. We discussed increase in hydration however she feels if she increases her hydration she will have issues with her incontinence. We briefly discussed treatment options for incontinence. She discusses at length her ongoing issues with her allergies, asthma, and her diabetes. All questions were answered to the best of my ability. We discussed further intervention of nephrolithiasis versus surveillance monitoring. Risks and benefits of these interventions were discussed. Will continue with surveillance monitoring at this time per patient request. She denies hematuria, dysuria, foul smelling urine, changes to urinary stream, flank pain, fever, and or chills. She is happy with her current voiding parameters. In office urinalysis results reviewed with the patient today pH 5.5. We did discussed importance of adequate hydration relation to nephrolithiasis as well as overall health and well-being. She otherwise offers no other issues or concerns at this time. [facility] Medical History Renal cyst Nephrolithiasis Controlled type 2 diabetes mellitus Umbilical hernia Hepatic steatosis Serum calcium elevated Elevated LFTs Uncontrolled type 2 diabetes mellitus with hyperglycemia Ataxia Perennial allergic rhinitis Fracture of fifth metatarsal bone of right foot Mixed hyperlipidemia Essential hypertension Mild persistent asthma without complication Osteoarthritis Allergic rhinitis Diabetes HTN (hypertension) Surgical History Hx of tubal ligation History of appendectomy H/O shoulder replacement Family History Mother Stroke Father CKD (chronic kidney disease) Diabetes Sister Arthritis Social History Housing: House Alcohol intake: never Patient Tobacco Use Status: Never used Tobacco e-Cigarette/Vaping Use: Never Used service: Yes Current occupational status: retired Cognitive needs: No Hearing needs: No Vision needs: No Review of Systems Eyes Reports no additional complaints ENT Reports as per HPI Card Reports as per HPI Resp Reports as per HPI GI Reports as per HPI Reports no additional complaints Musc Reports as per HPI Neuro Reports no additional complaints Psych Reports no additional complaints Endo Reports as per HPI Jose Guadalupe/Lymph Reports no additional complaints Aller/Immun Reports as per HPI Physical Exam Const General: cooperative, healthy appearing, comfortable, no acute distress, well developed, alert and awake Nutritional Appearance: overweight Orientation/consciousness: patient oriented x3 Limitations: no limitations HEENT Head: Yes normal to inspection, Yes normocephalic and Yes atraumatic Ears: hearing grossly normal bilaterally Eyes General: appearance normal, both eyes and all related structures Neck Neck: Yes normal visual inspection and Yes trachea midline Chest Chest palpation & inspection: normal inspection of the chest Resp Effort & Inspection: normal respiratory effort and able to speak in complete sentences Cardio Rate: regular rate GI Inspection: Yes normal to inspection General: Yes no CVA tenderness Back/Spine/Pelvis Back: no CVA tenderness Skin General skin exam: no rashes or lesions noted Neuro General: patient oriented x3 Extrem General: Yes normal to inspection Psych Appearance: grossly normal and well kempt Mental Status: mental status grossly normal Speech and movement: Normal speech and movement present and Clear speech present Affect: normal affect Attitude: cooperative Thought process: Normal thought process present Thought content: Normal thought content present Insight: Fair insight present (Psych) Judgement: Fair judgement present (Psych) Results AMB Urinalysis, Automated UA Leukoctes 0 Kai/uL Last Edit by Kayleen De La Rosa [facility] on 03/19/25 10:14 UA Nitrite [facility] on 03/19/25 10:14 UA Urobilinogen 0.2 mg/dL Last Edit by Kayleen De La Rosa [facility] on 03/19/25 10:1 4 UA Protein 0 mg/dL Last Edit [facility] on 03/19/25 10:14 UA pH 5.5 Last Edit by Kayleen De La Rosa [facility] on 03/19/25 10:14 UA Blood 0 Jair/uL [facility] Edit by [facility] on 03/19/25 10:14 UA Specific [place] 1.025 Last Edit by Kayleen De LaR osa [facility] on 03/19/25 10: 14 UA Ketone Negative Last Edit by Kayleen De La Rosa [facility] on 03/19/25 10:14 UA Bilirubin 0 mg/dL Last Edit by [facility] on 03/19/25 10:14 UA Glucose 0 mg/dL Last Edit by Kayleen De La Rosa [facility] on 03/19/25 10:14 Results Reviewed Results Reviewed: Laboratory Last Values Urine pH (Auto) 5.5 03/19/25 09:57 Specific [place] (Auto) 1.025 03/19/25 09:57 Urine Protein (Auto) 0 mg/dL 03/19/25 09:57 Glucose (UA)(Auto) 0 mg/dL 03/19/25 09:57 Urine Ketones (Auto) Negative 03/19/25 09:57 Urine Blood (Auto) 0 Jair/uL 03/19/25 09:57 Urine Bilirubin (Auto) 0 mg/dL 03/19/25 09:57 Urine Urobilinogen (Auto) 0.2 mg/dL 03/19/25 09:57 Leukocyte Esterase (Auto) 0 Kai/uL 03/19/25 09:57 Date of Service: 02/08/25 Procedure(s): US renal BI FINDINGS: Right kidney: The right kidney measures 11.4 x 3.9 x 5.3 cm. Renal parenchymal echotexture and thickness are normal. There are no masses. There is an extrarenal pelvis. There is no hydronephrosis or renal calculi. Left Kidney: The left kidney measures 10.9 x 4.9 x 4.7 cm. Renal parenchymal echotexture and thickness are normal. There are multiple cysts, the largest of which is at the upper pole measuring 1.6 x 1.1 x 1.5 cm. There is a 6 x 4 x 10 mm calculus at the lower pole. There is no hydronephrosis. IMPRESSION: 6 x 4 x 10 mm left lower pole renal calculus. No hydronephrosis. Left renal cysts as described. Assessment & Plan Assessment & Plan (1) Nephrolithiasis: Code(s): N20.0 - Calculus of kidney Category: Medical (2) Renal cyst: Code(s): N28.1 - Cyst of kidney, acquired Category: Medical (3) Incontinence: Code(s): R32 - Unspecified urinary incontinence Category: Medical Plan In office urinalysis results reviewed the patient today; as noted above. Recent renal imaging results reviewed with the patient today; as noted above. We discussed potential causes of nephrolithiasis as well as renal cysts and further intervention and risks and benefits of these interventions. Will continue with surveillance monitoring. We also discussed further workup to include Litholink and labs. She reports be happy with current voiding parameters. She currently denies any bothersome urinary issues or concerns. We discussed the importance of adequate hydration relation to nephrolithiasis well overall health and well-being. We also discussed the importance of management and diabetes for improvement in overall health and well-being. Will obtain renal ultrasound in 6 months. Follow-up in 6 months with renal ultrasound to be completed prior; or sooner with any issues, concerns, and or questions. Orders: Orders AMB Urinalysis Automated Today Z13.9 - Encounter for screening, unspecified US renal BI 6 Months N20.0 - Calculus of kidney, N28.1 - Cyst of kidney, acquired Patient Instructions: The patient had an opportunity to ask questions regarding the treatment plan. All questions were answered. Physical exam, labs, and imaging were discussed and reviewed in detail. As well as risks, benefits, and discussion of treatment choices. No major barriers to understanding were identified. The patient expressed understanding and agreement with the above treatment plan. The patient was made aware they should contact our office by phone for worsening of their current condition, the appearance of new symptoms, or with any questions or concerns. Compliance is encouraged with any medications and follow up testing that is ordered. It is a privilege to be allowed the opportunity to participate in? your urological care.? Again, if you have any questions or concerns If you have any questions or concerns please do not hesitate to contact me. The office is [phone]. This note is constructed using voice recognition software. While every effort has been made to ensure accuracy hydrography teacher errors may have been included. Yours sincerely, ELIZABETH Hale Coding Level of Care Code New Pt Level 4 (80531) Diagnoses Nephrolithiasis N20.0 Renal cyst N28.1 Incontinence R32 Time Spent (min) 45
--- OUTSIDE RECORDS SUMMARY | 2025-03-19 10:12 | XMS_ITS | Clinical Summary ---
Author Organization [facility] Address [address] [place] [address] Phone Care Team Providers Care Nutrition Services Worker Name Role Phone Reshma Vinson Primary Care Provider [phone] Allergies Active Allergy Reactions Criticality Noted Date Comments Atorvastatin 07/06/2019 Diclofenac Sodium 07/06/2019 Hydromorphone Nausea And Vomiting 07/27/2019 dizzy Hydromorphone Hcl 09/23/2022 Nsaids (Non-Steroidal Anti-Inflammatory Drug) Diarrhea,GI intolerance 04/25/2019 Other Wheezing,Runny nose 04/25/2019 Seasonal Allergies Animal dander house dust Medications rosuvastatin (CRESTOR) 5 mg tablet [...] Take 10 mg by mouth daily. Active metFORMIN XR (GLUCOPHAGE-XR) 500 mg 24 hr tablet Take 1 tablet (500 mg total) by mouth 2 (two) times a day. 11/01/19 25 Active Active Problems Problem Noted Date Diagnosed Date Umbilical hernia without obstruction or gangrene 01/23/2025 Cerebellar ataxia ([facility] V24, [facility] V28) Overview (09/22/2024): Dr Hastings- yearly, EMG 2006 Nrml, MRI 2006 Non specific findings Allergic rhinitis 04/25/2019 Asthma 04/25/2019 Diabetes mellitus type 2, un complicated ([facility] V24, [facility] V28) 04/25/2019 Hypercalcemia 04/25/2019 Overview (09/22/2024): She notes she was told this a long time ago, unclear details Hypertension 04/25/2019 Hypertriglyceridemia 04/25/2019 Osteoarthritis 04/25/2019 Overview (09/22/2024): Cervical Spine, Hands/thumbs/right shoulder/knees Encounters Date Type Department Care Team Description 01/23/2025 3:15 PM EDT Consult General Surgery - [address] [place] [id number] Rosa Ricardo MD Chronic cough (Primary Dx); Umbilical hernia without obstruction or gangrene from Last 3 Months Immunizations Name Administration Dates Next Due Influenza [...] HISTORICAL TUBAL LIGATION OTHER SURGICAL HISTORY PROCEDURE: NM TX ECTOPIC ABDOMINAL/VAGINAL APPR; COMMENT: removal of tube/ovary APPENDECTOMY PROCEDURE: HISTORICAL APPENDECTOMY OTHER SURGICAL HISTORY 06/08/2018 Right PROCEDURE: NM ARTHROPLASTY GLENOHUMERAL JOINT TOTAL SHOULDER; COMMENT: Dr Armen HART Medical History Medical History Date Comments H/O shoulder replacement 07/06/2019 DX:H/O shoulder replacement; COMMENT: 05/2018 Right Diabetes mellitus type 2, uncomplicated (CMS/HCC V24, CMS/HCC V28) 04/25/2019 DX:Diabetes mellitus type 2, uncomplicated (HCC) Allergic rhinitis 04/25/2019 DX:Allergic rh initis Cerebellar ataxia (CMS/HCC V 24, CMS/HCC V28) 07/06/2019 DX:Cerebellar ataxia (HCC); COMMENT: Dr Hastings- yearly, EMG 2006 Nrml, [...] on HD Father diabetes, heart issues , [place]? Stroke Mother Arthritis Sister Relation Name Status Comments Brother Daughter 1 Alive Daughter 2 Alive Daughter 3 Alive Father Mother Sister Son Alive Social History Tobacco Use Types Packs/Day Years Used Date Smoking Tobacco: Never Smokeless Tobacco: Never Alcohol Use Standard Drinks/Week Comments Not Currently 0 (1 standard drink = 0.6 oz pur e alcohol) Comments Unknown Sex and Gender Information Value Date Recorded Sex Assigned at Not on file Legal Sex Female 10:39 AM EST Gender Identity Not on file Sexual Orientation Not on file Obstetrics History Last Filed Vital Signs Vital Sign Reading Time Taken Comments Blood Pressure 169/82 01/23/2025 3:10 PM EDT Pulse 92 01/23/2025 3:10 PM EDT Temperature 37 C (98.6 F) 01/23/2025 3:10 PM EDT Respiratory Rate - - Oxygen Saturation - - Inhaled Oxygen Concentration - - Weight 85.6 kg (188 lb 12.8 oz) 01/23/2025 3:10 PM EDT Height 165.1 cm (5' 5 ) 01/23/2025 3:10 PM EDT Body Mass Index 31.42 01/23/2025 3:10 PM EDT Plan of Treatment Upcoming Encounters Date Type Department Care Team (Latest Contact Info) Description 05/24/2025 9:00 AM EDT Pre-Admission Testing [facility] Pre-Admission Testing [address] [place] [address] 05/31/2025 7:30 AM EDT Hospital Encounter [facility] Main OR [address] [place] [address] Rosa Ricardo MD [address] [address] 05/31/2025 7:30 AM EDT - 05/31/2025 9:00 AM EDT Surgery [facility] Main OR [address] [place] [address] Rosa Ricardo MD [address] [address] OPEN REPAIR UMBILICAL HERNIA W/MESH [[id number] (CPT )] 06/12/2025 10:45 AM EDT Office Visit General Surgery - [place] [address] [phone] Rosa Ricardo MD [address] [address] Scheduled Procedures Name Priority Associated Diagnoses Date/Ti me REPAIR HERNIA UMBILICAL Umbilical hernia without obstruction or gangrene 05/31/2025 7:30 AM EDT Health Maintenance Due Date Last Done Comments Diabetes: Annual Foot Exam 01/27/1960 Diabetes: Annual Retina Eye Exam 01/27/1960 Hepatitis A Vaccines (1 of 2 - Risk 2-dose series) 1969 Hepatitis B Vaccines (1 of 3 - Risk 3-dose series) 2010 Colorectal Cancer Screening: Colonoscopy 08/22/2022 Depression Screening 08/22/2022 Falls Risk Assessment 08/22/2022 Medicare Annual Wellness Visit 08/22/2022 Osteoporosis Screening (Bone Density Screening) 08/22/2022 Social Influencers of Health Screening 08/22/2022 Diabetes: Annual Urine Albumin-Creatinine Ratio (uACR) 03/02/2024 03/02/2023 Diabetes: Blood Sugar Control Test (HGBA1C) 03/03/2024 09/02/2023 Diabetes: Annual GFR (Glomerular Filtration Rate) 09/02/2024 09/02/2023 Hypertension/CHF/CAD Annual BMP Blood Test 09/02/2024 09/02/2023 COVID-19 Vaccine ( season) 2024 06/06/2024, 01/18/2024, 08/02/2023, Additional history exists RSV Immunization Adult Patients (1 - 1-dose 75+ series) 2025 08/02/2023 Influenza Vaccine (#1) 2025 , 08/21/2023, 08/21/2023, Additional history exists Cholesterol Screening (Lipid Panel) 09/02/2028 09/02/2023 DTaP,Tdap,and [...] this topic Hepatitis C Screening Completed 09/08/2023 Zoster Vaccines Completed 01/04/2024, 08/21/2023 HIB Vaccines Aged Out No longer eligi [...] C Screening (09/08/2023) Hepatitis C Screening abstracted Historical Provider HEALTH MAINTENANCE Final Result * Annual BMP Blood Test (09/02/2023) Annual BMP Blood Test abstracted Historical Provider HEALTH MAINTENANCE Final Result * (ABNORMAL) Hemoglobin A1c (09/02/2023) Hemoglobin A1C 6.8(A) <=6.5 % Blood Venous blood specimen / Unknown Historical Provider LAB BLOOD ORDERABLES Eneida l Result * (ABNORMAL) Lipid panel (09/02/2023) LDL/HDL Ratio 5(A) 0 - 4 Triglycerides 375(A) 0 - 150 mg/dL Cholesterol 206(A) 0 - 200 mg/dL HDL 43 >=40 mg/dL LDL Cholesterol 88 0 - 100 mg/dL Blood Venous blood specimen / Unknown Historical Provider LAB BLOOD ORDERABLES Eneida l Result * HM Urine Albumin Creatinine Ratio (03/02/2023) HM Urine Albumin Creatinine Ratio abstracted Historical Provider HEALTH MAINTENANCE Final Result from Last 3 Months or Most Recently Relevant to Health Maintenance Insurance MEDICARE [facility] Care Teams Nutrition Services Worker Relationship Specialty Start Date End Date Reshma Vinson PA [address] [place] [id number] PCP - General Physician Dopeman 01/09/25
--- OUTSIDE RECORDS SUMMARY | 2025-03-19 10:12 | XMS_ITS | Data Portability ---
Author Organization [facility] [id number] Address [address] [place] [address] Assessment No assessment recorded. Plan of Treatment Reminders Order Date Submit Date Provider Last Modified By Organization Details Last Modified Time Details Appointments None recorded. Lab None recorded. Referral None recorded. Procedures None recorded. Surgeries None recorded. Imaging None recorded. Medication Orders Advair Diskus 250 mcg-50 mcg/dose powder for inhalation 2023 024 JAQUELINE [id number], [address] [place], [address], 4 13:28:23 prednisone 50 mg tablet 2023 024 [email or web address] [id number], [address] [place], [address], 4 17:02:25 Patient TargetsNo targets recorded. Patient InstructionsNo instructions recorded. Reason for Referral None Reported. Problems Name Problem SNOMED Code Status Onset Date Resolution Date Notes Provider Name and Address Organization Details Recorded Time Hypertensive disorder 07694682 Active Vidhya Suresh null, PA - [facility] 4 13:07:32 Asthma 086867103 Active Vidhya Suresh null, PA - [facility] 4 13:07:59 Cough 43239579 Active 2023 Rodriguez Matthews, DO [address] [place], [address] , [place] - [facility] 4 13:27:38 [...] Name and Address Organization Details Recorded Time 087603 diclofena c Not available dizziness Not available Not available 03/01/2024 3355 [facility]Norm Vidhya kirkland PA - [facility] 4 13:05:44 Medications [...] Pulse oximetry Respiratory rate Heart rate Systolic And Diastolic Provider Name and Address Organization Details Last Updated DateTime 4 165.1 cm 34.9 kg/m2 28515.4 g 97 [degF] 95 % 95 % 20 /min 81 /min 182/85 mm[Hg] Vidhya Prince PA - [facility] 13:05:03 Social History Question Answer Notes LastModified by Organizat ion Details LastModified Time Tobacco Smoking Status Never Smoker Vdihya kirkland PA - [facility] 03/01/2024 13:08:57 [...] SNOMED-CT Code Diagnosis ICD10 Code Diagnosis Note [id number] [address] [phone] 08/12/2018 11:38:37 08/12/2018 12:24:36 [id number] [place] [address] [phone] 03/01/2024 12:54:51 03/01/2024 13:30:24 Cough 21952347 R05.9 See pcp in 3-4 days. Go [...] ID Guarantor Name 03/01/2024 1 [place] [employer] Eloisa Rivero [id number] Eloisa Rivero 03/01/2024 2 [place] [id number] Eloisa Rivero [id number] Eloisa Rivero Notes Date Note Type [...] Matthews DO [address] [place], [address], [place] - [facility] 03/01/2024 17:02:40 OBGyn Episode No OBEpisode recorded.
== END 2025-03-19 11:05 | disposition home or self-care (01) ==
LOC: HO.HUSH 09:41
PROVIDERS: PCP Physician Assistant Medical; Visit Provider Nurse Practitioner Family
DX: N20.0 Calculus of kidney (principal); N28.1 Cyst of kidney, acquired; R32 Unspecified urinary incontinence
CPT/HCPCS: 99204

== ENCOUNTER → 2025-03-19 09:40 | Outpatient (BNVA) | payer MEDICARE, SELFPAY | PROVIDERS: PCP Physician Assistant Medical; Visit Provider Nurse Practitioner Family | DX: N20.0 Calculus of kidney (principal); N28.1 Cyst of kidney, acquired; R32 Unspecified urinary incontinence | CPT/HCPCS: 81003; 99202 ==

== ENCOUNTER 2025-03-21 09:26 | Outpatient (AMB) | payer MEDICARE, SELFPAY ==
[2025-03-21 09:31] VITALS: BP 126/68; PULSE 71; O2SAT 99; BMI 31.9
--- NOTE | 2025-03-21 09:31 | A.OFFVIS_ITS ---
Vital Signs 03/21/25 09:31 Height 5 ft 5 in Weight 192 lb BMI 31.9 BP 126/68 Blood Pressure Location Rt brachial Position Sitting Pulse 71 Pulse Source Pulse Oximeter Pulse Oximetry (%) 99 Oxygen Delivery Method Room Air Intake Visit Reasons: Asthma Allergies diclofenac Allergy (Unknown, Verified 03/21/25 09:35) Unknown hydromorphone Allergy (Unknown, Verified 03/21/25 09:35) Nausea and Vomiting NSAIDS (Non-Steroidal Anti-Inflamma Allergy (Unknown, Verified 03/21/25 09:35) Diarrhea HPI HPI Asthma: Details: Eloisa is a pleasant 75 year old female, never smoker, with underlying asthma, HTN, HLD and DMII. She was referred by PCP for pulmonary evaluation with known history of asthma, never requiring intubation. She was diagnosed with asthma as an adult, around 1993, and has a history of allergy-induced asthma. Prior PFT 2023 revealed no obstructive or restrictive defect with significant response to bronchodilators in small to medium airways only. She has used various inhalers in the past, including Wixela and Arnuity Ellipta, which caused adverse effects such as mucus accumulation and altered taste, leading to discontinuation. Currently, she uses an albuterol rescue inhaler as needed, particularly during spring when symptoms worsen. She reports occasional wheezing, especially in the morning, and attributes some symptoms to her dog's shedding along with occasional dry cough and dyspnea. She does attribute dyspnea to deconditioning. She denies recent chest congestion, fever, or chills but notes a raspy voice and postnasal drip. She had allergy testing 20+ years ago and is interested in repeating. She endorses second hand smoke exposure as a child. Denies h/o recurrent respiratory infections. She denies any occupational exposures. She reports daughter with allergies, otherwise no pertinent family history. Of note, she has a hernia scheduled for surgical repair in May, which may be postponed if her asthma is not well-controlled. [facility] Medical History Renal cyst Nephrolithiasis Controlled type 2 diabetes mellitus Umbilical hernia Hepatic steatosis Serum calcium elevated Elevated LFTs Uncontrolled type 2 diabetes mellitus with hyperglycemia Ataxia Perennial allergic rhinitis Fracture of fifth metatarsal bone of right foot Mixed hyperlipidemia Essential hypertension Mild persistent asthma without complication Osteoarthritis Allergic rhinitis Diabetes HTN (hypertension) Surgical History Hx of tubal ligation History of appendectomy H/O shoulder replacement Family History Mother Stroke Father CKD (chronic kidney disease) Diabetes Sister Arthritis Social History Housing: House Alcohol intake: never Patient Tobacco Use Status: Never used Tobacco e-Cigarette/Vaping Use: Never Used service: Yes Current occupational status: retired Cognitive needs: No Hearing needs: No Vision needs: No Review of Systems Const Denies chills, Denies excessive sweating, Denies fever(s), Denies headache(s) and Denies night sweats Eyes Denies dry eyes, Denies irritation and Denies itchy eyes ENT Reports Normal hearing present, Denies headache(s), Denies nasal congestion, Denies nasal discharge and Denies sore throat Card Denies chest pain, Denies chest pain at rest, Denies chest pain with activity, Denies claudication, Denies leg edema, Denies orthopnea and Denies paroxysmal nocturnal dyspnea Resp Denies chest congestion, Denies excessive phlegm production, Denies pain on inspiration, Denies pain with cough and Denies stridor Musc Denies myalgias Neuro Reports Normal hearing present and Denies headache(s) Endo Denies excessive sweating Jose Guadalupe/Lymph Denies lymphadenopathy Aller/Immun Denies itchy eyes and Denies seasonal rhinorrhea Physical Exam Vital Signs: Last Vital Signs Pulse 71 03/21/25 09:31 BP 126/68 03/21/25 09:31 Pulse Ox 99 03/21/25 09:31 Oxygen Delivery Method Room Air 03/21/25 09:31 BMI result Body Mass Index 31.9 Const General: cooperative, healthy appearing, comfortable, no acute distress, well developed and alert Nutritional Appearance: obese Orientation/consciousness: patient oriented x3 Limitations: no limitations HEENT Head: Yes normal to inspection, Yes normocephalic and Yes atraumatic Ears: hearing grossly normal bilaterally and external ears normal Eyes General: appearance normal, both eyes and all related structures Eyelids: Yes eyelids normal Sclerae: sclerae normal EOM: EOMs intact bilaterally Neck Neck: Yes normal visual inspection and Yes no lymphadenopathy Lymphatic: no lymphadenopathy noted Chest Chest palpation & inspection: normal inspection of the chest Resp Effort & Inspection: normal respiratory effort, able to speak in complete sentences, no audible wheezes, no cough, no stridor, not tachypneic, no tripod positioning and no use of accessory muscles Auscultation: clear to auscultation bilaterally Cardio Jugular venous distension: no JVD Rate: regular rate Rhythm: regular rhythm Skin Other: warm, dry General skin exam: no rashes or lesions noted Neuro General: patient oriented x3 Cranial nerves: Yes Normal hearing present Cognition (Neuro): normal cognition Gait exam (Neuro): Normal gait present Extrem General: Yes normal to inspection, Yes capillary refill normal, Yes no clubbing, cyanosis or edema and Yes no pedal edema Psych Appearance: grossly normal and well kempt Speech and movement: Normal speech and movement present and Clear speech present Affect: normal affect Attitude: cooperative Thought process: Normal thought process present Thought content: Normal thought content present Insight: Good insight present (Psych) Judgement: Good judgement present (Psych) Assessment & Plan Assessment & Plan (1) Asthma: Code(s): J45.909 - Unspecified asthma, uncomplicated Category: Medical (2) Environmental allergies: Code(s): Z91.09 - Other allergy status, other than to drugs and biological substances Category: Medical Plan The patient will continue using albuterol as needed for asthma symptoms, particularly during spring when symptoms are more pronounced. A maintenance inhaler, Pulmicort, will be initiated four weeks prior to her scheduled hernia surgery to optimize lung function. In the event that Pulmicort is ineffective, Symbicort may be considered as an alternative. The patient is advised to return for follow-up in three months to reassess her asthma management and adjust treatment as necessary. Blood work, including a complete blood count and allergy panel, will be conducted to monitor her condition and identify any new allergens. All questions were answered and patient is in agreement of plan. Orders: Orders Resp Allergy Profile Region I Today Z91.09 - Other allergy status, other than to drugs and biological substances Immunoglobulin E Today Z91.09 - Other allergy status, other than to drugs and biological substances Complete Blood Count Auto Diff Today Z91.09 - Other allergy status, other than to drugs and biological substances Medications: New budesonide 90 mcg/actuation (Pulmicort Flexhaler) 1 inh inhalation BID 1 ea 3RF J45.30 - Mild persistent asthma, uncomplicated Coding Level of Care Code New Pt Level 4 (96025) Diagnoses Asthma J45.909 Environmental allergies Z91.09
--- OUTSIDE RECORDS SUMMARY | 2025-03-21 09:51 | XMS_ITS | Clinical Summary ---
Author Organization 175 [facility] Address [address] [place] [address] Phone Care Team Providers Care Buttonhole Facer Name Role Phone Reshma Vinson Primary Care Provider [phone] Allergies Active Allergy Reactions Criticality Noted Date [...] without obstruction or gangrene 01/23/2025 Cerebellar ataxia ([facility] V24, [facility] V28) Overview (09/22/2024): Dr Hastings- yearly, EMG 2006 Nrml, MRI 2006 Non specific findings Allergic rhinitis 04/25/2019 Asthma 04/25/2019 Diabetes mellitus type 2, un complicated ([facility] V24, [facility] V28) 04/25/2019 Hypercalcemia 04/25/2019 Overview (09/22/2024): She notes she was told this a long time ago, unclear details Hypertension 04/25/2019 Hypertriglyceridemia 04/25/2019 Osteoarthritis 04/25/2019 Overview (09/22/2024): Cervical Spine, Hands/thumbs/right shoulder/knees Encounters Date Type Department Care Team Description 01/23/2025 3:15 PM EDT Consult General Surgery - [address] [place] [phone] Rosa Ricardo MD Chronic cough (Primary [...] HISTORICAL TUBAL LIGATION OTHER SURGICAL HISTORY PROCEDURE: [place] ECTOPIC ABDOMINAL/VAGINAL APPR; COMMENT: removal of tube/ovary APPENDECTOMY PROCEDURE: HISTORICAL APPENDECTOMY OTHER SURGICAL HISTORY 06/08/2018 Right PROCEDURE: [place] ARTHROPLASTY GLENOHUMERAL JOINT TOTAL SHOULDER; COMMENT: Dr [...] on HD Father diabetes, heart issues , [place]? Stroke Mother Arthritis Sister Relation Name Status [...] Description 05/24/2025 9:00 AM EDT Pre-Admission Testing [facility] Pre-Admission Testing [address] [place] [address] 05/31/2025 7:30 AM EDT Hospital Encounter [facility] Main OR [address] [place] [address] Rosa Ricardo MD [address] [address] 05/31/2025 7:30 AM EDT - 05/31/2025 9:00 AM EDT Surgery [facility] Main OR [address] [place] [address] Rosa Ricardo MD [address] [address] OPEN REPAIR UMBILICAL HERNIA W/MESH [90114 (CPT )] 06/12/2025 10:45 AM EDT Office Visit General Surgery - [place] [address] [phone] Rosa Ricardo MD [address] [address] Scheduled Procedures Name Priority Associated Diagnoses Date/Ti [...] Recently Relevant to Health Maintenance Insurance MEDICARE [facility] Care Teams Buttonhole Facer Relationship Specialty Start Date End Date Reshma Vinson PA [address] [place] [id number] PCP - General Physician [employer] Dean 01/09/25
--- OUTSIDE RECORDS SUMMARY | 2025-03-21 09:51 | XMS_ITS | Data Portability ---
Author Organization [facility] [address] Address [address] [place] [address] Assessment No assessment recorded. Plan of Treatment Reminders Order Date Submit Date Provider Last Modified By Organization Details Last Modified Time Details Appointments None recorded. Lab None recorded. Referral None recorded. Procedures None recorded. Surgeries None recorded. Imaging None recorded. Medication Orders Advair Diskus 250 mcg-50 mcg/dose powder for inhalation 2023 024 [facility]acy #[id number], [address] [place], [address], 4 13:28:23 prednisone 50 mg tablet 2023 024 [email or web address] [facility]/Pharmacy #[id number], [address] [place], [address], 4 17:02:25 Patient TargetsNo targets recorded. Patient InstructionsNo instructions recorded. Reason for Referral None Reported. Problems Name Problem SNOMED Code Status Onset Date Resolution Date Notes Provider Name and Address Organization Details Recorded Time Hypertensive disorder 66031481 Active Vidhya Suresh null, [place] - [facility] 4 13:07:32 Asthma 998511901 Active Vidhya Suresh null, [place] - [facility] 4 13:07:59 Cough 00747569 Active 2023 Rodriguez Matthews, DO [address] [place], [address] , [place] - [facility] 4 13:27:38 [...] Name and Address Organization Details Recorded Time 637072 diclofena c Not available dizziness Not available [...] Updated DateTime 4 165.1 cm 34.9 kg/m2 15423.4 g 97 [degF] 95 % 95 % [...] SNOMED-CT Code Diagnosis ICD10 Code Diagnosis Note [id number] [facility] [address] [address] 08/12/2018 11:38:37 08/12/2018 12:24:36 [id number] Rodriguez Matthews [place] [address] [address] 03/01/2024 12:54:51 03/01/2024 13:30:24 Cough [id number] R05.9 See pcp in 3-4 days. Go [...] ID Guarantor Name 03/01/2024 1 [place] [employer] Eloisa Rivero [id number] Eloisa Rivero 03/01/2024 2 [place] [id number] Eloisa Rivero [id number] Eloisa Rivero Notes Date Note Type [...] Matthews DO [address] [place], [address], [place] - [facility] 03/01/2024 17:02:40 OBGyn Episode No OBEpisode recorded.
== END 2025-03-21 10:08 | disposition home or self-care (01) ==
LOC: HO.HPSW 09:28
PROVIDERS: PCP Physician Assistant Medical; Referring Provider Physician Assistant Medical; Visit Provider Nurse Practitioner Family
DX: J45.909 Unspecified asthma, uncomplicated (principal); Z91.09 Other allergy status, other than to drugs and biological substances
CPT/HCPCS: 99204

== ENCOUNTER → 2025-03-21 09:26 | Outpatient (BNVA) | payer MEDICARE, SELFPAY | PROVIDERS: PCP Physician Assistant Medical; Referring Provider Physician Assistant Medical; Visit Provider Nurse Practitioner Family | DX: Z91.09 Other allergy status, other than to drugs and biological substances (principal); J45.30 Mild persistent asthma, uncomplicated; Z79.51 Long term (current) use of inhaled steroids | CPT/HCPCS: 99202 ==

== ENCOUNTER 2025-03-22 10:20 | Outpatient (REF) | payer MEDICARE, SELFPAY ==
--- OUTSIDE RECORDS SUMMARY | 2025-03-22 11:02 | XMS_ITS | Encounter Summary ---
Author Organization [facility] Address [address] [place] [address] Care Team Providers Care Automobile Inspector Name Role Phone Benito Diaz MD Primary Care Provider Monica Barros Ch MD Primary Care Provider [phone] [facility] Pcp Primary Care Provider Unavailabl e Encounter Details Date Type Department Care Team Description 06/16/2019 Old Medical Records Medical Records [address] [place] [address] Abstract, Provider Social History Tobacco Use Types [...] filedocumented in this encounter Care Teams Automobile Inspector Relationship Specialty Start Date End Date Benito Diaz MD PCP - General Internal Medicine 11/16/18 11/27/20 Connie Barros MD [address] [place] [address] PCP - General Internal Medicine 11/28/20 06/06/24 [facility], Pcp [address] [place] [address] PCP - General Internal Medicine 06/07/24 documented as of this encounter
--- OUTSIDE RECORDS SUMMARY | 2025-03-22 11:02 | XMS_ITS | Data Portability ---
Author Organization [facility] [address] Address [address] [place] [address] Assessment No assessment recorded. Plan of Treatment Reminders Order Date Submit Date Provider Last Modified By Organization Details Last Modified Time Details Appointments None recorded. Lab None recorded. Referral None recorded. Procedures None recorded. Surgeries None recorded. Imaging None recorded. Medication Orders Advair Diskus 250 mcg-50 mcg/dose powder for inhalation 2023 024 JAQUELINE [facility]/Pharmacy #[id number], [address] [place], [address], 4 13:28:23 prednisone 50 mg tablet 2023 024 [email or web address] [facility]arm[facility] #[id number], [address] [place], [address], 4 17:02:25 Patient TargetsNo targets recorded. Patient InstructionsNo instructions recorded. Reason for Referral None Reported. Problems Name Problem SNOMED Code Status Onset Date Resolution Date Notes Provider Name and Address Organization Details Recorded Time Hypertensive disorder 38696910 Active Vidhya Suresh null, [place] - [facility] 4 13:07:32 Asthma 668921594 Active Vidhya Suresh null, [place] - [facility] 4 13:07:59 Cough 34393801 Active 2023 Rodriguez Matthews, DO [address] [place], [address] , [place] - [facility] 4 13:27:38 [...] Name and Address Organization Details Recorded Time 053117 diclofena c Not available dizziness Not available [...] Updated DateTime 4 165.1 cm 34.9 kg/m2 92111.4 g 97 [degF] 95 % 95 % [...] SNOMED-CT Code Diagnosis ICD10 Code Diagnosis Note [id number] [address]_[facility] [address] [address] 08/12/2018 11:38:37 08/12/2018 12:24:36 [id number] Rodriguez [place] [address] [address] 03/01/2024 12:54:51 03/01/2024 13:30:24 Cough [id number] R05.9 See pcp in 3-4 days. Go [...] ID Guarantor Name 03/01/2024 1 [place] [employer] Eloisa Rivero [id number] Eloisa Rivero 03/01/2024 2 [place]) [id number] Eloisa Rivero [id number] Eloisa Rivero Notes Date Note Type [...] Matthews DO [address] [place], [address], [place] - [facility] 03/01/2024 17:02:40 OBGyn Episode No OBEpisode recorded.
--- OUTSIDE RECORDS SUMMARY | 2025-03-22 11:02 | XMS_ITS | Clinical Summary ---
Author Organization 175 [facility] Address [address] [place] [address] Phone Care Team Providers Care Cheese Production Supervisor Name Role Phone Reshma Vinson Primary Care Provider [phone] Allergies Active Allergy Reactions Criticality Noted Date [...] without obstruction or gangrene 01/23/2025 Cerebellar ataxia ([facility] V24, [facility] V28) Overview (09/22/2024): Dr Hastings- yearly, EMG 2006 Nrml, MRI 2006 Non specific findings Allergic rhinitis 04/25/2019 Asthma 04/25/2019 Diabetes mellitus type 2, un complicated ([facility] V24, [facility] V28) 04/25/2019 Hypercalcemia 04/25/2019 Overview (09/22/2024): She notes she was told this a long time ago, unclear details Hypertension 04/25/2019 Hypertriglyceridemia 04/25/2019 Osteoarthritis 04/25/2019 Overview (09/22/2024): Cervical Spine, Hands/thumbs/right shoulder/knees Encounters Date Type Department Care Team Description 01/23/2025 3:15 PM EDT Consult General Surgery - [address] [place] [phone] Rosa Ricardo MD Chronic cough (Primary [...] HISTORICAL TUBAL LIGATION OTHER SURGICAL HISTORY PROCEDURE: [place] ECTOPIC ABDOMINAL/VAGINAL APPR; COMMENT: removal of tube/ovary APPENDECTOMY PROCEDURE: HISTORICAL APPENDECTOMY OTHER SURGICAL HISTORY 06/08/2018 Right PROCEDURE: [place] ARTHROPLASTY GLENOHUMERAL JOINT TOTAL SHOULDER; COMMENT: Dr [...] on HD Father diabetes, heart issues , [place]? Stroke Mother Arthritis Sister [...] Description 05/24/2025 9:00 AM EDT Pre-Admission Testing [facility] Pre-Admission Testing [address] [place] [address] 05/31/2025 7:30 AM EDT Hospital Encounter [facility] Main OR [address] [place] [address] Rosa Ricardo MD [address] [address] 05/31/2025 7:30 AM EDT - 05/31/2025 9:00 AM EDT Surgery [facility] Main OR [address] [place] [address] Rosa Ricardo MD [address] [address] OPEN REPAIR UMBILICAL HERNIA W/MESH [92705 (CPT )] 06/12/2025 10:45 AM EDT Office Visit General Surgery - [place] [address] [phone] Rosa Ricardo MD [address] [address] Scheduled Procedures Name Priority Associated Diagnoses Date/Ti [...] Relevant to Health Maintenance Insurance MEDICARE [facility] Care Teams Cheese Production Supervisor Relationship Specialty Start Date End Date Reshma Vinson PA [address] [place] [address] PCP - General Physician Hairspring Ii Inspector 01/09/25
[2025-03-22 16:08] LABS: MANUAL DIFF FLAG NO
[2025-03-22 16:28] LABS: Hematocrit 38.6 % (37.0-47.0); Hemoglobin 12.4 g/dl (12.0-16.0); Imm Gran Abs Auto 0.01 X10*3/uL (0.00-0.03); Imm Gran Pct Auto 0.1 % (0.0-0.4); Lymphocytes Absolute Auto 2.6 X10*3/uL (1.2-4.9); Mean Corpuscular HGB Conc 32.1 g/dl (31.0-35.0); Mean Corpuscular Hemoglobin 30.2 pg (27.0-33.0); Mean Corpuscular Volume 94.1 fL (80.0-98.0); NRBC Abs Auto 0.000 X10*3/uL (0.0-0.012); NRBC Pct Auto 0.0 /100WBC (0.0-0.2); Platelet Count 257 X10*3/uL (160-400); Red Blood Count 4.10 X10*6/uL (4.20-5.50); White Blood Count 6.8 X10*3/uL (4.8-10.8)
[2025-03-22 16:31] LABS: INTERNATIONAL NORM RATIO 0.9 (0.9-1.1); Prothrombin Time 10.5 SEC (10.9-12.4)
[2025-03-22 16:54] LABS: Alanine Aminotransferase 28 U/L (0-31); Albumin Level 4.7 g/dL (3.5-5.0); Alkaline Phosphatase 71 U/L (39-117); Anion Gap 12 (12-20); Aspartate Amino Transferase 38 U/L (5-31); Blood Urea Nitrogen 28 mg/dL (9-16); Calcium 10.6 mg/dL (8.4-10.2); Carbon Dioxide 27 mmol/L (22-29); Chloride 106 mmol/L (96-108); Cholesterol 175 mg/dL (<200); Estimated Glomerular Filt Rate > 60; HDL Cholesterol 41 mg/dL (>40); Hemoglobin A1C 212.1027 umol/L; Iron 60 mcg/dL (30-160); Percent Iron Saturation 18 % (15-50); Potassium 4.4 mmol/L (3.3-5.1); Sodium 141 mmol/L (135-145); Total Hemoglobin (HGBA1C) 4675.7855 umol/L; Total Iron Binding Capacity 327 mcg/dL (228-428); Total Protein 7.7 g/dL (6.5-8.0); Triglycerides 184 mg/dL (<150); Unsaturated Iron Binding 267 ug/dL
[2025-03-22 16:57] LABS: Hemoglobin A1C 221.8358 umol/L; Total Hemoglobin (HGBA1C) 4801.4814 umol/L
[2025-03-22 16:58] LABS: Ferritin 204 ng/mL (10-250)
[2025-03-22 17:11] LABS: Vitamin B12 1111 pg/mL (200-900)
[2025-03-23 08:09] LABS: ~Hepatitis A Antibody IgG 0.30 S/CO (0.00-0.99)
[2025-03-23 08:14] LABS: HIV Num 1 0.05 S/CO (0.00-0.99)
[2025-03-23 17:04] LABS: Immunoglobulin A 425 mg/dL (70-320); Immunoglobulin G 1052 mg/dL (600-1540)
[2025-03-26 17:59] LABS: Class Alternaria alternata 0; Class Aspergillus fumigatus 0; Class Bermuda Grass 0/1; Class Birch 3; Class Cat Dander 2; Class Cladosporium herbarum 0; Class Cockroach 0/1; Class Common Ragweed 0/1; Class Cottonwood 2; Class Derm. pterony 3; Class Dermatophagoides farinae 3; Class Dog Dander 2; Class Elm 1; Class Maple Box Elder 1; Class Mountain Cedar 0; Class Mouse Urine Protein 0; Class Mugwort 0; Class Oak 3; Class Penicillium crysogenum 0; Class Rough Pigweed 0; Class Sheep Sorrel 0; Class Sycamore 1; Class Timothy Grass 2; Class Walnut Tree 2; Class White Ash 0/1; Class White Mulberry 0; D002 - IgE D farinae 4.93 kU/L; E001 - IgE Cat Dander 1.27 kU/L; E005 - IgE Dog Dander 2.11 kU/L; G006 - IgE Timothy Grass 0.98 kU/L; I006-IgE Cockroach, German 0.11 kU/L; M002 - IgE Cladosporium herbar <0.10 kU/L; M003 - IgE Aspergillus fumigat <0.10 kU/L; M006 - IgE Alternaria alternat <0.10 kU/L; T001 IgE Maple/Box Elder 0.35 kU/L; T006 - IgE Cedar, Mountain <0.10 kU/L; T007 - IgE Oak, White 3.54 kU/L; T008 IgE Elm, American 0.52 kU/L; T010 - IgE Walnut 2.60 kU/L; T011 - IgE Maple Leaf Sycamore 0.52 kU/L; T014 - IgE Cottonwood 0.89 kU/L; T015 - IgE Ash, White 0.15 kU/L; T070 - IgE White Mulberry <0.10 kU/L; W001 - IgE Ragweed, Short 0.30 kU/L; W006 - IgE Mugwort <0.10 kU/L; W014 IgE Pigweed, Common <0.10 kU/L; W018 IgE Sheep Sorrel <0.10 kU/L
[2025-03-27 09:09] LABS: Liver Kidney Microsomal Ab <=20.0 U (<=20.0)
[2025-03-27 10:55] LABS: Phosphatidylethanol 16:0-18:1 NEGATIVE; Phosphatidylethanol 16:0-18:2 NEGATIVE
[2025-03-28 20:44] LABS: Anti Nuclear Antibody Screen POSITIVE (NEGATIVE); Anti Nuclear Antibody Titer 1:80 titer
== END 2025-03-22 10:21 | disposition home or self-care (01) ==
LOC: HO.WFDLDS 10:20
PROVIDERS: Nurse Practitioner Family; Referring Provider Physician Assistant Medical; Visit Provider Internal Medicine
DX: E11.9 Type 2 diabetes mellitus without complications (principal); Z91.89 Other specified personal risk factors, not elsewhere classified; Z91.09 Other allergy status, other than to drugs and biological substances; R79.89 Other specified abnormal findings of blood chemistry
CPT/HCPCS: 36415; 80053; 80061; 80321; 82103; 82390; 82607; 82728; 82784; 82785; 83036; 83540; 84443; 85025; 85610; 86003; 86015; 86038; 86039; 86364; 86376; 86381; 86708; 87389

== ENCOUNTER 2025-04-11 08:17 | Outpatient (AMB) | payer MEDICARE, SELFPAY ==
--- NOTE | 2025-04-11 08:21 | A.OFFVIS_ITS ---
Vital Signs 04/11/25 08:29 Height 5 ft 5 in Weight 189 lb 9.561 oz BMI 31.5 BP 122/78 Blood Pressure Location Rt brachial Position Sitting Pulse 83 Pulse Source Pulse Oximeter Pulse Oximetry (%) 96 Oxygen Delivery Method Room Air Intake Visit Reasons: T2DM Intake Note: Patient presents here today for a follow-up on Type 2 Diabetes Mellitus: Last Diabetic eye exam was on: 06/13/2024 Last Podiatry exam was on: Does not see a Ui Application Developer Most recent HbA1c: 6.4%, 03/22/2025 Random Glucose- 164 mg/dL, Today Captain Of Guards Required: No Accompanied by: Self / Same As Patient Allergies diclofenac Allergy (Unknown, Verified 04/11/25 08:22) Unknown hydromorphone Allergy (Unknown, Verified 04/11/25 08:22) Nausea and Vomiting NSAIDS (Non-Steroidal Anti-Inflamma Allergy (Unknown, Verified 04/11/25 08:22) Diarrhea HPI Comments Details: 75 year old female who is seen in f/u for type 2 diabetes. She follows with Dr Ahumada for hypercalcemia and will have follow up in Oct. Initially diagnosed with T2DM diagnosed at age 70 pre diabetic for many years Was initially started on treatment with diet and exercise Current regimen: metformin ER 500 mg daily Reports feeling low sugars: none Glucometer readings checks once daily. A1C last month improved to 6.4%. She was over 14% 06/2024 Family history of T2DM in father, brother Has eyes checked yearly, last eye exam June 2024, Denies retinopathy. Denies neuropathy No podiatry No tingling, cramping, pain or cramping in the lower extremities. Has nephropathy, on ANGELA. 07/12/24 microalbumin 62.0 eGFR 52 Has HLD, on statin. Last LDL 85 as measured on 07/12/2024. Diet: Following a much more balanced diet. Breakfast: Muffin with no flower made with a oatmeal, apple sauce or banana. Lunch: salad with protein Supper: Balanced meal Weight: stable since visit in January No prior diabetes education. [facility] screen Fibrosis-4 (Fib-4) Index for liver fibrosis (calculated on lab work done:07/12/24 ) 3.06 points Advanced fibrosis Metavir stage F3 to F4 Approximate Fibrosis stage Elin 2-3 Saw GI ROS CONSTITUTIONAL: Denies weight loss, fever and chills. HEENT: Denies changes in vision and hearing. RESPIRATORY: Denies SOB and cough. CV: Denies palpitations and CP GI: Denies abdominal pain, nausea, vomiting and diarrhea. : Denies dysuria and urinary frequency. MSK: Denies new myalgia and joint pain. SKIN: Denies rash and pruritus. NEUROLOGICAL: Denies headache PSYCHIATRIC: Denies recent changes in mood. PHYSICAL EXAM: GENERAL: Alert and oriented x 3. NAD EYES: EOMI. Anicteric. HENT: Moist mucous membranes. No scleral icterus. No cervical lymphadenopathy. LUNGS: Clear to auscultation bilaterally. CARDIOVASCULAR: Regular rate and rhythm. No murmur. No JVD. ABDOMEN: Soft, non-tender +bs EXTREMITIES: No edema. Non-tender. SKIN: No rashes or lesions. Warm. NEUROLOGIC: No focal neurological deficits. CN II-XII grossly intact PSYCHIATRIC: Cooperative. Appropriate mood and affect [facility] Medical History Renal cyst Nephrolithiasis Controlled type 2 diabetes mellitus Umbilical hernia Hepatic steatosis Serum calcium elevated Elevated LFTs Uncontrolled type 2 diabetes mellitus with hyperglycemia Ataxia Perennial allergic rhinitis Fracture of fifth metatarsal bone of right foot Mixed hyperlipidemia Essential hypertension Mild persistent asthma without complication Osteoarthritis Allergic rhinitis Diabetes HTN (hypertension) Surgical History Hx of tubal ligation History of appendectomy H/O shoulder replacement Family History Mother Stroke Father CKD (chronic kidney disease) Diabetes Sister Arthritis Social History Housing: House Alcohol intake: never Patient Tobacco Use Status: Never used Tobacco e-Cigarette/Vaping Use: Never Used service: Yes Current occupational status: retired Cognitive needs: No Hearing needs: No Vision needs: No Physical Exam Vital Signs: Last Vital Signs Pulse 83 04/11/25 08:29 BP 122/78 04/11/25 08:29 Pulse Ox 96 04/11/25 08:29 Oxygen Delivery Method Room Air 04/11/25 08:29 BMI result Body Mass Index 31.5 Results Reviewed Results Reviewed: Laboratory Last Values Glucose (Clinic) 164 mg/dL (60-115) H 04/11/25 08:33 Assessment & Plan Assessment & Plan (1) Controlled type 2 diabetes mellitus: Code(s): E11.9 - Type 2 diabetes mellitus without complications Category: Medical Plan Diabetes is well controlled Patient would like trial off the metformin 500mg daily. This is reasonable. She will stop now and have A1C prior to her appt with PCP in Jun. No follow up needed here for diabetes if A1C is stable Continue dietary modifications, efforts toward weight loss She will continue annual eye exams. Orders: Orders Hemoglobin A1c 2 Months E11.65 - Type 2 diabetes mellitus with hyperglycemia Lipid Panel 2 Months E11.65 - Type 2 diabetes mellitus with hyperglycemia Comprehensive Met. Panel 2 Months E11.65 - Type 2 diabetes mellitus with hyperglycemia Medications: Discontinued metformin ER Discontinued Reason: Doctor's Order 500 mg PO BID 180 tabs 0RF Coding Level of Care Code Est Pt Level 4 (94074) Complex EM visit Add On G2211 Diagnoses Controlled type 2 diabetes mellitus E11.9
--- OUTSIDE RECORDS SUMMARY | 2025-04-11 08:22 | XMS_ITS ---
Author Name [facility] Organization Unknown Care Team Organization Name Specialty Phone Email Start Date End Da te [facility] ANTELMO PERKINS Primary Care 07/21/2022 05/01/2024
--- OUTSIDE RECORDS SUMMARY | 2025-04-11 08:22 | XMS_ITS | Clinical Summary ---
Author Organization 175 [facility] Address [address] [place] [address] Phone Care Team Providers Care Disability Coordinator Name Role Phone Reshma Vinson Primary Care Provider [phone] Allergies Active Allergy Reactions Criticality Noted Date [...] without obstruction or gangrene 01/23/2025 Cerebellar ataxia ([facility] V24, [facility] V28) Overview (09/22/2024): Dr Hastings- yearly, EMG 2006 Nrml, MRI 2006 Non specific findings Allergic rhinitis 04/25/2019 Asthma 04/25/2019 Diabetes mellitus type 2, un complicated ([facility] V24, [facility] V28) 04/25/2019 Hypercalcemia 04/25/2019 Overview (09/22/2024): She notes she was told this a long time ago, unclear details Hypertension 04/25/2019 Hypertriglyceridemia 04/25/2019 Osteoarthritis 04/25/2019 Overview (09/22/2024): Cervical Spine, Hands/thumbs/right shoulder/knees Encounters Date Type Department Care Team Description 01/23/2025 3:15 PM EDT Consult General Surgery - [address] [place] [phone] Rosa Ricardo MD Chronic cough (Primary [...] HISTORICAL TUBAL LIGATION OTHER SURGICAL HISTORY PROCEDURE: [place] ECTOPIC ABDOMINAL/VAGINAL APPR; COMMENT: removal of tube/ovary APPENDECTOMY PROCEDURE: HISTORICAL APPENDECTOMY OTHER SURGICAL HISTORY 06/08/2018 Right PROCEDURE: [place] ARTHROPLASTY GLENOHUMERAL JOINT TOTAL SHOULDER; COMMENT: Dr [...] Description 05/24/2025 9:00 AM EDT Pre-Admission Testing [facility] Pre-Admission Testing [address] [place] [address] 05/31/2025 7:30 AM EDT Hospital Encounter [facility] Main OR [address] [place] [address] Rosa Ricardo MD [address] [address] 05/31/2025 7:30 AM EDT - 05/31/2025 9:00 AM EDT Surgery [facility] Main OR [address] [place] [address] Rosa Ricardo MD [address] [address] OPEN REPAIR UMBILICAL HERNIA W/MESH [22357 (CPT )] 06/12/2025 10:45 AM EDT Office Visit General Surgery - [place] [address] [phone] Rosa Ricardo MD [address] [address] Scheduled Procedures Name Priority Associated Diagnoses Date/Ti [...] series) 2010 Colorectal Cancer Screening: Colonoscopy 08/22/2022 Falls Risk Assessment 08/22/2022 Medicare Annual Wellness Visit 08/22/2022 Osteoporosis Screening (Bone Density Screening) 08/22/2022 Social Influencers of Health Screening 08/22/2022 Diabetes: Annual Urine Albumin-Creatinine Ratio (uACR) 03/02/2024 03/02/2023 Diabetes: Blood Sugar Control Test (HGBA1C) 03/03/2024 09/02/2023 Diabetes: Annual GFR (Glomerular Filtration Rate) 09/02/2024 09/02/2023 Hypertension/CHF/CAD Annual BMP Blood Test 09/02/2024 09/02/2023 Depression Screening 09/13/2024 COVID-19 Vaccine ( season) 2024 06/06/2024, 01/18/2024, [...] Recently Relevant to Health Maintenance Insurance MEDICARE [facility] Care Teams Disability Coordinator Relationship Specialty Start Date End Date Reshma Vinson PA [address] [place] [id number] PCP - General Physician 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
[2025-04-11 08:29] VITALS: BP 122/78; PULSE 83; O2SAT 96; BMI 31.5
[2025-04-11 08:37] LABS: Glucose, Whole Blood 164 mg/dL (60-115)
== END 2025-04-11 09:07 | disposition home or self-care (01) ==
LOC: HO.ENCR 08:18
PROVIDERS: PCP Physician Assistant Medical; Visit Provider Internal Medicine
DX: E11.9 Type 2 diabetes mellitus without complications (principal)

== ENCOUNTER → 2025-04-11 08:17 | Outpatient (BNVA) | payer MEDICARE, SELFPAY | PROVIDERS: PCP Physician Assistant Medical; Visit Provider Internal Medicine | DX: E11.9 Type 2 diabetes mellitus without complications (principal); Z79.84 Long term (current) use of oral hypoglycemic drugs | CPT/HCPCS: 82947; 99212 ==

== ENCOUNTER 2025-06-15 09:14 | Outpatient (REF) | payer MEDICARE, SELFPAY ==
--- OUTSIDE RECORDS SUMMARY | 2025-06-12 10:45 | XMS_ITS | Encounter Summary ---
Author Organization [facility] [place] [address] Care Team Providers Care Data Management Consultant Name Role Phone Reshma Vinson Primary Care Provider [phone] Reason for Visit * Reason Comments Post-op Hernia Encounter Details Date Type Department Care Team ([facility] st Contact Info) Description 06/12/2025 10:45 AM EDT Office Visit General Surgery - [address] [place] [address] Rosa Blas MD [address] [place] [phone] Umbilical hernia without obstruction or gangrene (Primary Dx) Social History Tobacco Use Types Packs/Day Years Used Date Smoking Tobacco: Never Smokeless Tobacco: Never Alcohol Use Standard Drinks/Week Comments Yes 0 (1 standard drink = 0.6 oz pur e alcohol) RARELY Interpersonal Safety Answer Date Record ed Physical Abuse Unrecognized value 05/31/2025 Verbal Abuse Unrecognized value 05/31/2025 Comments No Sex and Gender Information Value Date Recorded Sex Assigned at Not on file Legal Sex Female 10:39 AM EST Gender Identity Not on file Sexual Orientation Not on file documented as of this encounter Last Filed Vital Signs Vital Sign Reading Time Taken Comments Blood Pressure 173/77 06/12/2025 10:48 AM EDT Pulse 77 06/12/2025 10:48 AM EDT Temperature - - Respiratory Rate - - Oxygen Saturation - - Inhaled Oxygen Concentration - - Weight 88.8 kg (195 lb 12.8 oz) 09/30/2 025 10:48 AM EDT Height 165.1 cm (5' 5 ) 06/12/2025 10:4 8 AM EDT Body Mass Index 32.58 06/12/2025 10:48 AM EDT documented in this encounter Progress Notes * Rosa Blas MD - 06/12/2025 10:45 AM EDT Reason for visit: Post-op appointment HPI: The patient presents for post-op exam. Patient accompanied in the office by: n/a Procedure: open UHR with mesh Date of procedure: 05/31/2025 Doing well. Pain well controlled. Tolerating a regular diet without nausea or vomiting. Surgical site without swelling, redness, or drainage. Denies fevers, chills, sweats. Pathology: Omentum-hernia repair: -ADIPOSE TISSUE CONSISTENT WITH OMENTUM No interval change in past medical history, past surgical history, or social history. Active medication list reviewed. PHYSICAL EXAM: The patient is awake, alert, and in no acute distress. Eyes are anicteric. Moist mucous membranes. The abdomen is soft and nontender. Incision healing well, clean dry and intact; no erythema or drainage. The extremities are warm and well-perfused. LABS: No recent labs. IMAGING: No pertinent imaging. ................................................................................ ............................................................. ASSESSMENT & PLAN: Recovering well. Benign pathology. No heavy lifting (>15 pounds) for 6 weeks following surgery. Patient will follow-up in my office as needed. It was a pleasure seeing Eloisa Rivero at the Surgery Clinic today. The patient has been instructed tocall with any additional questions or concerns. Rosa Blas MD, MS, FACS General Surgery [facility] A Member of [facility] W [phone] F [phone] [address] [place] [address] [email or web address] cc: IGOR Dorsey documented in this encounter Plan of Treatment Not on file documented as of this encounter Visit Diagnoses Diagnosis Umbilical hernia without obstruction or gangrene- Primary Umbilical hernia without mention of obstruction or gangrene documented in this encounter Discontinued Medications Medication Sig Discontinue Reason Start Date End Da te cholecalciferol, vitamin D3, (D3-50 CHOLECALCIFEROL ORAL) Cholecalciferol (D-3-5 OR) Take by mouth. 06/12/2025 documented as of this encounter Historical Medications * This list may reflect changes made after this encounter. magnesium oxide-herbal drugs (Beet Root-Magnesium) 150 mg tablet Take by mouth. 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
--- NOTE | ~2025-06-15 | US_ITS ---
EXAMINATION: US ABDOMEN COMPLETE WITH LIVER ELASTOGRAPHY HISTORY: K76.0 - Fatty (change of) liver, not elsewhere classified TECHNIQUE: Real-time grayscale ultrasound imaging of the abdomen was performed and images were reviewed. COMPARISON: Comparison is made with the prior examination dated 08/08/2024. FINDINGS: Liver: The right lobe of the liver measures 18.1 cm in size. The left lobe of the liver measures 13.0 cm in size. The liver demonstrates increased echotexture, consistent with steatosis. No focal mass or intrahepatic biliary ductal dilatation is identified. There is normal hepatopedal flow in the portal vein. Ultrasound elastography of the liver was performed with 10 separate measurements of the liver parenchyma with the patient in the supine position. Measurements were obtained approximately 2 cm below Nalini's capsule and perpendicular to the capsule. The median shear wave velocity is 1.53 m/s (previously 1.44 m/s). The interquartile range/median (IQR/median) is 0.23. Gallbladder and biliary tree: The gallbladder is unremarkable, without evidence of calculi, wall thickening, or pericholecystic fluid. There is no sonographic Adams sign. The common bile duct is normal in caliber measuring 4 mm. Kidneys: The right kidney measures 11.4 cm in length. The left kidney measures 11.3 cm in length. The right kidney is unremarkable. There are nonobstructing calculi at the lower pole of the left kidney measuring 6 x 3 x 8 mm and 5 x 2 x 3 mm. There are cysts in the interpolar region of the left kidney measuring 1.3 x 0.7 x 1.0 cm and 1.3 x 1.2 x 1.4 cm. Pancreas: The pancreatic head, neck, and body are unremarkable. The pancreatic tail is obscured by bowel gas. Spleen: The spleen is normal in size and contour, measuring 11.4 cm in length. Abdominal aorta and inferior vena cava: The visualized portions of the abdominal aorta and inferior vena cava are normal in caliber. There is no free fluid in the abdomen. US/US abdomen comp w elastography IMPRESSION: 1. Hepatomegaly and hepatic steatosis. 2. Left nephrolithiasis and renal cysts as described. The median shear wave velocity in the liver is 1.53 m/s, corresponding to a median liver stiffness of 7.1 kPa. The IQR/median value is 0.23. This is indicative of a quality data set. Findings are indicative of a low elastography value which rules out advanced chronic liver disease in asymptomatic patients. REFERENCE: Society of Radiologists in Ultrasound Liver Stiffness Thresholds (2020): LIVER STIFFNESS THRESHOLDS: *Shear wave velocity less than 1.3 m/s (Liver Stiffness equal or less than 5 kPa): High probability of being normal. *Shear wave velocity less than 1.7 m/s (Liver Stiffness less than 9 kPa): In the absence of other known clinical signs, rules out compensated advanced chronic liver disease. *Shear wave velocity between 1.7-2.1 m/s (Liver Stiffness 9-13 kPa): Suggestive of compensated advanced chronic liver disease but need further test for confirmation. *Shear wave velocity between 2.1-2.4 m/s (Liver Stiffness 13-17 kPa): Rules in compensated advanced chronic liver disease. *Shear wave velocity greater than 2.4 m/s (Liver Stiffness over 17 kPa): Suggestive of clinically significant portal hypertension. QUALITY OF DATA SET: *IQR/Median value equal or less than 0.30 implies a quality data set. *IQR/Median value over 0.30 implies a poor quality data set. SIGNIFICANT CHANGE FROM PRIOR EXAM: Significant change if liver stiffness measurement is 10% or greater from prior exam. OTHER CONSIDERATIONS: The stage of liver fibrosis may be overestimated in the setting of acute hepatitis, liver inflammation, elevated liver function tests, hepatic vascular congestion, obstructive cholestasis, non-fasting state, and infiltrative diseases such as amyloidosis and lymphoma. In some patients with NAFLD, the liver stiffness thresholds for compensated advanced chronic liver disease may be lower. In causes other than viral hepatitis and NAFLD, liver stiffness thresholds are not well established. Electronically signed by: Jones Antonio MD 06/15/2025 10:59 AM EDT
--- OUTSIDE RECORDS SUMMARY | 2025-06-15 09:40 | XMS_ITS | Clinical Summary ---
Author Organization 175 [facility] Address [address] [place] [address] Phone Care Team Providers Care Marketing Strategist Name Role Phone Reshma Vinson Primary Care Provider [phone] Allergies Active Allergy Reactions Criticality Noted Date Comments Diclofenac Sodium Unknown 07/06/2019 Hydromorphone Nausea And Vomiting 07/27/2019 dizzy Hydromorphone Hcl 09/23/2022 Other Wheezing,Runny nose 04/25/2019 Seasonal Allergies Animal dander house dust MULTIPLE TREE-RECENTLY HAD ALLERGY TESTING Medications rosuvastatin (CRESTOR) 5 mg tablet TAKE 1 TABLET BY MOUTH EVERY DAY Active lisinopril (PRINIVIL,ZESTRIL ) 40 mg tablet Take 1 Tablet by mouth daily. Active albuterol HFA (PROAIR HFA ; PROVENTIL HFA ; VENTOLIN HFA) 90 mcg/actuation inhaler Inhale 2 Puffs into the lungs every 4 hours as needed for Cough or Wheezing. 024 Active montelukast (SINGULAIR) 10 mg tablet TAKE 1 TABLET BY MOUTH EVERYDAY AT BEDTIME Active turmeric root extract 500 mg capsule Take by mouth. Activ e multivit-min/iron /folic acid/K (ADULTS MULTIVITAMIN ORAL) Multiple Vitamins-Minerals (Multivitamin Adult, Minerals,) Tab Take 1 tablet by mouth daily. Active omega-3 (FISH OIL) 360-1,200 mg capsule Take 1 capsule by mouth daily. Active vitamin B complex (B COMPLEX ORAL) Take by mouth daily. Active cetirizine (ZyrTEC) 10 mg tablet Take 10 mg by mouth daily. Active Cinnamon 500 mg capsule Take 1 capsule (500 mg total) by mouth 1 (one) time each day. Active magnesium oxide-herbal drugs (Beet Root-Magnesium) 150 mg tablet Take by mouth. A ctive cholecalciferol, vitamin D3, (D3-50 CHOLECALCIFEROL ORAL) Cholecalciferol (D-3-5 OR) Take by mouth. 06/12 Discontinued Active Problems Problem Noted Date Diagnosed Date Umbilical hernia without obstruction or gangrene 01/23/2025 Cerebellar ataxia ([facility] V24, [facility] V28) Overview (09/22/2024): Dr Hastings- yearly, EMG 2006 Nrml, MRI 2006 Non specific findings Allergic rhinitis 04/25/2019 Asthma 04/25/2019 Diabetes mellitus type 2, un complicated ([facility] V24, [facility] V28) 04/25/2019 Hypercalcemia 04/25/2019 Overview (09/22/2024): She notes she was told this a long time ago, unclear details Hypertension 04/25/2019 Hypertriglyceridemia 04/25/2019 Osteoarthritis 04/25/2019 Overview (09/22/2024): Cervical Spine, Hands/thumbs/right shoulder/knees Encounters Date Type Department Care Team Description 06/12/2025 10:45 AM EDT Office Visit General Surgery - [place] 175 [facility] [address] [place] [phone] Rosa Ricardo MD Umbilical hernia without obstruction or gangrene (Primary Dx) 05/31/2025 7:35 AM EDT Anesthesia Event [address] [phone] Nava Hamilton MD 05/31/2025 7:30 AM EDT - 05/31/2025 9:00 AM EDT Surgery [facility] OR [address] [place] [phone] Rosa Ricardo MD OPEN REPAIR UMBILICAL HERNIA W/MESH [[id number] (CPT )] 05/31/2025 5:55 AM EDT - 05/31/2025 10:37 AM EDT Hospital Encounter [facility] Main OR [address] [place] [address] Rosa Ricardo MD Umbilical hernia without obstruction or gangrene Discharge Disposition: Home or Self Care from Last 3 Months Immunizations Immunization Administration Dates Next Due Influenza trivalent, 0.5mL [...] HISTORICAL TUBAL LIGATION OTHER SURGICAL HISTORY PROCEDURE: [place] ECTOPIC ABDOMINAL/VAGINAL APPR; COMMENT: removal of tube/ovary APPENDECTOMY PROCEDURE: HISTORICAL APPENDECTOMY OTHER SURGICAL HISTORY 06/08/2018 Right PROCEDURE: [place] ARTHROPLASTY GLENOHUMERAL JOINT TOTAL SHOULDER; COMMENT: Dr Armen HART TOTAL SHOULDER ARTHROPLASTY OTHER SURGICAL HISTORY Left WRIST Medical History Medical History Date Comments H/O [...] to excess ancelmo ories with serious comorbidity Disease of thyroid gland Liver disease FATTY LIVER History of transfusion Joint pain Fractures Granuloma annulare Family History Medical History Relation Name Comments Other: snow mobile accident 2000, paralyzed Brother Other: food allergies Daughter 1 Other: CKD on HD Father diabetes, heart issues , [place]? Stroke Mother Arthritis Sister Relation Name Status [...] Pulse 77 06/12/2025 10:48 AM EDT Temperature 36.4 C (97.6 F) 05/31/2025 9:52 AM EDT Respiratory Rate 18 05/31/2025 9:52 AM EDT Oxygen Saturation 98% 05/31/2025 9:52 AM EDT Inhaled Oxygen Concentration - - Weight 88.8 kg (195 lb 12.8 oz) 025 10:48 AM EDT Height 165.1 cm (5' 5 ) 06/12/2025 10:4 8 AM EDT Body Mass Index 32.58 06/12/2025 10:48 AM EDT Plan of Treatment Health Maintenance Due Date Last Done Comments Colorectal Cancer Screening: Colonoscopy 1950 Diabetes: Annual Foot Exam 01/27/1960 Diabetes: Annual Retina Eye Exam 01/27/1960 Hepatitis A Vaccines (1 of 2 - Risk 2-dose series) 1969 Hepatitis B Vaccines (1 of 3 - Risk 3-dose series) 2010 Medicare Annual Wellness Visit 08/22/2022 Osteoporosis Screening (Bone Density Screening) 08/22/2022 Social Influencers of Health Screening 08/22/2022 Diabetes: Annual Urine Albumin-Creatinine Ratio (uACR) 03/02/2024 03/02/2023 Diabetes: Blood Sugar Control Test (HGBA1C) 03/03/2024 09/02/2023 Diabetes: Annual GFR (Glomerular Filtration Rate) 09/02/2024 09/02/2023 Hypertension/CHF/CAD Annual BMP Blood Test 09/02/2024 09/02/2023 Depression Screening 09/13/2024 RSV Immunization Adult Patients (1 - 1-dose 75+ series) 2025 08/02/2023 COVID-19 Vaccine ( season) 2025 06/06/2024, 01/18/2024, 08/02/2023, Additional history exists Influenza Vaccine (#1) 2025 , 08/21/2023, 08/21/2023, Additional history exists Falls Risk Assessment 05/31/2026 05/31/2025 Cholesterol Screening (Lipid Panel) 09/02/2028 09/02/2023 DTaP,Tdap,and [...] on patient's age to complete this topic Medical Devices Implanted Type Area Stone Planer Device Identifier Shelf Expiration Date Model / Serial / Lot Mesh Ventralex St 1.7in Sm [place] W/Strap - Sna - [id number] Implanted:Qty: 1 on 05/31/2025 by Rosa Ricardo MD at [facility] Surgical Mesh Sling Implants N/A: Abdomen CR BARD - DAVOL DIV [id number] 11/10/2026 [id number] / NA / [id number] Procedures Procedure Name Priority Date/Time Associated Diagnosis Comments POCT GLUCOSE BLOOD Routine 05/31/2025 10 :02 AM EDT TISSUE EXAM Routine 05/31/2025 8:20 AM EDT Umbilical hernia without obstruction or gangrene TH AN LMA(NO CHARGE) Routine 05/31/2025 8:05 AM EDT WA REPR ANT ABD HERNIA(S) ANY APPR INIT INCL IMPL < 3 CM REDUCIBLE 05/31/2025 7:35 AM EDT Umbilical hernia without obstruction or gangrene Special Needs Umbilical Hernia Repair Open With Mesh -- Asking 60 minutes for this case. POCT GLUCOSE BLOOD Routine 05/31/2025 6: 13 AM EDT ECG 12-LEAD Routine 05/24/2025 9:07 AM EDT Umbilical hernia without obstruction or gangrene Chronic cough HEPATITIS C SCREENING Routine 09/08/2023 ANNUAL BMP BLOOD TEST Routine 09/02/2023 HEMOGLOBIN A1C Routine 09/02/2023 LIPID PANEL Routine 09/02/2023 URINE ALBUMIN CREATININE RATIO Routine 03/02/2023 from Last 3 Months or Most Recently Relevant to Health Maintenance Results * (ABNORMAL) POCT Glucose, blood (05/31/2025 10:02 AM EDT) Only the most recent of2 resultswithin the time period is included. Glucose POCT 155(H) 70 - 100 mg/dL 05/31/2025 10:03 AM EDT [facility] Blood Capillary blood specimen / Unknown 05/31/2025 10:02 AM EDT 05/31/2025 10:05 AM EDT Rosa Ricardo MD LAB POINT OF CA RE TEST DOCKED DEVICE UNSOLICITED RESULTS Final Result [facility] [address] [place] [address], [place] [phone] * Tissue exam (05/31/2025 8:20 AM EDT) Final Diagnosis Omentum-hernia repair: -ADIPOSE TISSUE CONSISTENT WITH OMENTUM 06/01/2025 1:17 PM EDT [facility] Gross Description A. Omentum, incarcerated: Labeled incarcera, omentum . Received in formalin is a 29 g, 9.2 x 5.5 x 1.5 cm lobulated, capellan-yellow portion of well vascularized fibrofatty adipose tissue, consistent with omentum. Cut surfaces are glistening, yellow and lobular. No masses or lesions identified. Psych Social Worker sections are submitted in one cassette, two pieces. KR 06/01/2025 1:17 PM EDT [facility] Disclaimer Unless otherwise specified, all tissue is 10% NB formalin fixed and paraffin embedded. 06/01/2025 1:17 PM EDT [facility] Tissue Omentum structure / Unknown 05/31/2025 8:20 AM EDT 05/31/2025 10:42 AM EDT us Rosa Ricardo MD LAB PATHOLOGY ORDERABLE S Final Result [facility] [address] [place] [address], [place] [phone] * TH AN LMA(NO CHARGE) (05/31/2025 8:05 AM EDT) Pierre Morse CRNA - 05/31/2025 8:05 AM EDT Pierre Hollingsworth CRNA 05/31/2025 8:05 AM General Information and Staff Patient location during procedure: OR Other anesthesia staff: JACQUELIN More Performed: other anesthesia staff Performed by: Pierre Hollingsworth CRNA Authorized by: Nava Hamilton MD Intubation Airway not difficult Urgency: elective Final Airway Details Number of attempts at approach: 1 LMA Size: 4 LMA Type: Classic LMA Seal Pressure: Final airway type: LMA Indications and Patient Condition Indications for airway management: anesthesia Spontaneous Ventilation: absent Sedation level: Yes Preoxygenated: yes Soft Tissue Damage: No Dentition Unchanged: Yes Patient position: sniffing MILS maintained throughout Mask difficulty assessment: 0 - not attempted us Nava Hamilton MD ANESTHESIA ORDERABLES Fin al Result * ECG 12 lead (05/24/2025 9:07 AM EDT) Ventricular Rate ECG 78 BPM GEMUSE Atrial Rate 78 BPM GEMUSE P-R Interval 164 ms GEMUSE QRS Duration 106 ms GEMUSE Q-T Interval 388 ms GEMUSE QTc 442 ms GEMUSE P Wave Golden 52 degrees GEMUSE R Golden 40 degrees GEMUSE T Golden 32 degrees GEMUSE ECG Interpretation Normal sinus rhythm Normal ECG No previous ECGs available Confirmed by MD Jules Christopher ([id number]) on 05/24/2025 9:54:07 PM GEMUSE 05/24/2025 9:07 AM EDT 05/24/2025 9:[address] [facility] Rosa Ricardo MD ECG ORDERABLES Final R esult GEMUSE * Hepatitis C Screening (09/08/2023) [facility] Hepatitis C Screening abstracted Result [facility] Provider HEALTH MAINTENANCE Final Result * Annual BMP Blood Test (09/02/2023) [facility] Annual BMP Blood Test abstracted Result [facility] Provider HEALTH MAINTENANCE Final Result * (ABNORMAL) Hemoglobin A1c (09/02/2023) [facility] Hemoglobin A1C 6.8(A) <=6.5 % Blood Venous blood specimen / Unknown Result [facility] Provider LAB BLOOD ORDERABLES Ene[place] l Result * (ABNORMAL) Lipid panel (09/02/2023) [facility] LDL/HDL Ratio 5(A) 0 - 4 Triglycerides 375(A) 0 - 150 mg/dL Cholesterol 206(A) 0 - 200 mg/dL HDL 43 >=40 mg/dL LDL Cholesterol 88 0 - 100 mg/dL Blood Venous blood specimen / Unknown Result [facility] Provider LAB BLOOD ORDERABLES [place] l Result * Urine Albumin Creatinine Ratio (03/02/2023) [facility] Urine Albumin Creatinine Ratio abstracted us Historical Provider HEALTH MAINTENANCE Final Result from Last 3 Months or Most Recently Relevant to Health Maintenance Insurance MEDICARE [facility] Advance Directives * Full Code - Default (Latest Code Status on File) Date Activated Date Inactivated Comments 05/31/2025 6:06 AM 05/31/2025 12:55 PM This is ord er is used when code status has not been discussed with the patient, or code status is otherwise unknown/unconfirmed To update the patient's code status, place a code status order. Do not modify or discontinue any currently active code status orders. Care Teams Marketing Strategist Relationship Specialty Start Date End Date Reshma Vinson PA [address] [place] [address] PCP - General Physician Senior Peoplesoft Developer 01/09/25
== END 2025-06-15 09:15 | disposition home or self-care (01) ==
LOC: HO.US 09:14
PROVIDERS: PCP Physician Assistant Medical; Visit Provider Internal Medicine
DX: K76.0 Fatty (change of) liver, not elsewhere classified (principal)
CPT/HCPCS: 76700; 76981

== ENCOUNTER → 2025-06-15 09:16 | Outpatient (BNV) | payer MEDICARE, SELFPAY | PROVIDERS: PCP Physician Assistant Medical; Visit Provider Radiology Diagnostic Radiology | DX: N20.0 Calculus of kidney (principal); N28.1 Cyst of kidney, acquired; K76.0 Fatty (change of) liver, not elsewhere classified; R16.0 Hepatomegaly, not elsewhere classified | CPT/HCPCS: 76700 ==

== ENCOUNTER 2025-06-19 10:34 | Outpatient (REF) | payer MEDICARE, SELFPAY ==
--- OUTSIDE RECORDS SUMMARY | 2025-06-19 12:50 | XMS_ITS | Clinical Summary ---
Author Organization 175 [facility] Address [address] [place] [address] Phone Care Team Providers Care Political Research Scientist Name Role Phone Reshma Vinson Primary Care Provider [phone] Allergies Active Allergy Reactions Criticality Noted Date [...] without obstruction or gangrene 01/23/2025 Cerebellar ataxia ([facility] V24, [facility] V28) Overview (09/22/2024): Dr Hastings- yearly, EMG 2006 Nrml, MRI 2006 Non specific findings Allergic rhinitis 04/25/2019 Asthma 04/25/2019 Diabetes mellitus type 2, un complicated ([facility] V24, [facility] V28) 04/25/2019 Hypercalcemia 04/25/2019 Overview (09/22/2024): She notes she was told this a long time ago, unclear details Hypertension 04/25/2019 Hypertriglyceridemia 04/25/2019 Osteoarthritis 04/25/2019 Overview (09/22/2024): Cervical Spine, Hands/thumbs/right shoulder/knees Encounters Date Type Department Care Team Description 06/12/2025 10:45 AM EDT Office Visit General Surgery - [place] [address] [facility] [address] [place] [phone] Rosa Ricardo MD Umbilical hernia without obstruction or gangrene (Primary Dx) 05/31/2025 7:35 AM EDT Anesthesia Event [address] [phone] Nava Hamilton MD 05/31/2025 7:30 AM EDT - 05/31/2025 9:00 AM EDT Surgery [facility] OR [address] [place] [phone] Rosa Ricardo MD OPEN REPAIR UMBILICAL HERNIA W/MESH [94539 (CPT )] 05/31/2025 5:55 AM EDT - 05/31/2025 10:37 AM EDT Hospital Encounter [facility] Main OR [address] [place] [address] Rosa Ricardo MD Umbilical hernia without obstruction [...] HISTORICAL TUBAL LIGATION OTHER SURGICAL HISTORY PROCEDURE: DE TX ECTOPIC ABDOMINAL/VAGINAL APPR; COMMENT: removal of tube/ovary APPENDECTOMY PROCEDURE: HISTORICAL APPENDECTOMY OTHER SURGICAL HISTORY 06/08/2018 Right PROCEDURE: DE ARTHROPLASTY GLENOHUMERAL JOINT TOTAL SHOULDER; COMMENT: Dr [...] on HD Father diabetes, heart issues , [place]? Stroke Mother Arthritis Sister Relation Name Status [...] this topic Medical Devices Implanted Type Area Mexican Food Maker Device Identifier Shelf Expiration Date Model / Serial / Lot Mesh Ventralex St 1.7in Sm [place] W/Strap - Sna - [id number] Implanted:Qty: 1 on 05/31/2025 by Rosa Ricardo MD at [facility] Surgical Mesh Sling Implants N/A: Abdomen CR BARD - DAVOL DIV [id number] 11/10/2026 [id number] / NA / [id number] Procedures Procedure Name Priority Date/Time Associated Diagnosis Comments POCT GLUCOSE BLOOD Routine 05/31/2025 10 :02 AM EDT TISSUE EXAM Routine 05/31/2025 8:20 AM EDT Umbilical hernia without obstruction or gangrene TH AN LMA(NO CHARGE) Routine 05/31/2025 8:05 AM EDT [place] REPR ANT ABD HERNIA(S) ANY APPR INIT [...] - 100 mg/dL 05/31/2025 10:03 AM EDT [facility] Blood Capillary blood specimen / Unknown 05/31/2025 10:02 AM EDT 05/31/2025 10:05 AM EDT Rosa Ricardo MD LAB POINT OF CA RE TEST DOCKED DEVICE UNSOLICITED RESULTS Final Result [facility] [address] [place] [address], [place] [phone] * Tissue exam (05/31/2025 8:20 AM EDT) Final Diagnosis Omentum-hernia repair: -ADIPOSE TISSUE CONSISTENT WITH OMENTUM 06/01/2025 1:17 PM EDT [facility] Gross Description A. Omentum, incarcerated: Labeled incarcera, omentum . Received in formalin is a 29 g, 9.2 x 5.5 x 1.5 cm lobulated, capellan-yellow portion of well vascularized fibrofatty adipose tissue, consistent with omentum. Cut surfaces are glistening, yellow and lobular. No masses or lesions identified. Care Analyst sections are submitted in one cassette, two pieces. KR 06/01/2025 1:17 PM EDT [facility] Disclaimer Unless otherwise specified, all tissue is 10% NB formalin fixed and paraffin embedded. 06/01/2025 1:17 PM EDT [facility] Tissue Omentum structure / Unknown 05/31/2025 8:20 AM EDT 05/31/2025 10:42 AM EDT us Rosa Ricardo MD LAB PATHOLOGY ORDERABLE S Final Result [facility] [address] [place] [address], [place] [phone] * TH AN LMA(NO CHARGE) (05/31/2025 8:05 [...] GEMUSE QTc 442 ms GEMUSE P Wave [place] 52 degrees GEMUSE R [place] 40 degrees GEMUSE T [place] 32 degrees GEMUSE ECG Interpretation Normal sinus rhythm Normal ECG No previous ECGs available Confirmed by MD Jules Christopher ([id number]) on 05/24/2025 9:54:07 PM GEMUSE 05/24/2025 9:07 AM EDT 05/24/2025 9:54 PM EDT Result [facility] Rosa Ricardo MD ECG ORDERABLES Final R esult GEMUSE * Hepatitis C Screening (09/08/2023) [facility] Hepatitis C Screening abstracted Result [facility] Provider HEALTH MAINTENANCE Final Result * Annual BMP Blood Test (09/02/2023) [facility] Annual BMP Blood Test abstracted Result [facility] Provider HEALTH MAINTENANCE Final Result * (ABNORMAL) Hemoglobin A1c (09/02/2023) [facility] Hemoglobin A1C 6.8(A) <=6.5 % Blood Venous blood specimen / Unknown Result [facility] Provider LAB BLOOD ORDERABLES Eneida l Result * (ABNORMAL) Lipid panel (09/02/2023) [facility] LDL/HDL Ratio 5(A) 0 - 4 Triglycerides 375(A) 0 - 150 mg/dL Cholesterol 206(A) 0 - 200 mg/dL HDL 43 >=40 mg/dL LDL Cholesterol 88 0 - 100 mg/dL Blood Venous blood specimen / Unknown Result [facility] Provider LAB BLOOD ORDERABLES Eneida l Result * Urine Albumin Creatinine Ratio (03/02/2023) [facility] Urine Albumin Creatinine Ratio abstracted us Historical Provider HEALTH MAINTENANCE Final Result from Last 3 Months or Most Recently Relevant to Health Maintenance Insurance MEDICARE [facility] Advance Directives * Full Code - Default [...] currently active code status orders. Care Teams Political Research Scientist Relationship Specialty Start Date End Date Reshma Vinson PA [address] [place] [address] PCP - General Physician Audit Manager 01/09/25
[2025-06-19 14:56] LABS: Hemoglobin A1C 149.8156 umol/L
[2025-06-19 15:04] LABS: Alanine Aminotransferase 30 U/L (0-31); Albumin Level 4.8 g/dL (3.5-5.0); Alkaline Phosphatase 92 U/L (39-117); Anion Gap 12 (12-20); Aspartate Amino Transferase 33 U/L (5-31); Blood Urea Nitrogen 21 mg/dL (9-16); Calcium 10.7 mg/dL (8.4-10.2); Carbon Dioxide 26 mmol/L (22-29); Chloride 106 mmol/L (96-108); Cholesterol 194 mg/dL (<200); Estimated Glomerular Filt Rate > 60; HDL Cholesterol 40 mg/dL (>40); Potassium 4.3 mmol/L (3.3-5.1); Sodium 140 mmol/L (135-145); Total Protein 7.9 g/dL (6.5-8.0); Triglycerides 261 mg/dL (<150)
[2025-06-19 15:12] LABS: Creatinine, mg/dL 39.59
[2025-06-19 15:19] LABS: Parathyroid Hormone Intact 43.4 pg/mL (8.7-77.1)
[2025-06-19 16:45] LABS: Total Volume 24 Hour Urine 2900 mL
[2025-06-20 14:58] LABS: Calcium, Ionized 5.8 mg/dL (4.7-5.5)
[2025-06-26 11:58] LABS: Calcium/Creatinine Ratio 145 mg/g creat (30-275); Creatinine 24Hr Urine 1.28 g/24 h (0.50-2.15)
== END 2025-06-19 10:35 | disposition home or self-care (01) ==
LOC: HO.WFDLDS 10:34
PROVIDERS: Internal Medicine; Visit Provider Student in an Organized Health Care Education/Training Program
DX: E11.65 Type 2 diabetes mellitus with hyperglycemia (principal); E83.52 Hypercalcemia
CPT/HCPCS: 36415; 80053; 80061; 82306; 82330; 82340; 82570; 83036; 83970; 84100

== ENCOUNTER 2025-06-27 09:09 | Outpatient (AMB) | payer MEDICARE, SELFPAY ==
--- NOTE | 2025-06-27 09:07 | A.OFFVIS_ITS ---
Vital Signs 06/27/25 09:13 Height 5 ft 5 in Weight 194 lb BMI 32.3 BP 134/70 Blood Pressure Location Lt brachial Position Sitting Pulse 76 Pulse Source Pulse Oximeter Pulse Oximetry (%) 99 Oxygen Delivery Method Room Air Intake Visit Reasons: Asthma Multiple Effect Evaporator Operator Required: No Potato Grader: Potato Grader offered & declined Accompanied by: Self / Same As Patient Allergies diclofenac Allergy (Unknown, Verified 06/27/25 09:17) Unknown hydromorphone Allergy (Unknown, Verified 06/27/25 09:17) Nausea and Vomiting NSAIDS (Non-Steroidal Anti-Inflamma Allergy (Unknown, Verified 06/27/25 09:17) Diarrhea Medication List - Last Reconciled 06/27/25 by Shelly Marx LPN albuterol sulfate 90 mcg/actuation 2 puffs inhalation Q6H PRN Blood Glucose Test (blood sugar diagnostic) As directed to check blood glucose once daily. NS blood sugar diagnostic (FreeStyle Lite Strips) As directed to check glucose 1 time daily blood-glucose meter (FreeStyle Lite Meter kit) 1 times a day to check blood glucose for uncontolled diabetes type 2 11.9 blood-glucose sensor ([employer] SystemsStyle Cherri 3 Sensor device) apply new sensor every 14 days blood-glucose,bill hiker,cont (FreeStyle Cherri 3 [place]) Use daily to monitor blood glucose levels continuously. budesonide 90 mcg/actuation (Pulmicort Flexhaler) 1 inh inhalation BID cetirizine (Zyrtec) 10 mg PO DAILY PRN lancets (FreeStyle Lancets) Use to monitor blood glucose one time daily lisinopril 40 mg PO DAILY montelukast (Singulair) 10 mg PO BEDTIME multivitamin 1 tab PO DAILY omega-3 fatty acids 1,250 mg PO DAILY rosuvastatin 5 mg PO DAILY vitamin B complex-folic acid 50 mcg tabs PO HPI HPI Asthma: Details: Eloisa is a pleasant 75 year old female, never smoker, with underlying asthma, HTN, HLD and DMII. Prior PFT 2023 revealed no obstructive or restrictive defect with significant response to bronchodilators in small to medium airways only. She has used various inhalers in the past, including Wixela and Arnuity Ellipta, which caused adverse effects such as mucus accumulation and altered taste, leading to discontinuation. At the last visit, she was prescribed pulmicort however patient never received and feels respiratory symptoms are relatively controlled with the use of albuterol PRN. Unfortunately patient reports losing her albuterol and has had intermittent wheezing. The patient reports experiencing postnasal drip, which causes a persistent tickling sensation and frequent coughing. Initially, she was coughing up greenish mucus, which has since cleared, and she no longer produces mucus. She denies any recent use of antibiotics and has not visited urgent care since her last appointment. PENDING SALE TO [facility] Medical History Renal cyst Nephrolithiasis Controlled type 2 diabetes mellitus Umbilical hernia Hepatic steatosis Serum calcium elevated Elevated LFTs Uncontrolled type 2 diabetes mellitus with hyperglycemia Ataxia Perennial allergic rhinitis Fracture of fifth metatarsal bone of right foot Mixed hyperlipidemia Essential hypertension Mild persistent asthma without complication Osteoarthritis Allergic rhinitis Diabetes HTN (hypertension) Surgical History Hx of tubal ligation History of appendectomy H/O shoulder replacement Family History Mother Stroke Father CKD (chronic kidney disease) Diabetes Sister Arthritis Social History (Updated 06/27/25 @ 09:22 by Shelly Marx LPN) Housing: House Alcohol intake: never Patient Tobacco Use Status: Never used Tobacco e-Cigarette/Vaping Use: Never Used service: No Current occupational status: retired Cognitive needs: No Hearing needs: No Vision needs: No Review of Systems Const Denies chills, Denies excessive sweating, Denies fever(s), Denies headache(s) and Denies night sweats Eyes Denies dry eyes, Denies irritation and Denies itchy eyes ENT Reports Normal hearing present, Denies headache(s), Denies nasal congestion, Denies nasal discharge, Reports post nasal drip and Denies sore throat Card Denies chest pain, Denies chest pain at rest, Denies chest pain with activity, Denies claudication, Denies leg edema, Denies dyspnea on exertion, Denies orthopnea and Denies paroxysmal nocturnal dyspnea Resp Denies chest congestion, Denies cough, Denies hemoptysis, Denies excessive phlegm production, Denies pain on inspiration, Denies pain with cough, Denies dyspnea on exertion and Denies stridor Musc Denies myalgias Neuro Reports Normal hearing present and Denies headache(s) Endo Denies excessive sweating Jose Guadalupe/Lymph Denies lymphadenopathy Aller/Immun Denies itchy eyes and Denies seasonal rhinorrhea Physical Exam Vital Signs: Last Vital Signs Pulse 76 06/27/25 09:13 BP 134/70 06/27/25 09:13 Pulse Ox 99 06/27/25 09:13 Oxygen Delivery Method Room Air 06/27/25 09:13 BMI result Body Mass Index 32.3 Const General: cooperative, healthy appearing, comfortable, no acute distress, well developed and alert Nutritional Appearance: obese Orientation/consciousness: patient oriented x3 Limitations: no limitations HEENT Head: Yes normal to inspection, Yes normocephalic and Yes atraumatic Ears: hearing grossly normal bilaterally and external ears normal Eyes General: appearance normal, both eyes and all related structures Eyelids: Yes eyelids normal Sclerae: sclerae normal EOM: EOMs intact bilaterally Neck Neck: Yes normal visual inspection and Yes no lymphadenopathy Lymphatic: no lymphadenopathy noted Chest Chest palpation & inspection: normal inspection of the chest Resp Effort & Inspection: normal respiratory effort, able to speak in complete sentences, no audible wheezes, no cough, no stridor, not tachypneic, no tripod positioning and no use of accessory muscles Auscultation: clear to auscultation bilaterally Cardio Jugular venous distension: no JVD Rate: regular rate Rhythm: regular rhythm Skin Other: warm, dry General skin exam: no rashes or lesions noted Neuro General: patient oriented x3 Cranial nerves: Yes Normal hearing present Cognition (Neuro): normal cognition Gait exam (Neuro): Normal gait present Extrem General: Yes normal to inspection, Yes capillary refill normal, Yes no clubbing, cyanosis or edema and Yes no pedal edema Psych Appearance: grossly normal and well kempt Speech and movement: Normal speech and movement present and Clear speech present Affect: normal affect Attitude: cooperative Thought process: Normal thought process present Thought content: Normal thought content present Insight: Good insight present (Psych) Judgement: Good judgement present (Psych) Assessment & Plan Assessment & Plan (1) Asthma: Code(s): J45.909 - Unspecified asthma, uncomplicated Category: Medical (2) Environmental allergies: Code(s): Z91.09 - Other allergy status, other than to drugs and biological substances Category: Medical Plan At this time patient reports intermittent wheezing and post nasal drip. Will refill albuterol MDI PRN. If she reports an increase in respiratory symptoms, she is aware to call. Recommended trialing Flonase for ongoing post nasal drip. Reviewed RAST which revealed multiple environmental allergens. Discussed ways to minimize allergen exposure. All questions were answered and patient is in agreement of plan. Will follow up in 3-6 months or sooner if needed. Medications: New albuterol sulfate 90 mcg/actuation 2 puffs inhalation Q4-6H PRN 1 ea 3RF shortness of breath or wheezing Coding Level of Care Code Est Pt Level 4 (70722) Diagnoses Asthma J45.909 Environmental allergies Z91.09
[2025-06-27 09:13] VITALS: BP 134/70; PULSE 76; O2SAT 99; BMI 32.3
--- OUTSIDE RECORDS SUMMARY | 2025-06-27 10:10 | XMS_ITS | Clinical Summary ---
Author Organization 175 [facility] Address [address] [place] [address] Phone Care Team Providers Care Officer Lieutenant Name Role Phone Reshma Vinson Primary Care Provider [phone] Allergies Active Allergy Reactions Criticality Noted Date [...] or gangrene 01/23/2025 Cerebellar ataxia ([facility] V24, [facility] V28) Overview (09/22/2024): Dr Hastings- yearly, EMG 2006 Nrml, MRI 2006 Non specific findings Allergic rhinitis 04/25/2019 Asthma 04/25/2019 Diabetes mellitus type 2, un complicated ([facility] V24, [facility] V28) 04/25/2019 Hypercalcemia 04/25/2019 Overview (09/22/2024): She notes she was told this a long time ago, unclear details Hypertension 04/25/2019 Hypertriglyceridemia 04/25/2019 Osteoarthritis 04/25/2019 Overview (09/22/2024): Cervical Spine, Hands/thumbs/right shoulder/knees Encounters Date Type Department Care Team Description 06/12/2025 10:45 AM EDT Office Visit General Surgery - [place] 175 [facility] [address] [place] [phone] Rosa Ricardo MD Umbilical hernia without obstruction or gangrene (Primary Dx) 05/31/2025 7:35 AM EDT Anesthesia Event [address] [phone] Nava Hamilton MD 05/31/2025 7:30 AM EDT - 05/31/2025 9:00 AM EDT Surgery [facility] OR [address] [place] [phone] Rosa Ricardo MD OPEN REPAIR UMBILICAL HERNIA W/MESH [[id number] (CPT )] 05/31/2025 5:55 AM EDT - 05/31/2025 10:37 AM EDT Hospital Encounter [facility] Main OR [address] [place] [address] Rosa Ricardo MD Umbilical hernia without obstruction [...] on HD Father diabetes, heart issues , [place]? Stroke Mother Arthritis Sister Relation Name Status [...] this topic Medical Devices Implanted Type Area Utility Systems Repairer Operator Device Identifier Shelf Expiration Date Model / Serial / Lot Mesh Ventralex St 1.7in Sm [place] W/Strap - Sna - [id number] Implanted:Qty: 1 on 05/31/2025 by Rosa Ricardo MD at [facility] Surgical Mesh Sling Implants N/A: Abdomen CR BARD - DAVOL DIV [id number] 11/10/2026 [id number] / NA / [id number] Procedures Procedure Name Priority Date/Time Associated Diagnosis Comments POCT GLUCOSE BLOOD Routine 05/31/2025 10 :02 AM EDT TISSUE EXAM Routine 05/31/2025 8:20 AM EDT Umbilical hernia without obstruction or gangrene TH AN LMA(NO CHARGE) Routine 05/31/2025 8:05 AM EDT [place] REPR ANT ABD HERNIA(S) ANY APPR INIT [...] - 100 mg/dL 05/31/2025 10:03 AM EDT [facility] Blood Capillary blood specimen / Unknown 05/31/2025 10:02 AM EDT 05/31/2025 10:05 AM EDT Rosa Ricardo MD LAB POINT OF CA RE TEST DOCKED DEVICE UNSOLICITED RESULTS Final Result [facility] [address] [place] [address], [place] [phone] * Tissue exam (05/31/2025 8:20 AM EDT) Final Diagnosis Omentum-hernia repair: -ADIPOSE TISSUE CONSISTENT WITH OMENTUM 06/01/2025 1:17 PM EDT [facility] Gross Description A. Omentum, incarcerated: Labeled incarcera, omentum . Received in formalin is a 29 g, 9.2 x 5.5 x 1.5 cm lobulated, capellan-yellow portion of well vascularized fibrofatty adipose tissue, consistent with omentum. Cut surfaces are glistening, yellow and lobular. No masses or lesions identified. Rodding Machine Tender sections are submitted in one cassette, two pieces. KR 06/01/2025 1:17 PM EDT [facility] Disclaimer Unless otherwise specified, all tissue is 10% NB formalin fixed and paraffin embedded. 06/01/2025 1:17 PM EDT [facility] Tissue Omentum structure / Unknown 05/31/2025 8:20 AM EDT 05/31/2025 10:42 AM EDT us Rosa Ricardo MD LAB PATHOLOGY ORDERABLE S Final Result [facility] [address] [place] [address], [place] [phone] * TH AN LMA(NO CHARGE) (05/31/2025 8:05 [...] GEMUSE QTc 442 ms GEMUSE P Wave [place] 52 degrees GEMUSE R [place] 40 degrees GEMUSE T [place] 32 degrees GEMUSE ECG Interpretation Normal sinus rhythm Normal ECG No previous ECGs available Confirmed by MD Jules Christopher ([id number]) on 05/24/2025 9:54:07 PM GEMUSE 05/24/2025 9:07 AM EDT 05/24/2025 9:54 PM EDT Result [facility] Rosa Ricardo MD ECG ORDERABLES Final R esult GEMUSE * Hepatitis C Screening (09/08/2023) [facility] Hepatitis C Screening abstracted Result [facility] Provider HEALTH MAINTENANCE Final Result * Annual BMP Blood Test (09/02/2023) [facility] Annual BMP Blood Test abstracted Result [facility] Provider HEALTH MAINTENANCE Final Result * (ABNORMAL) Hemoglobin A1c (09/02/2023) [facility] Hemoglobin A1C 6.8(A) <=6.5 % Blood Venous blood specimen / Unknown Result [facility] Provider LAB BLOOD ORDERABLES Eneida l Result * (ABNORMAL) Lipid panel (09/02/2023) [facility] LDL/HDL Ratio 5(A) 0 - 4 Triglycerides 375(A) 0 - 150 mg/dL Cholesterol 206(A) 0 - 200 mg/dL HDL 43 >=40 mg/dL LDL Cholesterol 88 0 - 100 mg/dL Blood Venous blood specimen / Unknown Result [facility] Provider LAB BLOOD ORDERABLES Eneida l Result * Urine Albumin Creatinine Ratio (03/02/2023) [facility] Urine Albumin Creatinine Ratio abstracted us Historical Provider MD HEALTH MAINTENANCE Final Result from Last 3 Months or Most Recently Relevant to Health Maintenance Insurance MEDICARE [facility] Advance Directives * Full Code [...] currently active code status orders. Care Teams Officer Lieutenant Relationship Specialty Start Date End Date Reshma Vinson PA [address] [place] [address] [place] [address] PCP - General Physician Nursing Informatics Analyst 01/09/25
== END 2025-06-27 09:44 | disposition home or self-care (01) ==
LOC: HO.HPSW 09:10
PROVIDERS: PCP Physician Assistant Medical; Visit Provider Nurse Practitioner Family
DX: J45.909 Unspecified asthma, uncomplicated (principal); Z91.09 Other allergy status, other than to drugs and biological substances
CPT/HCPCS: 99214

== ENCOUNTER → 2025-06-27 09:09 | Outpatient (BNVA) | payer MEDICARE, SELFPAY | PROVIDERS: PCP Physician Assistant Medical; Visit Provider Nurse Practitioner Family | DX: J45.909 Unspecified asthma, uncomplicated (principal); Z91.09 Other allergy status, other than to drugs and biological substances | CPT/HCPCS: 99212 ==

== ENCOUNTER 2025-07-12 08:57 | Outpatient (AMB) | payer MEDICARE, SELFPAY ==
--- NOTE | 2025-07-12 09:05 | A.OFFPC_ITS ---
Vital Signs 07/12/25 09:14 Height 5 ft 5 in Weight 192 lb BMI 31.9 BP 124/72 Blood Pressure Location Lt brachial Position Sitting Pulse 82 Pulse Source Pulse Oximeter Temp 98.9 F Temp Source Temporal Artery Scan Pulse Oximetry (%) 96 Oxygen Delivery Method Room Air Intake Visit Reasons: follow up 30 minutes Intake Note: Eloisa presents in the office for a follow up. Patient has seen endocrinology, gastroenterology and pulmonlogy. Allergies diclofenac Allergy (Unknown, Verified 07/12/25 09:10) Unknown hydromorphone Allergy (Unknown, Verified 07/12/25 09:10) Nausea and Vomiting NSAIDS (Non-Steroidal Anti-Inflamma Allergy (Unknown, Verified 07/12/25 09:10) Diarrhea Tobacco use date assessed: 07/12/25 Fall risk assessment: No Falls in past year Last assessed Fall Risk: 07/12/25 Dental Screening Dental Screen Date: 07/12/25 Did you have a dental visit in the last 12 months?: No Did you have a dental problem in the last 6 months where you did not have access to dental care?: No Was dental information given to patient?: Patient has dentist HPI HPI Comments History of Present Illness Details This is a 75 year old female with a pmhx of controlled type 2 DM, HLD, HTN, asthma, hypercalcemia, elevated LFTs, OAB presenting for follow up. Type 2 diabetes-followed by endocrinology. Hemoglobin A1c 6.5%. She is checking blood sugars but not every day. She reports eye exam is up-to-date. End of May Dr. Tracy-no diabetic complications. Denies hypoglycemia. She is seeing endocrinology for evaluation of hypercalcemia. She has a follow up scheduled. The patient had an umbilical hernia repair with mesh on 05/31/2025 at [place]. Asthma-this is still controlled on Singulair. She is not taking and I CS anymore. Patient says she is up-to-date with vaccines. Elevated LFTs-negative hepatitis a, B and C. She had an ultrasound on 08/08/2024 which demonstrated hepatic steatosis and possible underlying hepatocellular disease with subtle micro lobulation of the hepatic contour. She is followed by Gastroenterology. 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 Put on vitamin b supplements. She was taking a B complex vitamin because she had difficulty finding the specific vitamin that was recommended, but her B12 level was elevated so she stopped this, and now she is taking only B50. HTN treated with Lisinopril. HLD treated with Rosuvastatin. LDL is above goal. She also endorses difficulty sleeping. She can fall asleep sometimes, but sometimes it is difficult. She also wakes up after 4-5 hours. Advised patient she can try melatonin starting with 3 mg and a maximum dose of 10 mg. She is due for a mammogram. This is sent to [facility]. She wanted to know why on her notes it says no rashes when she has a chronic rash on her legs for years. She says that it waxes and wanes and it is itchy and dry sometimes. It does not bother her with the point where she would like to see Dermatology or have a prescription for it. A large part of our discussion today was to discuss lab results ordered by her specialists. There were also questions about the EMR and provider documentation. She has joint pain in her fingers in his concerned about arthritis. She wanted to know about her positive JOSELYN level which was a low titer. There is no family history of lupus. ROS: Constitutional: No fevers or chills Respiratory: No shortness of breath, cough or sputum production. Cardiovascular: No chest pain, chest pressure or chest discomfort. No palpitations or pedal edema. Gastrointestinal: No anorexia, nausea, vomiting or diarrhea. No abdominal pain or blood in stool. Neurologic: No headache, dizziness, syncope, unilateral weakness, ataxia, numbness or tingling in the extremities. Physical exam: Constitutional: Alert, in no distress Neck: Supple, Full range of motion. No lymphadenopathy. No palpable thyroid masses. Respiratory: Clear to auscultation. Cardiovascular: S1 S2 regular. No murmurs. Fingers: Finger joint nodules and arthritic changes noted bilaterally. No erythema. Skin: Mildly erythematous, mildly dry rash on the bilateral lower legs. No papules or pustules. [facility] Medical History (Updated 07/13/25 @ 09:47 by IGOR Dorsey) Joint pain Dermatitis Renal cyst Nephrolithiasis Controlled type 2 diabetes mellitus Umbilical hernia Hepatic steatosis Serum calcium elevated Elevated LFTs Uncontrolled type 2 diabetes mellitus with hyperglycemia Ataxia Perennial allergic rhinitis Fracture of fifth metatarsal bone of right foot Mixed hyperlipidemia Essential hypertension Mild persistent asthma without complication Osteoarthritis Allergic rhinitis Diabetes HTN (hypertension) Surgical History Hx of tubal ligation History of appendectomy H/O shoulder replacement Family History Mother Stroke Father CKD (chronic kidney disease) Diabetes Sister Arthritis Social History (Updated 07/12/25 @ 09:14 by Shanice Jones CMA) Housing: House Alcohol intake: never Patient Tobacco Use Status: Never used Tobacco e-Cigarette/Vaping Use: Never Used service: No Current occupational status: retired Cognitive needs: No Hearing needs: No Vision needs: No Questionnaire PHQ-9 Over the last 2 weeks, how often have you been bothered by any of the following problems? 1. Little interest or pleasure in doing things: not at all 2. Feeling down, depressed, or hopeless: not at all 3. Trouble falling or staying asleep, or sleeping too much: several days 4. Feeling tired or having little energy: not at all 5. Poor appetite or overeating: not at all 6. Feeling bad about yourself - or that you are a failure or have let yourself or your family down: not at all 7. Trouble concentrating on things, such as reading the newspaper or watching television: not at all 8. Moving or speaking so slowly that other people could have noticed. Or the opposite - being so fidgety or restless that you have been moving around a lot more than usual: not at all 9. Thoughts that you would be better off or of hurting yourself in some way: not at all Total score: 1 Source: Developed by Drs. Jones Moy, Jessica Jasmine, Dustin Che and colleagues, with an educational vane from [email or web address]. Thrive Questionnaire Date Thrive assessed: 01/03/25 I am a: Patient What is your living situation today?: I have a steady place to live Within the past 12 months, did the food you bought not last and you didn't have the money to get more?: Never true Within the past 12 months, did you worry whether your food would run out before you got money to buy more?: Never true Do you have trouble paying for medicines?: No Do you have trouble getting transportation to medical appointments?: No Do you have trouble paying your heating and electricity bill?: No Do you have trouble taking care of your child, family member or friend?: No Do you have trouble with day-to-day activities such as bathing, preparing meals, shopping, managing finances, etc.?: No Are you currently unemployed and looking for a job?: No Are you interested in more education?: No Please select the resources that you would like help with: None Currently or been in a relationship where the following occur: No concerns reported THRIVE Score: 0 ROEL-7 AMB Questionnaire ROEL-7 Date ROEL - 7 assessed: 01/08/25 Feeling nervous, anxious, or on edge: 0 = Not at all Not being able to stop or control worryin = Not at all Worrying too much about different things: 0 = Not at all Trouble relaxin = Not at all Being so restless that it is hard to sit still: 0 = Not at all Becoming easily annoyed or irritable: 0 = Not at all Feeling afraid as if something awful might happen: 0 = Not at all Total ROEL-7 score (0-4 normal; 5-9 mild; 10-14 moderate; 15-21 severe): 0 Source: Developed by Drs. Jones Moy, Jessica Jasmine, Dustin Che and colleagues, with an educational vane from [email or web address]. Physical exam (Primary Care) Vital Signs: Last Vital Signs Temp 98.9 F 07/12/25 09:14 Pulse 82 07/12/25 09:14 BP 124/72 07/12/25 09:14 Pulse Ox 96 07/12/25 09:14 Oxygen Delivery Method Room Air 07/12/25 09:14 BMI result Body Mass Index 31.9 Tobacco/Smoking Status: Tobacco use Status Tobacco use date assessed 07/12/25 07/12/25 09:16 Patient Tobacco Use Status Never used Tobacco 07/12/25 09:16 e-Cigarette/Vaping Use Never Used 07/12/25 09:14 PHQ-9: PHQ-9 Score PHQ-9: Total score 1 07/12/25 09:33 Thrive Assessment: Date of Thrive Assessment Date Thrive assessed 01/03/25 07/12/25 09:07 Currently or been in a relationship where the following occur: No concerns reported Coding Level of Care Code Est Pt Level 5 (71713) Complex EM visit Add On G2211 Diagnoses Mixed hyperlipidemia E78.2 Essential hypertension I10 Mild persistent asthma without complication J45.30 Hepatic steatosis K76.0 Serum calcium elevated E83.52 Controlled type 2 diabetes mellitus without complication, without long-term current use of insulin E11.9 Diabetes mellitus termination clerk insulin use: without senior living use Diabetes mellitus complication status: without complication Dermatitis L30.9 Arthralgia of both hands M25.541; M25.542 Joint pain location: hand Laterality: bilateral Time Spent (min) 65 Comment Direct care, completing documentation, chart review Assessment & Plan Assessment & Plan (1) Mixed hyperlipidemia: Code(s): E78.2 - Mixed hyperlipidemia Category: Medical Plan: Declined medication increase. Dietary recommendations reviewed. Continue rosuvastatin. (2) Essential hypertension: Code(s): I10 - Essential (primary) hypertension Category: Medical Plan: Continue lisinopril. (3) Mild persistent asthma without complication: Code(s): J45.30 - Mild persistent asthma, uncomplicated Category: Medical Plan: Stable. Continue albuterol as needed and Singulair. (4) Hepatic steatosis: Code(s): K76.0 - Fatty (change of) liver, not elsewhere classified Category: Medical Plan: Followed by Gastroenterology. (5) Serum calcium elevated: Code(s): E83.52 - Hypercalcemia Category: Medical Plan: She has an upcoming appointment with endocrinology. (6) Controlled type 2 diabetes mellitus: Code(s): E11.9 - Type 2 diabetes mellitus without complications Category: Medical Qualifiers: Diabetes mellitus termination clerk insulin use: without termination clerk use Diabetes mellitus complication status: without complication Qualified Code(s): E11.9 - T ype 2 diabetes mellitus without complications Plan: Continue current regimen. Followed by endocrinology. (7) Dermatitis: Code(s): L30.9 - Dermatitis, unspecified Category: Medical Plan: Looks like mild eczematous rash. Paitent defers referral to dermatology. Recommended emollients. (8) Joint pain: Code(s): M25.50 - Pain in unspecified joint Category: Medical Qualifiers: Joint pain location: hand Laterality: bilateral Qualified Code(s): M25.541 - Pain in joints of right hand; M25.542 - Pain in joints of left hand Plan: We will check rheumatoid factor and repeat JOSELYN. Plan Repeat lab results that were of concern today including PT, B12 and JOSELYN. Orders: Orders Rheumatoid Factor 07/12/25 M25.50 - Pain in unspecified joint JOSELYN Reflex Titer and Pattern 07/12/25 M25.50 - Pain in unspecified joint Prothrombin Time INR 07/12/25 R79.1 - Abnormal coagulation profile Vitamin B12 07/12/25 Z91.89 - Other specified personal risk factors, not elsewhere classified MM screening mammo BI 07/12/25 Z12.31 - Encounter for screening mammogram for malignant neoplasm of breast
[2025-07-12 09:14] VITALS: BP 124/72; PULSE 82; TEMP 37.2; O2SAT 96; BMI 31.9
--- OUTSIDE RECORDS SUMMARY | 2025-07-12 09:59 | XMS_ITS | Clinical Summary ---
Author Organization [facility] Address [address] [place] [address] Phone Care Team Providers Care Nurse Chemical Dependency Name Role Phone Reshma Vinson Primary Care Provider [phone] Allergies Active Allergy Reactions Criticality Noted Date Comments Diclofenac Sodium Unknown 07/06/2019 Hydromorphone Nausea And Vomiting 07/27/2019 dizzy Hydromorphone Hcl 09/23/2022 Other Wheezing,Runny nose 04/25/2019 Seasonal Allergies Animal dander house dust MULTIPLE TREE-RECENTLY HAD ALLERGY TESTING Medications rosuvastatin (CRESTOR) 5 mg tablet TAKE 1 TABLET BY MOUTH EVERY DAY 4 Active lisinopril (PRINIVIL,ZESTRIL ) 40 mg tablet Take 1 Tablet by mouth daily. 4 Active albuterol HFA (PROAIR HFA ; PROVENTIL HFA ; VENTOLIN HFA) 90 mcg/actuation inhaler Inhale 2 Puffs into the lungs every 4 hours as needed for Cough or Wheezing. 4 Active montelukast (SINGULAIR) 10 mg tablet TAKE 1 TABLET BY MOUTH EVERYDAY AT BEDTIME 4 Active turmeric root extract 500 mg capsule Take by mouth. Active multivit-min/iron /folic acid/K (ADULTS MULTIVITAMIN ORAL) Multiple Vitamins-Mine rals (Multivitamin Adult, Minerals,) Tab Take 1 tablet [...] Root-Magnesium) 150 mg tablet Take by mouth. Active Active Problems Problem Noted Date Diagnosed Date Umbilical hernia without obstruction or gangrene 01/23/2025 Cerebellar ataxia ([facility] V24, [facility] V28) Overview (09/22/2024): Dr Hastings- yearly, EMG 2006 Nrml, MRI 2006 Non specific findings Allergic rhinitis 04/25/2019 Asthma 04/25/2019 Diabetes mellitus type 2, un complicated ([facility] V24, [facility] V28) 04/25/2019 Hypercalcemia 04/25/2019 Overview (09/22/2024): She notes she was told this a long time ago, unclear details Hypertension 04/25/2019 Hypertriglyceridemia 04/25/2019 Osteoarthritis 04/25/2019 Overview (09/22/2024): Cervical Spine, Hands/thumbs/right shoulder/knees Encounters Date Type Department Care Team Description 06/12/2025 10:45 AM EDT Office Visit General Surgery [address] [place] [id number] Rosa Ricardo MD Umbilical hernia without obstruction or gangrene (Primary Dx) 05/31/2025 7:35 AM EDT Anesthesia Event [facility] OR [address] [place] [id number] Nava Hamilton MD 05/31/2025 7:30 AM EDT - 05/31/2025 9:00 AM EDT Surgery [facility] OR [address] [place] [phone] Rosa Ricardo MD OPEN REPAIR UMBILICAL HERNIA W/MESH [[id number] (CPT )] 05/31/2025 5:55 AM EDT - 05/31/2025 10:37 AM EDT Hospital Encounter [facility] OR [address] [place] [address] Rosa Ricardo MD Umbilical hernia without obstruction [...] HISTORICAL TUBAL LIGATION OTHER SURGICAL HISTORY PROCEDURE: [facility] TX ECTOPIC ABDOMINAL/VAGINAL APPR; COMMENT: removal of tube/ovary APPENDECTOMY PROCEDURE: HISTORICAL APPENDECTOMY OTHER SURGICAL HISTORY 06/08/2018 Right PROCEDURE: VA ARTHROPLASTY GLENOHUMERAL JOINT TOTAL SHOULDER; COMMENT: Dr Armen HART TOTAL SHOULDER ARTHROPLASTY OTHER SURGICAL HISTORY Left WRIST Medical History Medical History Date Comments H/O shoulder replacement 07/06/2019 DX:H/O shoulder replacement; COMMENT: 05/2018 Right Diabetes mellitus type 2, uncomplicated ([facility] V24, [facility] V28) 04/25/2019 DX:Diabetes mellitus type 2, [...] on HD Father diabetes, heart issues , [place]? Stroke Mother Arthritis Sister Relation Name Status [...] this topic Medical Devices Implanted Type Area Web Marketing Specialist Device Identifier Shelf Expiration Date Model / Serial / Lot Mesh Ventralex St 1.7in Sm Crawford W/Strap - Sna - [id number] Implanted:Qty: 1 on 05/31/2025 by Rosa Ricardo MD at [facility] Surgical Mesh Sling Implants N/A: Abdomen CR BARD - DAVOL DIV [id number] 11/10/2026 [id number] / NA / [id number] Procedures Procedure Name Priority Date/Time Associated Diagnosis Comments POCT GLUCOSE BLOOD Routine 05/31/2025 10 :02 AM EDT TISSUE EXAM Routine 05/31/2025 8:20 AM EDT Umbilical hernia without obstruction or gangrene TH AN LMA(NO CHARGE) Routine 05/31/2025 8:05 AM EDT VA REPR ANT ABD HERNIA(S) ANY APPR INIT INCL IMPL < 3 CM REDUCIBLE 05/31/2025 7:35 AM EDT Umbilical hernia without obstruction or gangrene Special Needs Umbilical Hernia Repair Open With Mesh -- Asking 60 minutes for this case. POCT GLUCOSE BLOOD Routine 05/31/2025 6: 13 AM EDT ECG 12-LEAD Routine 05/24/2025 9:07 AM EDT Umbilical hernia without obstruction or gangrene Chronic cough HM HEPATITIS C SCREENING Routine 09/08/2023 ANNUAL BMP [...] - 100 mg/dL 05/31/2025 10:03 AM EDT [facility] Blood Capillary blood specimen / Unknown 05/31/2025 10:02 AM EDT 05/31/2025 10:05 AM EDT us Rosa Ricardo MD LAB POINT OF CA RE TEST DOCKED DEVICE UNSOLICITED RESULTS Final Result [facility] [address] [place] [address], [place] [phone] * Tissue exam (05/31/2025 8:20 AM EDT) [...] and lobular. No masses or lesions identified. Trigonometry Tutor sections are submitted in one cassette, two [...] MD LAB PATHOLOGY ORDERABLE S Final Result [facility] [address] [place] [address], * TH AN LMA(NO CHARGE) (05/31/2025 8:05 [...] GEMUSE QTc 442 ms GEMUSE P Wave Hammond 52 degrees GEMUSE R Hammond 40 degrees GEMUSE T Hammond 32 degrees GEMUSE ECG Interpretation Normal sinus rhythm Normal ECG No previous ECGs available Confirmed by MD Jules Christopher ([id number]) on 05/24/2025 9:54:07 PM GEMUSE 05/24/2025 9:07 AM EDT 05/24/2025 9:54 PM EDT Result [facility] Rosa Ricardo MD ECG ORDERABLES Final R esult GEMUSE * Hepatitis C Screening (09/08/2023) [facility] Hepatitis C Screening abstracted Result [facility] HEALTH MAINTENANCE Final Result * Annual BMP Blood Test (09/02/2023) [facility] Annual BMP Blood Test abstracted Result [facility] HEALTH MAINTENANCE Final Result * (ABNORMAL) Hemoglobin A1c (09/02/2023) [facility] Hemoglobin A1C 6.8(A) <=6.5 % Blood Venous blood specimen / Unknown Result [facility] Provider LAB BLOOD ORDERABLES Eneida l Result * (ABNORMAL) Lipid panel (09/02/2023) [facility] LDL/HDL Ratio 5(A) 0 - 4 Triglycerides 375(A) 0 - 150 mg/dL Cholesterol 206(A) 0 - 200 mg/dL HDL 43 >=40 mg/dL LDL Cholesterol 88 0 - 100 mg/dL Blood Venous blood specimen / Unknown Result [facility] Provider LAB BLOOD ORDERABLES Eneida l Result * Urine Albumin Creatinine Ratio (03/02/2023) [facility] Urine Albumin Creatinine Ratio abstracted Result [facility] Leela HARRISON HEALTH MAINTENANCE Final Result from Last 3 Months or Most Recently Relevant to Health Maintenance Insurance MEDICARE [facility] Advance Directives * Full Code [...] currently active code status orders. Care Teams Nurse Chemical Dependency Relationship Specialty Start Date End Date Reshma Vinson PA [address] [place] [address] [place] [address] PCP - General Physician Retail Planner 01/09/25
== END 2025-07-12 10:16 | disposition home or self-care (01) ==
LOC: HO.HMCFM 08:58
PROVIDERS: PCP Physician Assistant Medical; Visit Provider Physician Assistant Medical
DX: E78.2 Mixed hyperlipidemia (principal); E11.620 Type 2 diabetes mellitus with diabetic dermatitis; I10 Essential (primary) hypertension; J45.30 Mild persistent asthma, uncomplicated; K76.0 Fatty (change of) liver, not elsewhere classified; E83.52 Hypercalcemia; L30.9 Dermatitis, unspecified; M25.541 Pain in joints of right hand; M25.542 Pain in joints of left hand

== ENCOUNTER 2025-07-12 08:57 | Outpatient (REF) | payer MEDICARE, SELFPAY ==
[2025-07-12 11:28] LABS: INTERNATIONAL NORM RATIO 1.0 (0.9-1.1); Prothrombin Time 11.0 SEC (10.9-12.4)
[2025-07-12 12:28] LABS: Vitamin B12 887 pg/mL (200-900)
--- OUTSIDE RECORDS SUMMARY | 2025-07-12 12:34 | XMS_ITS | Data Portability ---
Author Organization [facility] [id number] Address [address] [place] [address] Assessment No assessment recorded. Plan of Treatment Reminders Order Date Submit Date Provider Last Modified By Organization Details Last Modified Time Details Appointments None recorded. Lab None recorded. Referral None recorded. Procedures None recorded. Surgeries None recorded. Imaging None recorded. Medication Orders Advair Diskus 250 mcg-50 mcg/dose powder for inhalation 2023 024 JAQUELINE [id number], [address] [place], [address], 4 13:28:23 prednisone 50 mg tablet 2023 024 [email or web address] [facility][id number], [address] [place], [address], 4 17:02:25 Patient TargetsNo targets recorded. Patient InstructionsNo instructions recorded. Reason for Referral None Reported. Problems Name Problem SNOMED Code Status Onset Date Resolution Date Notes Provider Name and Address Organization Details Recorded Time Hypertensive disorder 14186433 Active Vidhya Suresh null, PA - [facility] 4 13:07:32 Asthma 776296689 Active Vidhya Suresh null, [place] - [facility] 4 13:07:59 Cough 31856413 Active 2023 Rodriguez Matthews, DO [address] [place], [address] , [place] - [facility] 4 13:27:38 [...] Name and Address Organization Details Recorded Time 624911 diclofena c Not available dizziness Not available [...] verbal numeric rating [Score] - Reported Systolic And Diastolic Provider Name and Address Organization Details Last Updated DateTime 4 165.1 cm 34.9 kg/m2 25984.4 g 97 [degF] 95 % 95 % 20 /min 81 /min 0 182/85 mm[Hg] Vidhya COTSA - [facility] 4 13:05:03 Social History Question Answer Notes LastModified by Choggerat ion Details LastModified Time Tobacco Smoking Status [...] Diagnosis SNOMED-CT Code Diagnosis ICD10 Code Diagnosis IMO Codes Diagnosis Note [id number] _[facility] [address] [phone] 08/12/2018 11:38:37 08/12/2018 12:24:36 [id number] [place] [address] [address] 03/01/2024 12:54:51 03/01/2024 13:30:24 Cough [id number] R05.9 See pcp in 3-4 days. Go [...] ID Guarantor Name 03/01/2024 1 [place] [employer] Eloisa Rivero [id number] Eloisa Rivero 03/01/2024 2 [place] [id number] Eloisa Rivero [id number] Eloisa Rivero Notes Date Note Type [...] Matthews DO [address] [place], [address], [place] - [facility] 03/01/2024 17:02:40 OBGyn Episode No OBEpisode recorded.
[2025-07-24 07:23] LABS: Anti Nuclear Antibody Screen NEGATIVE (NEGATIVE)
== END 2025-07-12 08:58 | disposition home or self-care (01) ==
LOC: HO.WFDLDS 08:57
PROVIDERS: PCP Physician Assistant Medical; Visit Provider Physician Assistant Medical
DX: R79.1 Abnormal coagulation profile (principal); Z91.89 Other specified personal risk factors, not elsewhere classified; M25.50 Pain in unspecified joint; E78.2 Mixed hyperlipidemia; I10 Essential (primary) hypertension; J45.30 Mild persistent asthma, uncomplicated; K76.0 Fatty (change of) liver, not elsewhere classified; E83.52 Hypercalcemia; E11.9 Type 2 diabetes mellitus without complications; L30.9 Dermatitis, unspecified; M25.541 Pain in joints of right hand; M25.542 Pain in joints of left hand
CPT/HCPCS: 36415; 82607; 85610; 86038; 86431; 99212

== ENCOUNTER 2025-08-08 08:46 | Outpatient (AMB) | payer MEDICARE, SELFPAY ==
--- NOTE | 2025-08-08 08:52 | A.OFFVIS_ITS ---
Vital Signs 3 08/08/25 08:55 Height 5 ft 5 in Weight 198 lb 6.656 oz BMI 33.0 BP 142/78 H Blood Pressure Location Rt brachial Position Sitting Pulse 102 H Pulse Source Pulse Oximeter Intake Visit Reasons: Hypercalcemia Intake Note: Patient presents here today for a follow-up on Hypercalcemia Workup 24 Hr Urine Collection: Completed on 06/19/2025 Accompanied by: Self / Same As Patient Allergies diclofenac Allergy (Unknown, Verified 07/12/25 09:10) Unknown hydromorphone Allergy (Unknown, Verified 07/12/25 09:10) Nausea and Vomiting NSAIDS (Non-Steroidal Anti-Inflamma Allergy (Unknown, Verified 07/12/25 09:10) Diarrhea HPI Comments Details: 74-year-old female with PMH HTN, DM type 2, HLDof here today for fup of hypercalcemia. Last seen by for DM on 04/11/2025, and by Dr. Ahumada on 02/23/25. This is my 1st time seeing this patient HPI from initial visit Chart reviewed on and shows calcium level has been ranging between 10.8-11.2, with most recent levels from October 2024 with a calcium of 11.1, albumin of 4.5, corrected calcium would be 10.6. PTH from 11/10/2024 non suppressed at 57. No vitamin-D level. Kidney function from June 2024 with EGFR of 52, creatinine 1.03. CKD stage 3 likley from HTN. 1,25 dihydroxy vitamin-D level from December 2024 normal. Bone density 05/26/2024: Normal bone density with T-score 2.2 at the spine, 0.4 at the total hip, 0.5 at the femoral neck and-0 point with a 1/3 forearm. No constipation, no abd pain, no muscle pains, has joint pain due to arthritis, denies memory issues or brain fog, no polyuria Fracture: 5th metatarsal, February 03, tripped on two steps, no other fractures. Kidney stones : in her 50s, passed a kidney stone, none recently. Milk: a mug daily, cheese most days, yogurt 4-5 times a day No family history of kidney problems or kidney stones supplements: b12, fish oil, multivitamin with calcium for over a year now switched multivitamin to something without calcium, was taking D3 with calcium for about 1-2 years, doesnt remember the dose now stopped Aug 2024. 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 Ultrasound of the kidneys done 02/08/2025 showed a 1 cm left lower pole renal calculus. No hydronephrosis. There are multiple cysts in the left kidney the largest at the upper pole measuring 1.6 cm. Interval history 08/08/2025 She reports feeling overall well No recent symptomatic kidney stone No recent falls or fractures since last visit Balance issues, mostly about walking in a straight line in her opinion No recent changes in her diet Physical exam General: sitting comfortably in no acute distress HEENT: normocephalic/atraumatic, Neck: supple Cardiac: normal heart sounds Pulm: normal breath sounds B/L, no added breath sounds Abd: not distended, no tenderness Extremities: no edema, no signs of myxedema Neuro: AAO x3, Speech: normal, no facial droop, moving all 4 extremities Laboratory Tests 06/19/25 06/19/25 09:01 10:37 Sodium 140 Potassium 4.3 BUN 21 H Creatinine 0.85 Hemoglobin A1c % 6.5 H Calcium 10.7 H Ionized Calcium 5.8 H Phosphorus 3.0 AST 33 H ALT 30 Alkaline Phosphatase 92 Total Protein 7.9 Albumin 4.8 25-OH Vitamin D Total 51.9 PTH Intact 43.4 Ur 24 Hour Volume 2900 Ur Creatinine mg/dL 39.59 Ur Creatinine 24 Hour 1.1 Ur Calcium 24 Hr 186 Calcium/Creat 24 Hr 145 Laboratory Tests 07/13/24 09/19/24 11/10/24 12:48 10:59 10:33 Creatinine 1.03 Estimated GFR 52 Calcium 11.2 H 10.8 H 11.1 H Albumin 4.1 4.5 1,25 Dihydroxy Vit D 1,25 Dihydroxy Vit D2 1,25 Dihydroxy Vit D3 PTH Intact 57.0 12/18/24 10:52 Creatinine Estimated GFR Calcium Albumin 1,25 Dihydroxy Vit D 46 1,25 Dihydroxy Vit D2 <8 1,25 Dihydroxy Vit D3 46 PTH Intact Laboratory Tests 01/17/25 01/17/25 06:55 12:02 Creatinine 0.80 Estimated GFR > 60 Calcium 10.9 H Ionized Calcium 5.8 H Phosphorus 2.5 L Magnesium 1.9 Total Protein (PEP) 7.5 Albumin 4.6 Albumin (PEP) 4.4 Vctoh-2-Tyrzlnnol 0.2 Mfqus-1-Ufgommbvm 0.9 Qjbc-4-Ownqvtbk 0.6 Uxcu-4-Zqzmjkrg 0.6 H Gamma Globulins 0.9 25-OH Vitamin D Total 63.1 PTH Intact 62.5 Ur 24 Hour Volume 1675 Ur Creatinine mg/dL 54.37 Ur Creatinine 24 Hour 0.9 L Ur Sodium 24 Hour 130.7 Calcium/Creat 24 Hr 163 IgG Total 1083 IgA Total 428 H IgM 59 Liver Elastography 06/15/25 FINDINGS: Right kidney: The right kidney measures 11.4 x 3.9 x 5.3 cm. Renal parenchymal echotexture and thickness are normal. There are no masses. There is an extrarenal pelvis. There is no hydronephrosis or renal calculi. Left Kidney: The left kidney measures 10.9 x 4.9 x 4.7 cm. Renal parenchymal echotexture and thickness are normal. There are multiple cysts, the largest of which is at the upper pole measuring 1.6 x 1.1 x 1.5 cm. There is a 6 x 4 x 10 mm calculus at the lower pole. There is no hydronephrosis. IMPRESSION: 6 x 4 x 10 mm left lower pole renal calculus. No hydronephrosis. Left renal cysts as described. EXAMINATION: US KIDNEY BILATERAL 02/08/25 HISTORY: E83.52 - Hypercalcemia TECHNIQUE: Real-time grayscale ultrasound imaging of the kidneys was performed and images were reviewed. COMPARISON: Correlation is made with the right upper quadrant ultrasound dated 08/08/2024. FINDINGS: Right kidney: The right kidney measures 11.4 x 3.9 x 5.3 cm. Renal parenchymal echotexture and thickness are normal. There are no masses. There is an extrarenal pelvis. There is no hydronephrosis or renal calculi. Left Kidney: The left kidney measures 10.9 x 4.9 x 4.7 cm. Renal parenchymal echotexture and thickness are normal. There are multiple cysts, the largest of which is at the upper pole measuring 1.6 x 1.1 x 1.5 cm. There is a 6 x 4 x 10 mm calculus at the lower pole. There is no hydronephrosis. US/US renal BI IMPRESSION: 6 x 4 x 10 mm left lower pole renal calculus. No hydronephrosis. Left renal cysts as described. Electronically signed by: Jones Antonio MD 02/08/2025 03:24 PM EDT [facility] Medical History Joint pain Dermatitis Renal cyst Nephrolithiasis Controlled type 2 diabetes mellitus Umbilical hernia Hepatic steatosis Serum calcium elevated Elevated LFTs Uncontrolled type 2 diabetes mellitus with hyperglycemia Ataxia Perennial allergic rhinitis Fracture of fifth metatarsal bone of right foot Mixed hyperlipidemia Essential hypertension Mild persistent asthma without complication Osteoarthritis Allergic rhinitis Diabetes HTN (hypertension) Surgical History Hx of tubal ligation History of appendectomy H/O shoulder replacement Family History Mother Stroke Father CKD (chronic kidney disease) Diabetes Sister Arthritis Social History Housing: House Alcohol intake: never Patient Tobacco Use Status: Never used Tobacco e-Cigarette/Vaping Use: Never Used service: No Current occupational status: retired Cognitive needs: No Hearing needs: No Vision needs: No Physical Exam Vital Signs: Last Vital Signs Pulse 102 H 11/26/25 08:55 BP 162/76 H 08/08/25 08:55 BMI result Body Mass Index 33.0 Assessment & Plan Assessment & Plan (1) Serum calcium elevated: Code(s): E83.52 - Hypercalcemia Category: Medical Plan: 74-year-old female coming in today for follow up of hypercalcemia. Chart reviewed on and shows calcium level has been ranging between 10.8-11.2, with most recent levels from October 2024 with a calcium of 11.1, albumin of 4.5, corrected calcium would be 10.6. PTH from 11/10/2024 non suppressed at 57. No vitamin-D level. Kidney function from June 2024 with EGFR of 52, creatinine 1.03. CKD stage 3 likley from HTN. 1,25 dihydroxy vitamin-D level from December 2024 normal. Given PTH is inappropriately normal, most likely differential is primary hyperparathyroidism, or fHH. Though given age of presentation, unlikely FHH. Labs done 01/17/2025 showed normal kidney function, calcium of 10.9, albumin of 4.6, corrected calcium would be 10.3, ionized calcium elevated at 5.8, phosphorus low at 2.5, magnesium of 1.9, normal serum protein electrophoresis and immunofixation, vitamin-D level of 63.1, PTH inappropriately normal at 62.5, 24 hour urine calcium could not be calculated appropriately because she reported 21 hours of collection but calcium creatinine ratio was normal at 163. I went back and forth with the lab regarding giving me the numbers for the calcium in the urine, however was unable to obtain, so could not calculate fractional excretion of calcium but that calcium creatinine ratio at least shows that she does not have hypercalciuria. Ultrasound of the kidneys done 02/08/2025 showed a 1 cm left lower pole renal calculus. No hydronephrosis. There are multiple cysts in the left kidney the largest at the upper pole measuring 1.6 cm. Given PTH is not suppressed, unlikely to be non PTH mediated hypercalcemia, usually in patients with hypercalcemia of malignancy, PTH is suppressed and calcium levels are much higher. She is also relatively healthy, has lost 35 lb with diet measures to control her diabetes but otherwise doing well. Normal serum immunofixation and electrophoresis ruled out MGUS/multiple myeloma. Again though in those cases PTH is usually suppressed. Granulomatous diseases which involve elevated 125 dihydroxy vitamin-D level, given her 125 dihydroxy vitamin- D level is normal, this is also not a differential. No long periods of immobilization. Does not seem like she was taking a lot of vitamin-D in excess or calcium supplementation. Normal vitamin-D level. She was on some amount of supplementation which she stopped in August 2024. TSH is normal from June 2024. Normal alkaline phosphatase. We again discussed with the patient that most recently her calcium levels are not that elevated as before, to keep up with good hydration. She has now 2 non- obstructive kidney stone, 1 of them been new from the [place] in January/2025. We discuss that given new stone formations, it it not unreasonable to have endocrine surgery evaluation. Another possibility is to continue to monitor with 6-12 months kidney US and DEXA Q2 years. We discussed that the parathyroidectomy would be preventative to avoid further nephrolitiasis or potentially nephrocalcinosis. Bone density was normal from May 2024. She would like to wait and research the available endocrine surgeons before deciding. We did discuss that although is not an urgent but is recommended in our opinion. Plan: -She will let us know when she is -sent a message to PCP regarding renal cysts and informed the patient. -follow up in 6 month for hypercalcemia -advised to maintain calcium intake in diet however no calcium supplements Plan 35 minutes spent reviewing previous records, labs, imaging, education and documenting in the chart Coding Level of Care Code Est Pt Level 4 (18277) Diagnoses Serum calcium elevated E83.52
[2025-08-08 08:55] VITALS: BP 142/78; PULSE 102; BMI 33.0
--- OUTSIDE RECORDS SUMMARY | 2025-08-08 09:09 | XMS_ITS | Clinical Summary ---
Author Organization [address] [facility] Address [address] [place] [address] Phone Care Team Providers Care Prosthetic Lab Technician Name Role Phone Reshma Vinson Primary Care Provider [phone] Allergies Active Allergy Reactions Criticality Noted Date [...] without obstruction or gangrene 01/23/2025 Cerebellar ataxia ([facility] V24, [facility] V28) Overview (09/22/2024): Dr Hastings- yearly, EMG 2006 Nrml, MRI 2006 Non specific findings Allergic rhinitis 04/25/2019 Asthma 04/25/2019 Diabetes mellitus type 2, un complicated ([facility] V24, [facility] V28) 04/25/2019 Hypercalcemia 04/25/2019 Overview (09/22/2024): She notes she was told this a long time ago, unclear details Hypertension 04/25/2019 Hypertriglyceridemia 04/25/2019 Osteoarthritis 04/25/2019 Overview (09/22/2024): Cervical Spine, Hands/thumbs/right shoulder/knees Encounters Date Type Department Care Team Description 06/12/2025 10:45 AM EDT Office Visit General Surgery [address] [place] [id number] Rosa Ricardo MD Umbilical hernia without obstruction or gangrene (Primary Dx) 05/31/2025 7:35 AM EDT Anesthesia Event [facility] OR [address] [place] [phone] Nava Hamilton MD 05/31/2025 7:30 AM EDT - 05/31/2025 9:00 AM EDT Surgery [facility] OR [address] [place] [phone] Rosa Ricardo MD OPEN REPAIR UMBILICAL HERNIA W/MESH [[id number] (CPT )] 05/31/2025 5:55 AM EDT - 05/31/2025 10:37 AM EDT Hospital Encounter [facility] Main OR [address] [place] [address] Rosa Ricardo MD Umbilical hernia [...] HISTORICAL TUBAL LIGATION OTHER SURGICAL HISTORY PROCEDURE: TX TX ECTOPIC ABDOMINAL/VAGINAL APPR; COMMENT: removal of tube/ovary APPENDECTOMY PROCEDURE: HISTORICAL APPENDECTOMY OTHER SURGICAL HISTORY 06/08/2018 Right PROCEDURE: TX ARTHROPLASTY GLENOHUMERAL JOINT TOTAL SHOULDER; COMMENT: Dr [...] on HD Father diabetes, heart issues , [place]? Stroke Mother Arthritis Sister Relation Name Status [...] this topic Medical Devices Implanted Type Area Gear Technician Device Identifier Shelf Expiration Date Model / Serial / Lot Mesh Ventralex St 1.7in Sm [place] W/Strap - Sna - [id number] Implanted:Qty: 1 on 05/31/2025 by Rosa Ricardo MD at [facility] Surgical Mesh Sling Implants N/A: Abdomen CR BARD - DAVOL DIV [id number] 11/10/2026 [id number] / NA / [id number] Procedures Procedure Name Priority Date/Time Associated Diagnosis Comments POCT GLUCOSE BLOOD Routine 05/31/2025 10 :02 AM EDT TISSUE EXAM Routine 05/31/2025 8:20 AM EDT Umbilical hernia without obstruction or gangrene TH AN LMA(NO CHARGE) Routine 05/31/2025 8:05 AM EDT TX REPR ANT ABD HERNIA(S) ANY APPR INIT [...] - 100 mg/dL 05/31/2025 10:03 AM EDT [facility] Blood Capillary blood specimen / Unknown 05/31/2025 10:02 AM EDT 05/31/2025 10:05 AM EDT us Rosa Ricardo MD LAB POINT OF CA RE TEST DOCKED DEVICE UNSOLICITED RESULTS Final Result [facility] [address] [place] [address], [place] [phone] * Tissue exam (05/31/2025 8:20 AM EDT) Final Diagnosis Omentum-hernia repair: -ADIPOSE TISSUE CONSISTENT WITH OMENTUM 06/01/2025 1:17 PM EDT [facility] Gross Description A. Omentum, incarcerated: Labeled incarcera, omentum . Received in formalin is a 29 g, 9.2 x 5.5 x 1.5 cm lobulated, capellan-yellow portion of well vascularized fibrofatty adipose tissue, consistent with omentum. Cut surfaces are glistening, yellow and lobular. No masses or lesions identified. Electrical Engineering Intern sections are submitted in one cassette, two pieces. KR 06/01/2025 1:17 PM EDT [facility] Disclaimer Unless otherwise specified, all tissue is 10% NB formalin fixed and paraffin embedded. 06/01/2025 1:17 PM EDT [facility] Tissue Omentum structure / Unknown 05/31/2025 8:20 AM EDT 05/31/2025 10:42 AM EDT us Rosa Ricardo MD LAB PATHOLOGY ORDERABLE S Final Result [facility] [address] [place] [address], * TH AN LMA(NO CHARGE) (05/31/2025 8:05 [...] GEMUSE QTc 442 ms GEMUSE P Wave [place] 52 degrees GEMUSE R [place] 40 degrees GEMUSE T [place] 32 degrees GEMUSE ECG Interpretation Normal sinus rhythm Normal ECG No previous ECGs available Confirmed by MD Jules Christopher ([id number]) on 05/24/2025 9:54:07 PM GEMUSE 05/24/2025 9:07 AM EDT 05/24/2025 9:54 PM EDT Result [facility] Rosa Ricardo MD ECG ORDERABLES Final R esult GEMUSE * Hepatitis C Screening (09/08/2023) [facility] Hepatitis C Screening abstracted Result [facility] HEALTH MAINTENANCE Final Result * Annual BMP Blood Test (09/02/2023) [facility] Annual BMP Blood Test abstracted Result [facility] HEALTH MAINTENANCE Final Result * (ABNORMAL) Hemoglobin A1c (09/02/2023) [facility] Hemoglobin A1C 6.8(A) <=6.5 % Blood Venous blood specimen / Unknown Result [facility] Provider LAB BLOOD ORDERABLES Eneida l Result * (ABNORMAL) Lipid panel (09/02/2023) [facility] LDL/HDL Ratio 5(A) 0 - 4 Triglycerides 375(A) 0 - 150 mg/dL Cholesterol 206(A) 0 - 200 mg/dL HDL 43 >=40 mg/dL LDL Cholesterol 88 0 - 100 mg/dL Blood Venous blood specimen / Unknown Result [facility] Provider LAB BLOOD ORDERABLES Eneida l Result * Urine Albumin Creatinine Ratio (03/02/2023) [facility] Urine Albumin Creatinine Ratio abstracted Result [facility] Leela [facility] HE[facility] MAINTENANCE Final Result from Last 3 Months or Most Recently Relevant to Health Maintenance Insurance MEDICARE [facility] Advance Directives * Full Code - [...] currently active code status orders. Care Teams Prosthetic Lab Technician Relationship Specialty Start Date End Date Reshma Vinson PA [address] [place] [address] [place] [address] PCP - General Physician Bilingual Account Manager 01/09/25
--- OUTSIDE RECORDS SUMMARY | 2025-08-08 09:10 | XMS_ITS | Data Portability ---
Author Organization [facility] [address] Address [address] [place] [address] Assessment No assessment recorded. Plan of Treatment Reminders Order Date Submit Date Provider Last Modified By Organization Details Last Modified Time Details Appointments None recorded. Lab None recorded. Referral None recorded. Procedures None recorded. Surgeries None recorded. Imaging None recorded. Medication Orders Advair Diskus 250 mcg-50 mcg/dose powder for inhalation 2023 024 JAQUELINE [facility] #[id number], [address] [place], [address], 4 13:28:23 prednisone 50 mg tablet 2023 024 [email or web address] [facility] #[id number], [address] [place], [address], 4 17:02:25 Patient TargetsNo targets recorded. Patient InstructionsNo instructions recorded. Reason for Referral None Reported. Problems Name Problem SNOMED Code Status Onset Date Resolution Date Notes Provider Name and Address Organization Details Recorded Time Hypertensive disorder 53936857 Active Vidhya Suresh null, PA - [facility] 4 13:07:32 Asthma 558644430 Active Vidhya Suresh null, [place] - [facility] 4 13:07:59 Cough 55813335 Active 2023 Rodriguez Matthews, DO [address] [place], [address] , [place] - [facility] 4 13:27:38 [...] Name and Address Organization Details Recorded Time 624422 diclofena c Not available dizziness Not available [...] (BMI) Body weight Body temperature Oxygen saturation Respiratory rate Heart rate Pain severity - 0-10 verbal numeric rating [Score] - Reported Systolic And Diastolic Provider Name and Address Organization Details Last Updated DateTime 4 165.1 cm 34.9 kg/m2 70089.4 g 97 [degF] 95 % 20 /min 81 /min 0 182/85 mm[Hg] Vidhya COSTA - [facility] 4 13:05:03 Social History [...] ICD10 Code Diagnosis IMO Codes Diagnosis Note [id number] [facility] [address] [address] 08/12/2018 11:38:37 08/12/2018 12:24:36 [id number] Rodriguez Matthews [place] [address] [address] 03/01/2024 12:54:51 03/01/2024 13:30:24 Cough 52066817 R05.9 See pcp in 3-4 days. Go [...] ID Guarantor Name 03/01/2024 1 [place] [employer] Eloisa Rivero [id number] Eloisa Rivero 03/01/2024 2 [place] [id number] Eloisa Rivero [id number] Eloisa Rivero Notes Date Note Type [...] Matthews DO [address] [place], [address], [place] - [facility] 03/01/2024 17:02:40 OBGyn Episode No OBEpisode recorded.
== END 2025-08-08 09:06 | disposition home or self-care (01) ==
PROVIDERS: PCP Physician Assistant Medical; Visit Provider Student in an Organized Health Care Education/Training Program
DX: E83.52 Hypercalcemia (principal)
CPT/HCPCS: 99214

== ENCOUNTER → 2025-08-08 08:46 | Outpatient (BNVA) | payer MEDICARE, SELFPAY | PROVIDERS: PCP Physician Assistant Medical; Visit Provider Student in an Organized Health Care Education/Training Program | DX: E83.52 Hypercalcemia (principal) | CPT/HCPCS: 99212 ==

== ENCOUNTER 2025-09-05 09:01 | Outpatient (AMB) | payer MEDICARE, SELFPAY ==
--- OUTSIDE RECORDS SUMMARY | 2025-09-05 09:07 | XMS_ITS | Data Portability ---
Author Organization [facility] [address] Address [address] [place] [address] Assessment No assessment recorded. Plan of Treatment Reminders Order Date Submit Date Provider Last Modified By Organization Details Last Modified Time Details Appointments None recorded. Lab None recorded. Referral None recorded. Procedures None recorded. Surgeries None recorded. Imaging None recorded. Medication Orders Advair Diskus 250 mcg-50 mcg/dose powder for inhalation 2023 024 JAQUELINE [facility]/Pharmacy #[id number], [address] [place], [address], 4 13:28:23 prednisone 50 mg tablet 2023 024 [email or web address] [facility]arm[facility] #[id number], [address] [place], [address], 4 17:02:25 Patient TargetsNo targets recorded. Patient InstructionsNo instructions recorded. Reason for Referral None Reported. Problems Name Problem SNOMED Code Status Onset Date Resolution Date Notes Provider Name and Address Organization Details Recorded Time Hypertensive disorder 18308338 Active Vidhya Suresh null, PA - [facility] 4 13:07:32 Asthma 496468478 Active Vidhya Suresh null, PA - [facility] 4 13:07:59 Cough 18904814 Active 2023 Rodriguez Matthews, DO [address] [place], [address] , [place] - [facility] 4 13:27:38 [...] Name and Address Organization Details Recorded Time 266793 diclofena c Not available dizziness Not available [...] Updated DateTime 4 165.1 cm 34.9 kg/m2 44957.4 g 97 [degF] 95 % 20 /min [...] ICD10 Code Diagnosis IMO Codes Diagnosis Note [id number] [address] [address] [address] 08/12/2018 11:38:37 08/12/2018 12:24:36 [id number] Rodriguez Matthews [place] [address] [address] 03/01/2024 12:54:51 03/01/2024 13:30:24 Cough 91078321 R05.9 See pcp in 3-4 days. Go [...] ID Guarantor Name 03/01/2024 1 [place] [employer] Eloisa Rivero [id number] Eloisa Rivero 03/01/2024 2 [place] [id number] Eloisa Rivero [id number] Eloisa Rivero Notes Date Note Type [...] Matthews DO [address] [place], [address], [place] - [facility] 03/01/2024 17:02:40 OBGyn Episode No OBEpisode recorded.
--- OUTSIDE RECORDS SUMMARY | 2025-09-05 09:07 | XMS_ITS | Encounter Summary ---
Author Organization [facility] [place] [address] Care Team Providers Care Bus Company Manager Name Role Phone Reshma Vinson Primary Care Provider [phone] Encounter Details Date Type Department Care Team ([facility] st Contact Info) Description 08/29/2025 Lab Requisition [facility] - Main Lab [address] [facility] [place] [phone] Dipika De León MD [address] [facility] [address] [place] [phone] Polyp of cervix uteri Social History Tobacco Use Types Packs/Day Years [...] on file documented as of this encounter Procedures Procedure Name Priority Date/Time Associated Diagnosis Comments TISSUE EXAM Routine 08/29/2025 Polyp of cervix uteri documented in this encounter Results * Tissue Exam (08/29/2025) Final Diagnosis Cervical polyp: Benign endocervical polyp 08/30/2025 10:41 AM [facility] at 1041 EST Clinical Information Cervical polyp 08/30/2025 10:41 AM [facility] Gross Description A. Cervix, polyp: Labeled with the patient's name and information . Received in formalin is a rubbery, white to red, 1.2 cm in greatest diameter polypoid tissue with minimal attached mucoid material. The cut surfaces are multicystic. The specimen is wrapped in paper and submitted in entirety in one cassette, two + multiple pieces, x 2. TS 08/30/2025 10:41 AM [facility] Disclaimer Unless otherwise specified, all tissue is 10% NB formalin fixed and paraffin embedded. 08/30/2025 10:41 AM [facility] Tissue Cervix uteri structure / Unknown 08/29/2025 08/29/2025 1:37 PM EST us Dipika De León MD LAB PATHOLOGY ORDERABLES Final Result [facility] [address] [place] [address], documented in this encounter Visit Diagnoses Diagnosis Polyp of cervix uteri Mucous polyp of cervix documented in this encounter Care Teams Bus Company Manager Relationship Specialty Start Date End Date Reshma Vinson PA [address] [place] [id number] PCP - General Physician Wind Farm Operations Manager 01/09/25 documented as of this encounter
--- OUTSIDE RECORDS SUMMARY | 2025-09-05 09:07 | XMS_ITS | Clinical Summary ---
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 Overview (09/22/2024): Dr Hastings- yearly, EMG 2006 [facility], MRI 2006 Non specific findings Allergic rhinitis 04/25/2019 Asthma 04/25/2019 Diabetes mellitus type 2, uncomplicated 04/25/20 19 Hypercalcemia 04/25/2019 Overview (09/22/2024): She notes she was told this a long time ago, unclear details Hypertension 04/25/2019 Hypertriglyceridemia 04/25/2019 Osteoarthritis 04/25/2019 Overview (09/22/2024): Cervical Spine, Hands/thumbs/right shoulder/knees Encounters Date Type Department Care Team Description 08/29/2025 Lab Requisition [facility] - Main Lab [address] [facility] [place] [address] Dipika De León MD Polyp of cervix uteri 06/12/2025 10:45 AM EDT Office Visit General Surgery - [facility] [address] [facility] [address] [place] [address] Rosa Ricardo MD Umbilical hernia without obstruction or gangrene (Primary Dx) from Last 3 Months Immunizations Immunization Administration [...] HISTORICAL TUBAL LIGATION OTHER SURGICAL HISTORY PROCEDURE: SC TX ECTOPIC ABDOMINAL/VAGINAL APPR; COMMENT: removal of tube/ovary APPENDECTOMY PROCEDURE: HISTORICAL APPENDECTOMY OTHER SURGICAL HISTORY 06/08/2018 Right PROCEDURE: SC ARTHROPLASTY GLENOHUMERAL JOINT TOTAL SHOULDER; COMMENT: Dr [...] on HD Father diabetes, heart issues , [place]? Stroke Mother Arthritis Sister Relation Name Status [...] on file Sexual Orientation Not on file Last Filed Vital Signs [...] 01/27/1960 Diabetes: Annual Retina Eye Exam 01/27/1960 Medicare Annual Wellness Visit 08/22/2022 Osteoporosis Screening [...] patient's age to complete this topic Hepatitis A Vaccines Aged Out No long er eligible based on patient's age to complete this topic Hepatitis B Vaccines Aged Out No long er eligible based on patient's age to complete [...] this topic Medical Devices Implanted Type Area Entry Examiner Device Identifier Shelf Expiration Date Model / Serial / Lot Mesh Ventralex St 1.7in [place] W/Strashaista - Sna - [id number] Implanted:Qty: 1 on 05/31/2025 by Rosa Ricardo MD at [facility] Surgical Mesh Sling Implants N/A: Abdomen CR BARD - DAVOL DIV [id number] 11/10/2026 [id number] / NA / [id number] Procedures Procedure Name Priority Date/Time Associated Diagnosis Comments TISSUE EXAM Routine 08/29/2025 Polyp of cervix uteri HEPATITIS C SCREENING Routine 09/08/2023 ANNUAL BMP BLOOD TEST Routine 09/02/2023 HEMOGLOBIN A1C Routine 09/02/2023 LIPID PANEL Routine 09/02/2023 URINE ALBUMIN CREATININE RATIO Routine 03/02/2023 from Last 3 Months or Most Recently Relevant to Health Maintenance Results * Tissue Exam (08/29/2025) Final Diagnosis Cervical polyp: Benign endocervical polyp 08/30/2025 10:41 AM [facility] at 1041 EST Clinical Information Cervical polyp 08/30/2025 10:41 AM [facility] Gross Description A. Cervix, polyp: Labeled with the patient's name and information . Received in formalin is a rubbery, white to red, 1.2 cm in greatest diameter polypoid tissue with minimal attached mucoid material. The cut surfaces are multicystic. The specimen is wrapped in paper and submitted in entirety in one cassette, two + multiple pieces, x 2. TS 08/30/2025 10:41 AM [facility] Disclaimer Unless otherwise specified, all tissue is 10% NB formalin fixed and paraffin embedded. 08/30/2025 10:41 AM [facility] Tissue Cervix uteri structure / Unknown 08/29/2025 08/29/2025 1:37 PM EST Dipika De León MD LAB PATHOLOGY ORDERABLES Final Result [facility] [address] [place] [address], * Hepatitis C Screening (09/08/2023) Pathologist [facility] Hepatitis C Screening abstracted Historical Provider HEALTH MAINTENANCE Final Result * Annual BMP Blood Test (09/02/2023) Pathologist [facility] Annual BMP Blood Test abstracted Historical Provider HEALTH MAINTENANCE Final Result * (ABNORMAL) Hemoglobin A1c (09/02/2023) Pathologist [facility] Hemoglobin A1C 6.8(A) <=6.5 % Blood Venous blood specimen / Unknown Result [facility] Historical Provider LAB BLOOD ORDERABLES Eneida l Result * (ABNORMAL) Lipid panel (09/02/2023) [facility] LDL/HDL Ratio 5(A) 0 - 4 Triglycerides 375(A) 0 - 150 mg/dL Cholesterol 206(A) 0 - 200 mg/dL HDL 43 >=40 mg/dL LDL Cholesterol 88 0 - 100 mg/dL Blood Venous blood specimen / Unknown Result [facility] Historical Provider LAB BLOOD ORDERABLES Eneida l Result * Urine Albumin Creatinine Ratio (03/02/2023) Pathologist [facility] Urine Albumin Creatinine Ratio abstracted Historical Provider HEALTH MAINTENANCE Final Result from Last 3 Months or Most Recently Relevant to Health Maintenance Insurance MEDICARE [facility] Advance Directives * Full Code - [...] currently active code status orders. Care Teams Outbound Sales Executive Relationship Specialty Start Date End Date Reshma Vinson PA [address] [facility] [place] [id number] PCP - General Physician Secret Code Expert 01/09/25
--- NOTE | 2025-09-05 09:09 | A.OFFVIS_ITS ---
Vital Signs 09/05/25 09:11 Height 5 ft 5 in Weight 200 lb 2.876 oz BMI 33.3 BP 160/78 H Blood Pressure Location Rt brachial Position Sitting Respiration 18 Pulse 65 Pulse Source Pulse Oximeter Temp 97.5 F Temp Source Temporal Artery Scan Pulse Oximetry (%) 98 Oxygen Delivery Method Room Air Intake Visit Reasons: elevated lft Dairy Products Maker Required: No Accompanied by: Self / Same As Patient Allergies diclofenac Allergy (Unknown, Verified 09/05/25 09:19) Unknown hydromorphone Allergy (Unknown, Verified 09/05/25 09:19) Nausea and Vomiting NSAIDS (Non-Steroidal Anti-Inflamma Allergy (Unknown, Verified 09/05/25 09:19) Diarrhea HPI Comments Details: 74 y.o F with PMH of HTN, HLD, T2DM who is here to establish care for elevated LFTs. Reports had this done as part of physical last year and at that time the transaminases were elevated. These have now improved. Hep serologies are engative. She also had US abd with elastography done as part of work up that showed steatosis without any fibrosis. Pt does not drink on a regular basis. Last drink > 1 year ago. Does have known DM and HLD. In Jun 2024 she was drinking a lot of sugar drinks to help keep her mouth moist and help break up sputum and mucus that she was spitting up due to asthma. A1c at that time was > 14 and LFTs had also spiked. Now with improvement of A1c her LFTs have also trended down. She herself does not have any abd pain, N,V, change in bowel habits. 09/05/25: Patient here for follow-up for elevated LFTs. Labs reviewed. Updated Fib 4 1.76, improved from 2.05 last time. However, patient remains slightly upset that her elastography shows mild progression of liver disease. Did attempt to clarify that this still argues against any advanced fibrosis and that Fib 4 has in fact reduced so she should not be discouraged by her efforts. Recommendation for gradual but persistent lifestyle changes remain i.e mod to high protein intake, reduce trans and saturated fats. She is doing wonderful with the glycemic control. Exercise is limited due to R hip pain, advised to discuss ? arthritis with PCP. [facility] Medical History Joint pain Dermatitis Renal cyst Nephrolithiasis Controlled type 2 diabetes mellitus Umbilical hernia Hepatic steatosis Serum calcium elevated Elevated LFTs Uncontrolled type 2 diabetes mellitus with hyperglycemia Ataxia Perennial allergic rhinitis Fracture of fifth metatarsal bone of right foot Mixed hyperlipidemia Essential hypertension Mild persistent asthma without complication Osteoarthritis Allergic rhinitis Diabetes HTN (hypertension) Surgical History Hx of tubal ligation History of appendectomy H/O shoulder replacement Family History Mother Stroke Father CKD (chronic kidney disease) Diabetes Sister Arthritis Social History Housing: House Alcohol intake: never Patient Tobacco Use Status: Never used Tobacco e-Cigarette/Vaping Use: Never Used service: No Current occupational status: retired Cognitive needs: No Hearing needs: No Vision needs: No Review of Systems Const All systems reviewed & are unremarkable except as noted in HPI and below Denies daytime sleepiness, Denies difficulty sleeping, Denies snoring, Denies stops breathing during sleep and Denies weakness Card Denies chest pain, Denies rapid heart rate, Denies irregular heart rhythm, Denies claudication, Denies leg edema, Denies lightheadedness, Denies palpitations, Denies dyspnea, Denies dyspnea on exertion, Denies orthopnea, Denies paroxysmal nocturnal dyspnea and Denies slow heart rate Resp Denies cough, Denies dyspnea, Denies dyspnea on exertion and Denies snoring GI Reports no additional complaints, Denies hematochezia, Denies change in stool character and Denies dyspepsia Musc Denies abnormal gait, Denies muscle weakness and Denies numbness Neuro Denies abnormal gait, Denies numbness and Denies weakness Endo Denies palpitations Physical Exam Exam Exam: No apparent distress Nonicteric Abdomen soft, nondistended R hand 3rd digit with trigger finger Alert and oriented x3, normal gait Vital Signs: Last Vital Signs Temp 97.5 F 09/05/25 09:11 Pulse 65 09/05/25 09:11 Resp 18 09/05/25 09:11 BP 160/78 H 09/05/25 09:11 Pulse Ox 98 09/05/25 09:11 Oxygen Delivery Method Room Air 09/05/25 09:11 BMI result Body Mass Index 33.3 Results Reviewed Results Reviewed: Laboratory Tests 11/10/24 03/22/25 03/22/25 10:33 10:26 10:52 Hemoglobin A1c % Triglycerides IgG 1052 IgA 425 H IgE 147 H JOSELYN Screen JOSELYN Titer 1:80 H Anti-Smooth Muscle Ab <20 Tiss Transglutamin IgA <1.0 PEth 16:0/18.2 (PLPEth) NEGATIVE Gloria/Kid Microsom Ab Int <=20.0 Hepatitis A IgG Ab Nonreactive Hep Bs Antibody NONREACTIVE Hepatitis C Ab (EIA) Nonreactive HIV 1&2 Ab/P24 Ag 4thGn Nonreactive 06/19/25 07/12/25 10:37 10:25 Hemoglobin A1c % 6.5 H Triglycerides 261 H IgG IgA IgE JOSELYN Screen NEGATIVE JOSELYN Titer Anti-Smooth Muscle Ab Tiss Transglutamin IgA PEth 16:0/18.2 (PLPEth) Gloria/Kid Microsom Ab Int Hepatitis A IgG Ab Hep Bs Antibody Hepatitis C Ab (EIA) HIV 1&2 Ab/P24 Ag 4thGn Assessment & Plan Assessment & Plan (1) Elevated LFTs: Code(s): R79.89 - Other specified abnormal findings of blood chemistry Category: Medical (2) Hepatic steatosis: Code(s): K76.0 - Fatty (change of) liver, not elsewhere classified Category: Medical (3) Obesity (BMI 30.0-34.9): Code(s): E66.811 - Obesity, class 1 Category: Medical Plan Reviewed with the patient that most likely had elevated LFT secondary to MAFLD/MASH based on clinical risk factors. Fib 4 has improved from before. No advanced fibrosis at this time. Mainstay of management remains lifestyle changes as below. Plan: - Normal BMI idea, but weight loss of at least 10% TBW in 6 months advised i.e target weight 175-180 lbs by February 2026. - At least 150 mins of moderate intensity exercise per week. Discussed non weight bearing exercises jolanta with R hip pain. - Consider GLP-1 agonist for i) DM, ii) obesity and iii) MASH - pt encouraged to review this with PCP/tower hand at next visit - Consider flat bed operator referral - Repeat elastography ordered for December 2025. - Updated Fib 4 to be done at that time as well Follow up 5 months Orders: Orders Complete Blood Count Auto Diff 12/17/25 R79.89 - Other specified abnormal findings of blood chemistry Comprehensive Met. Panel 12/17/25 R79.89 - Other specified abnormal findings of blood chemistry US abdomen comp w elastography 12/17/25 R7. - Other specified abnormal findings of blood chemistry Coding Level of Care Code Est Pt Level 4 (16602) Diagnoses Elevated LFTs R7. Hepatic steatosis K76.0 Obesity (BMI 30.0-34.9) E66.811
[2025-09-05 09:11] VITALS: BP 160/78; PULSE 65; RESP 18; TEMP 36.4; O2SAT 98; BMI 33.3
== END 2025-09-05 10:08 | disposition home or self-care (01) ==
LOC: HO.HGI 09:02
PROVIDERS: PCP Physician Assistant Medical; Visit Provider Internal Medicine
DX: R79.89 Other specified abnormal findings of blood chemistry (principal); K76.0 Fatty (change of) liver, not elsewhere classified; E66.811 Obesity, class 1
CPT/HCPCS: 99214

== ENCOUNTER → 2025-09-05 09:01 | Outpatient (BNVA) | payer MEDICARE, SELFPAY | PROVIDERS: PCP Physician Assistant Medical; Visit Provider Internal Medicine | DX: K76.0 Fatty (change of) liver, not elsewhere classified (principal); R79.89 Other specified abnormal findings of blood chemistry; E66.9 Obesity, unspecified; Z68.33 Body mass index [BMI] 33.0-33.9, adult | CPT/HCPCS: 99212 ==